=== PATIENT | male | born 1945 | race Caucasian/White ===

== ENCOUNTER → 2018-04-06 | Day surgery (SDC) | payer MEDICARE, BC ==
[2018-04-04 09:59] VITALS: BMI 41.5
[~2018-04-06] MED LIST: LACTATED RINGERS 1,000 ML IV SCH; LIDOCAINE 1% 20 ML VIAL (10MG/ML) FOR IV START INTRADERMA PRN; LIDOCAINE 1% INJ 10MG/ML (20 ML MDV) ONE; PROPOFOL 10 MG/ML 20 ML VIAL IV ONE
[2018-04-06 13:04] VITALS: RESP 16; TEMP 98.3
[2018-04-06 13:08] LABS: Glucose,Whole Blood 167 mg/dL (75-99)
--- NOTE | 2018-04-06 14:34 | P.GSHP ---
History of Present Illness H&P Date: 04/06/18 CHIEF COMPLAINT: Colon screen HISTORY OF PRESENT ILLNESS: The patient is a 72-year-old male who presents for colon screen. Lower endoscopy was offered for further evaluation and management. PAST MEDICAL HISTORY: Please see list. PAST SURGICAL HISTORY: Please see list. MEDICATIONS: Please see list. ALLERGIES: Please see list. SOCIAL HISTORY: No illicit drug use FAMILY HISTORY: No reports of Crohn disease or ulcerative colitis. REVIEW OF ORGAN SYSTEMS: CONSTITUTIONAL: No reports of fevers or chills. PHYSICAL EXAM: VITAL SIGNS: Stable GENERAL: Well-developed pleasant in no acute distress. HEENT: No scleral icterus. Extraocular movements grossly intact. Moist buccal mucosa. NECK: Supple without lymphadenopathy. CHEST: Unlabored respirations. Equal bilateral excursions. CARDIOVASCULAR: Regular rate and rhythm. Distal 2+ pulses. ABDOMEN: Soft, nontender, nondistended. MUSCULOSKELETAL: No clubbing, cyanosis, or edema. ASSESSMENT: 1. Colon screen. PLAN: 1. 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 Last Myocardial Infarction Date:: 2012 History of Any Multi-Drug Resistant Organisms: None Reported Past Surgical History: Coronary Bypass/CABG, Heart Catheterization With Stent, Hernia Repair, Orthopedic Surgery Additional Past Surgical History / Comment(s): CABG X4-2006, STENT X1, UMBILICAL AND INCISIONAL HERNIA, RT SHOULDER ARTHROSCOPY, RT KNEE ARTHROSCOPY Past Anesthesia/Blood Transfusion Reactions: No Reported Reaction Date of Last Stent Placement:: 2011 Smoking Status: Former smoker - Past Family History Mother Family Medical History: Deep Vein Thrombosis (DVT) Medications and Allergies Home Medications Medication Instructions Recorded Confirmed Type Aspirin 162 mg PO DAILY 11/08/13 04/04/18 History Clopidogrel [Plavix] 75 mg PO DAILY 11/08/13 04/04/18 History FLUoxetine HCL [PROzac] 20 mg PO DAILY 11/08/13 04/04/18 History Metoprolol Tartrate [Lopressor] 50 mg PO BID 11/08/13 04/04/18 History Nitroglycerin Sl Tabs [Nitrostat] 0.4 mg PO Q5M PRN 11/08/13 04/04/18 History Pantoprazole Sodium [Protonix] 40 mg PO HS 11/08/13 04/04/18 History metFORMIN HCL [Glucophage] 500 mg PO TID 11/08/13 04/04/18 History Cholecalciferol [Vitamin D3] 1,000 unit PO DAILY 08/13/15 04/04/18 History Multivitamins, Thera [Multivitamin] 1 tab PO DAILY 08/13/15 04/04/18 History Psyllium Husk 100% [Metamucil] 6 gm PO DAILY 08/13/15 04/04/18 History Atorvastatin [Lipitor] 40 mg PO DAILY 04/04/18 04/04/18 History Finasteride [Proscar] 5 mg PO DAILY 04/04/18 04/04/18 History Losartan Potassium [Cozaar] 100 mg PO QAM 04/04/18 04/04/18 History Allergies Allergy/AdvReac Type Severity Reaction Status Date / Time adhesive Allergy red skin Verified 04/06/18 12:55 bacitracin Allergy Rash/Hives Verified 04/06/18 12:55 [From Neosporin ([id number])] bacitracin zinc Allergy Rash/Hives Verified 04/06/18 12:55 [From Neosporin ([id number])] neomycin sulfate Allergy Rash/Hives Verified 04/06/18 12:55 [From Neosporin ([id number])] polymyxin B Allergy Rash/Hives Verified 04/06/18 12:55 [From Neosporin ([id number])] Surgical - Exam Vital Signs Temp Pulse Resp BP Pulse Ox 98.3 F 61 16 159/84 97 04/06/18 13:03 04/06/18 13:03 04/06/18 13:03 04/06/18 13:03 04/06/18 13:03 Results - Labs Abnormal Lab Results - Last 24 Hours (Table) 04/06/18 Range/Units 13:05 POC Glucose (mg/dL) 167 H (75-99) mg/dL
--- NOTE | 2018-04-06 14:40 | P.PCN ---
Date of Procedure: 04/06/18 Description of Procedure: PREOPERATIVE DIAGNOSIS: Personal history of colon polyps. Family history of colon cancer, brother POSTOPERATIVE DIAGNOSIS: Personal history of colon polyps. Family history of colon cancer, brother Multiple tubular adenomas throughout the colon. Diverticulosis with diverticulitis OPERATION: Colonoscopy to the ileocecal valve and appendiceal orifice. Colonoscopy with multiple hot snare polypectomies SURGEON: Faviola Arroyo MD. ANESTHESIA: MAC. INDICATIONS: The patient is a 72-year-old male who presents for colonoscopy screening. Last colonoscopy 3 years ago. Benefits and risks were described and informed consent was obtained. DESCRIPTION OF PROCEDURE: The patient had undergone Gatorade, MiraLAX and Dulcolax prep. He had been brought into the operating room and laid in the left lateral decubitus position. The prostate was unremarkable. After adequate intravenous sedation, the rectum was examined with 2% lidocaine jelly. External hemorrhoids were encountered. The rectal tone was within normal limits. No lesions were palpated in the rectal vault. An Olympus colonoscope was advanced until the ileocecal valve and appendiceal orifice were clearly viewed. Abdominal pressure was used to advance the scope. He had a highly redundant sigmoid colon. The prep was fair. No scattered diverticulosis was encountered. Multiple colonic polyps were found and snare polypectomy. Focal colitis was found. Retroflexion of the scope demonstrated no grade 1 internal hemorrhoids. The colon was desufflated. The patient had tolerated the procedure well. Withdrawal time was over 6 minutes. FINDINGS: No internal hemorrhoids No external hemorrhoids No arteriovenous malformations Severe sigmoid diverticulosis with diverticulitis Removal of 5 polyps: - Snare polypectomy ascending colon 2, 5 mm tubulovillous adenoma polyp. - Snare polypectomy hepatic flexure 2, 8 mm and 6 mm villous adenoma polyp. - Snare polypectomy proximal transverse colon, 11 mm villous adenoma polyp. Sigmoid focal colitis. RECOMMENDATIONS: Given severity of tubular adenomas, repeat colonoscopy in 6 months, September 2018 Plan - Discharge Summary New Discharge Prescriptions: No Action metFORMIN HCL [Glucophage] 500 mg PO TID Pantoprazole Sodium [Protonix] 40 mg PO HS Nitroglycerin Sl Tabs [Nitrostat] 0.4 mg PO Q5M PRN PRN Reason: Angina Metoprolol Tartrate [Lopressor] 50 mg PO BID FLUoxetine HCL [PROzac] 20 mg PO DAILY Clopidogrel [Plavix] 75 mg PO DAILY Aspirin 162 mg PO DAILY Psyllium Husk 100% [Metamucil] 6 gm PO DAILY Multivitamins, Thera [Multivitamin] 1 tab PO DAILY Cholecalciferol [Vitamin D3] 1,000 unit PO DAILY Atorvastatin [Lipitor] 40 mg PO DAILY Finasteride [Proscar] 5 mg PO DAILY Losartan Potassium [Cozaar] 100 mg PO QAM Discharge Medication List Aspirin 162 mg PO DAILY 11/08/13 [History] Clopidogrel [Plavix] 75 mg PO DAILY 11/08/13 [History] FLUoxetine HCL [PROzac] 20 mg PO DAILY 11/08/13 [History] Metoprolol Tartrate [Lopressor] 50 mg PO BID 11/08/13 [History] Nitroglycerin Sl Tabs [Nitrostat] 0.4 mg PO Q5M PRN 11/08/13 [History] Pantoprazole Sodium [Protonix] 40 mg PO HS 11/08/13 [History] metFORMIN HCL [Glucophage] 500 mg PO TID 11/08/13 [History] Cholecalciferol [Vitamin D3] 1,000 unit PO DAILY 08/13/15 [History] Multivitamins, Thera [Multivitamin] 1 tab PO DAILY 08/13/15 [History] Psyllium Husk 100% [Metamucil] 6 gm PO DAILY 08/13/15 [History] Atorvastatin [Lipitor] 40 mg PO DAILY 04/04/18 [History] Finasteride [Proscar] 5 mg PO DAILY 04/04/18 [History] Losartan Potassium [Cozaar] 100 mg PO QAM 04/04/18 [History]
[2018-04-06 14:46] VITALS: BP 115/66; PULSE 59
== END | disposition home or self-care (01) ==
LOC: ORWHC2ENDO 12:23
PROVIDERS: ATTEND Surgery Plastic and Reconstructive Surgery
DX: Z12.11 Encounter for screening for malignant neoplasm of colon (principal); D12.2 Benign neoplasm of ascending colon; D12.3 Benign neoplasm of transverse colon; K52.9 Noninfective gastroenteritis and colitis, unspecified; K57.32 Diverticulitis of large intestine without perforation or abscess without bleeding; K64.4 Residual hemorrhoidal skin tags; Q43.8 Other specified congenital malformations of intestine; E11.9 Type 2 diabetes mellitus without complications; E78.5 Hyperlipidemia, unspecified; I25.10 Atherosclerotic heart disease of native coronary artery without angina pectoris; I25.2 Old myocardial infarction; I42.9 Cardiomyopathy, unspecified; K21.9 Gastro-esophageal reflux disease without esophagitis; Z79.82 Long term (current) use of aspirin; Z80.0 Family history of malignant neoplasm of digestive organs; Z85.828 Personal history of other malignant neoplasm of skin; Z86.010 Personal history of colon polyps; Z87.442 Personal history of urinary calculi; Z87.891 Personal history of nicotine dependence; Z95.1 Presence of aortocoronary bypass graft; Z79.84 Long term (current) use of oral hypoglycemic drugs; Z79.02 Long term (current) use of antithrombotics/antiplatelets; Z79.899 Other long term (current) drug therapy; Z88.3 Allergy status to other anti-infective agents
CPT/HCPCS: 88305; 45385; J2001; J2704

== ENCOUNTER → 2018-05-04 | Outpatient (CLI) | payer MEDICARE, BC ==
--- NOTE | 2018-05-04 13:35 | XR ---
EXAMINATION TYPE: XR chest 2V DATE OF EXAM: 05/04/2018 COMPARISON: Prior chest x-ray 09/23/2015 HISTORY: Pleurisy TECHNIQUE: Frontal and lateral views of the chest are obtained. FINDINGS: Patient is post median sternotomy and there is increased AP diameter chest with flattening the hemidiaphragms consistent with underlying COPD. There is no focal air space opacity, pleural eff usion, or pneumothorax seen. The cardiac silhouette size is within normal limits. The osseous stru ctures are intact. IMPRESSION: No acute cardiopulmonary process.
== END ==
LOC: RADXRMAIN 12:26
PROVIDERS: ATTEND Family Medicine
DX: R09.1 Pleurisy (principal)
CPT/HCPCS: 71046

== ENCOUNTER 2018-10-04 07:10 | Day surgery (SDC) | payer MEDICARE, BC ==
[2018-09-28 14:39] VITALS: BMI 42.7
[~2018-10-04 07:10] MED LIST changes: -LIDOCAINE 1% INJ 10MG/ML (20 ML MDV) ONE; -PROPOFOL 10 MG/ML 20 ML VIAL IV ONE
--- NOTE | 2018-10-04 07:38 | P.GSHP ---
History of Present Illness H&P Date: 10/04/18 CHIEF COMPLAINT: Colon screen HISTORY OF PRESENT ILLNESS: The patient is a 73-year-old male who presents for colon screen. Lower endoscopy was offered for further evaluation and management. PAST MEDICAL HISTORY: Please see list. PAST SURGICAL HISTORY: Please see list. MEDICATIONS: Please see list. ALLERGIES: Please see list. SOCIAL HISTORY: No illicit drug use FAMILY HISTORY: No reports of Crohn disease or ulcerative colitis. REVIEW OF ORGAN SYSTEMS: CONSTITUTIONAL: No reports of fevers or chills. PHYSICAL EXAM: VITAL SIGNS: Stable GENERAL: Well-developed pleasant in no acute distress. HEENT: No scleral icterus. Extraocular movements grossly intact. Moist buccal mucosa. NECK: Supple without lymphadenopathy. CHEST: Unlabored respirations. Equal bilateral excursions. CARDIOVASCULAR: Regular rate and rhythm. Distal 2+ pulses. ABDOMEN: Soft, nontender, nondistended. MUSCULOSKELETAL: No clubbing, cyanosis, or edema. ASSESSMENT: 1. Colon screen. PLAN: 1. Recommend proceeding with a lower endoscopy Past Medical History Past Medical History: Coronary Artery Disease (CAD), Cancer, Chest Pain / Angina, COPD, Diabetes Mellitus, GERD/Reflux, Hyperlipidemia, Hypertension, Myocardial Infarction ([place]), Osteoarthritis (OA), Prostate Disorder Additional Past Medical History / Comment(s): PAST HX CARDIOMYOPATHY, RENAL CALCULUS, SQUAMOUS CELL SKIN CANCER (2017)., MILD COPD, BPH ., ARTHRITIS IN KNE ES., HX OF COLON POLYPS, CHANGE IN BOWEL MOVEMENTS. Last Myocardial Infarction Date:: 2012 History of Any Multi-Drug Resistant Organisms: None Reported Past Surgical History: Coronary Bypass/CABG, Heart Catheterization With Stent, Hernia Repair, Orthopedic Surgery Additional Past Surgical History / Comment(s): CABG X4-2006, STENT X1, UMBILICAL AND INCISIONAL HERNIA, RT SHOULDER ARTHROSCOPY, RT KNEE ARTHROSCOPY Past Anesthesia/Blood Transfusion Reactions: No Reported Reaction Date of Last Stent Placement:: 2011 Past Psychological History: Anxiety Smoking Status: Former smoker Past Alcohol Use History: Rare Additional Past Alcohol Use History / Comment(s): quit smoking , SMOKED 1/2 PPD Past Drug Use History: None Reported - Past Family History Mother Family Medical History: Deep Vein Thrombosis (DVT) Brother(s) Family Medical History: Cancer Additional Family Medical History / Comment(s): COLON CANCER Sister(s) Family Medical History: Cancer Additional Family Medical History / Comment(s): LUNG CANCER Medications and Allergies Home Medications Medication Instructions Recorded Confirmed Type Aspirin 162 mg PO HS 11/08/13 10/04/18 History Clopidogrel [Plavix] 75 mg PO DAILY 11/08/13 10/04/18 History FLUoxetine HCL [PROzac] 20 mg PO DAILY 11/08/13 10/04/18 History Metoprolol Tartrate [Lopressor] 50 mg PO BID 11/08/13 10/04/18 History Pantoprazole Sodium [Protonix] 40 mg PO HS 11/08/13 10/04/18 History metFORMIN HCL [Glucophage] 500 mg PO TID 11/08/13 10/04/18 History Cholecalciferol [Vitamin D3] 5,000 unit PO DAILY 08/13/15 10/04/18 History Atorvastatin [Lipitor] 40 mg PO DAILY 04/04/18 10/04/18 History Finasteride [Proscar] 5 mg PO DAILY 04/04/18 10/04/18 History Losartan Potassium [Cozaar] 100 mg PO DAILY@1600 04/04/18 10/04/18 History ALPRAZolam [Xanax] 0.5 mg PO BID PRN 09/28/18 10/04/18 History Melatonin 10 mg PO HS PRN 09/28/18 10/04/18 History Allergies Allergy/AdvReac Type Severity Reaction Status Date / Time adhesive Allergy red skin Verified 10/04/18 07:29 bacitracin Allergy Rash/Hives Verified 10/04/18 07:29 [From Neosporin ([id number])] bacitracin zinc Allergy Rash/Hives Verified 10/04/18 07:29 [From Neosporin ([id number])] neomycin sulfate Allergy Rash/Hives Verified 10/04/18 07:29 [From Neosporin ([id number])] polymyxin B Allergy Rash/Hives Verified 10/04/18 07:29 [From Neosporin ([id number])]
[2018-10-04 07:49] VITALS: TEMP 97.5
[2018-10-04 07:53] LABS: Glucose,Whole Blood 131 mg/dL (75-99)
[2018-10-04] MEDS ORDERED: LIDOCAINE 1% INJ 10MG/ML (20 ML MDV) ONE (07:57)
[2018-10-04] MEDS ORDERED: PROPOFOL 10 MG/ML 20 ML VIAL IV ONE (07:57)
--- NOTE | 2018-10-04 08:36 | P.PCN ---
Date of Procedure: 10/04/18 Description of Procedure: PREOPERATIVE DIAGNOSIS: Personal history of colon polyps. Family history colon cancer, brother POSTOPERATIVE DIAGNOSIS: Personal history of colon polyps. Family history colon cancer, brother Multiple tubular adenomas throughout the colon. Internal hemorrhoids, grade 2 Diverticulosis with diverticulitis OPERATION: Colonoscopy to the ileocecal valve and appendiceal orifice. Colonoscopy with multiple hot snare polypectomies Colonoscopy with multiple cold forceps biopsies. SURGEON: Faviola Arroyo MD. ANESTHESIA: MAC. INDICATIONS: The patient is a 73-year-old male who presents for colonoscopy screening. Last colonoscopy 1 year ago with multiple polyps extracted. Benefits and risks were described and informed consent was obtained. DESCRIPTION OF PROCEDURE: The patient had undergone Suprep. He had been brought into the operating room and laid in the left lateral decubitus position. After adequate intravenous sedation, the rectum was examined with 2% lidocaine jelly. No external hemorrhoids were encountered. The rectal tone was within normal limits. No lesions were palpated in the rectal vault. An Olympus colonoscope was advanced until the ileocecal valve and appendiceal orifice were clearly viewed. The prep was good with visualization of the mucosal folds. The scope was removed with visualization of each mucosal fold. Moderate scattered diverticulosis was encountered with diverticulitis of the sigmoid colon. Multiple colonic polyps were found and cold forcep biopsy or snare polypectomy. No evidence of focal colitis was found. Retroflexion of the scope demonstrated grade 2 internal hemorrhoids without active bleeding or inflammation. The colon was desufflated. The patient had tolerated the procedure well. Withdrawal time was over 6 minutes. FINDINGS: Aronchick preparation quality scale 1 (1-5) Internal hemorrhoids, grade 2 No external hemorrhoids No arteriovenous malformations Moderate scattered diverticulosis with diverticulitis of the sigmoid colon Removal of 9 polyps: - Snare polypectomy 40 cm from the anal verge x 2 , 8 mm tubulovillous adenoma polyp, descending colon - Snare polypectomy distal transverse colon x 2, 5 mm flat villous adenoma polyp. - Cold forceps biopsy at 20 cm from the anal verge, 4 mm polyp, descending colon - Cold forceps biopsy at splenic flexure, 4 mm polyp. - Cold forceps biopsy at mid transverse colon x 2, 5 mm polyp. - Cold forceps biopsy at proximal transverse colon, 4 mm polyp. No focal colitis. RECOMMENDATIONS: Given severity of tubular adenomas, recommend repeat colonoscopy 2019 Plan - Discharge Summary Discharge Rx Participant: No New Discharge Prescriptions: No Action metFORMIN HCL [Glucophage] 500 mg PO TID Pantoprazole Sodium [Protonix] 40 mg PO HS Metoprolol Tartrate [Lopressor] 50 mg PO BID FLUoxetine HCL [PROzac] 20 mg PO DAILY Clopidogrel [Plavix] 75 mg PO DAILY Aspirin 162 mg PO HS Cholecalciferol [Vitamin D3] 5,000 unit PO DAILY Atorvastatin [Lipitor] 40 mg PO DAILY Finasteride [Proscar] 5 mg PO DAILY Losartan Potassium [Cozaar] 100 mg PO DAILY@1600 ALPRAZolam [Xanax] 0.5 mg PO BID PRN PRN Reason: Anxiety Melatonin 10 mg PO HS PRN PRN Reason: Insomnia Discharge Medication List Aspirin 162 mg PO HS 11/08/13 [History] Clopidogrel [Plavix] 75 mg PO DAILY 11/08/13 [History] FLUoxetine HCL [PROzac] 20 mg PO DAILY 11/08/13 [History] Metoprolol Tartrate [Lopressor] 50 mg PO BID 11/08/13 [History] Pantoprazole Sodium [Protonix] 40 mg PO HS 11/08/13 [History] metFORMIN HCL [Glucophage] 500 mg PO TID 11/08/13 [History] Cholecalciferol [Vitamin D3] 5,000 unit PO DAILY 08/13/15 [History] Atorvastatin [Lipitor] 40 mg PO DAILY 04/04/18 [History] Finasteride [Proscar] 5 mg PO DAILY 04/04/18 [History] Losartan Potassium [Cozaar] 100 mg PO DAILY@1600 04/04/18 [History] ALPRAZolam [Xanax] 0.5 mg PO BID PRN 09/28/18 [History] Melatonin 10 mg PO HS PRN 09/28/18 [History] Follow up Appointment(s)/Referral(s): Faviola Arroyo MD [STAFF PHYSICIAN] - 10/10/18 Patient Instructions/Handouts: Colorectal Polyps (DC), Diverticulitis (DC), Diverticulitis Diet (DC) Activity/Diet/Wound Care/Special Instructions: Repeat colonoscopy year2019 Discharge Disposition: HOME SELF-CARE
[2018-10-04 08:58] VITALS: BP 155/80; PULSE 58; RESP 18
== END 2018-10-04 09:10 | disposition home or self-care (01) ==
LOC: ORWHC2ENDO 07:10
PROVIDERS: ATTEND Surgery Plastic and Reconstructive Surgery
DX: Z12.11 Encounter for screening for malignant neoplasm of colon (principal); D12.3 Benign neoplasm of transverse colon; D12.4 Benign neoplasm of descending colon; K63.5 Polyp of colon; K57.92 Diverticulitis of intestine, part unspecified, without perforation or abscess without bleeding; K64.1 Second degree hemorrhoids; Z86.010 Personal history of colon polyps; Z80.0 Family history of malignant neoplasm of digestive organs; I25.119 Atherosclerotic heart disease of native coronary artery with unspecified angina pectoris; I11.9 Hypertensive heart disease without heart failure; I43 Cardiomyopathy in diseases classified elsewhere; Z87.891 Personal history of nicotine dependence; J44.9 Chronic obstructive pulmonary disease, unspecified; E11.9 Type 2 diabetes mellitus without complications; K21.9 Gastro-esophageal reflux disease without esophagitis; E78.5 Hyperlipidemia, unspecified; I25.2 Old myocardial infarction; N40.0 Benign prostatic hyperplasia without lower urinary tract symptoms; Z87.442 Personal history of urinary calculi; Z85.828 Personal history of other malignant neoplasm of skin; M17.0 Bilateral primary osteoarthritis of knee; Z95.1 Presence of aortocoronary bypass graft; Z95.5 Presence of coronary angioplasty implant and graft; F32.9 Major depressive disorder, single episode, unspecified; F41.9 Anxiety disorder, unspecified; Z80.1 Family history of malignant neoplasm of trachea, bronchus and lung; Z79.84 Long term (current) use of oral hypoglycemic drugs; Z79.02 Long term (current) use of antithrombotics/antiplatelets; Z79.82 Long term (current) use of aspirin; Z79.899 Other long term (current) drug therapy; Z88.8 Allergy status to other drugs, medicaments and biological substances; Z91.09 Other allergy status, other than to drugs and biological substances
CPT/HCPCS: 88305; 45380; 45385; J2001; J2704

== ENCOUNTER 2019-07-04 | Observation (INO) | payer MEDICARE, BC | END 2019-07-05 16:28 | PROVIDERS: ADMIT Family Medicine | CPT/HCPCS: 93005 ×2; 96365; 96366; 99285; 36415; 93017; 80061; 80053; 82150; 83690 ×2; 83735; 84484 ×2; 85025; 85610; 85730; 81001; 71046; 71260; 78452; G0378 ×2; C8929; A9500; J0280; J3475; J1245; Q9950; Q9967; 93306 ==

== ENCOUNTER 2019-10-24 06:39 | Day surgery (SDC) | payer MEDICARE, BC ==
[2019-10-22 10:14] VITALS: BMI 23.0
[~2019-10-24 06:39] MED LIST changes: -LIDOCAINE 1% 20 ML VIAL (10MG/ML) FOR IV START INTRADERMA PRN
[2019-10-24 07:04] VITALS: TEMP 97.8
[2019-10-24] MEDS ORDERED: LACTATED RINGERS 1,000 ML IV ONE (07:04)
[2019-10-24 07:11] LABS: Glucose,Whole Blood 138 mg/dL (75-99)
[2019-10-24] MEDS ORDERED: LIDOCAINE 1% (10MG/ML) FOR IV START INTRADERMA ONE (07:12)
[2019-10-24] MEDS ORDERED: PROPOFOL 10 MG/ML 20 ML VIAL IV ONE (07:30)
--- NOTE | 2019-10-24 08:00 | P.GSHP ---
History of Present Illness H&P Date: 10/24/19 CHIEF COMPLAINT: Colon screen HISTORY OF PRESENT ILLNESS: The patient is a 74-year-old male who presents for colon screen. Lower endoscopy was offered for further evaluation and management. PAST MEDICAL HISTORY: Please see list. PAST SURGICAL HISTORY: Please see list. MEDICATIONS: Please see list. ALLERGIES: Please see list. SOCIAL HISTORY: No illicit drug use FAMILY HISTORY: No reports of Crohn disease or ulcerative colitis. REVIEW OF ORGAN SYSTEMS: CONSTITUTIONAL: No reports of fevers or chills. PHYSICAL EXAM: VITAL SIGNS: Stable GENERAL: Well-developed pleasant in no acute distress. HEENT: No scleral icterus. Extraocular movements grossly intact. Moist buccal mucosa. NECK: Supple without lymphadenopathy. CHEST: Unlabored respirations. Equal bilateral excursions. CARDIOVASCULAR: Regular rate and rhythm. Distal 2+ pulses. ABDOMEN: Soft, nontender, nondistended. MUSCULOSKELETAL: No clubbing, cyanosis, or edema. ASSESSMENT: 1. Colon screen. PLAN: 1. Recommend proceeding with a lower endoscopy Past Medical History Past Medical History: Coronary Artery Disease (CAD), Cancer, Chest Pain / Angina, COPD, Diabetes Mellitus, GERD/Reflux, Hyperlipidemia, Hypertension, Myocardial Infarction ([place]), Osteoarthritis (OA), Prostate Disorder Additional Past Medical History / Comment(s): PAST HX CARDIOMYOPATHY, RENAL CALCULUS, SQUAMOUS CELL SKIN CANCER (2017) MILD COPD, BPH HX OF COLON POLYPS, Last Myocardial Infarction Date:: 2011 History of Any Multi-Drug Resistant Organisms: None Reported Past Surgical History: Coronary Bypass/CABG, Heart Catheterization With Stent, Hernia Repair, Orthopedic Surgery Additional Past Surgical History / Comment(s): CABG X4-2006, STENT X1, UMBILICAL AND INCISIONAL HERNIA, RT SHOULDER ARTHROSCOPY, RT KNEE ARTHROSCOPY, colonoscopies Past Anesthesia/Blood Transfusion Reactions: No Reported Reaction Date of Last Stent Placement:: 2011 Smoking Status: Former smoker - Past Family History Mother Family Medical History: Deep Vein Thrombosis (DVT) Brother(s) Family Medical History: Cancer Additional Family Medical History / Comment(s): COLON CANCER Sister(s) Family Medical History: Cancer Additional Family Medical History / Comment(s): LUNG CANCER Medications and Allergies Home Medications Medication Instructions Recorded Confirmed Type Aspirin 81 mg PO HS 11/08/13 10/22/19 History Clopidogrel [Plavix] 75 mg PO DAILY 11/08/13 10/22/19 History Pantoprazole Sodium [Protonix] 40 mg PO HS 11/08/13 10/22/19 History metFORMIN HCL [Glucophage] 1,000 mg PO HS 11/08/13 10/22/19 History Cholecalciferol [Vitamin D3 (25 5,000 unit PO DAILY@1600 08/13/15 10/22/19 History Mcg = 1000 Iu)] Atorvastatin [Lipitor] 40 mg PO HS 04/04/18 10/22/19 History Finasteride [Proscar] 5 mg PO DAILY 04/04/18 10/22/19 History Losartan Potassium [Cozaar] 100 mg PO DAILY@1600 04/04/18 10/22/19 History ALPRAZolam [Xanax] 0.5 mg PO 2100 09/28/18 10/22/19 History Melatonin 10 mg PO HS 09/28/18 10/22/19 History Empagliflozin [Jardiance] 25 mg PO DAILY 07/05/19 10/22/19 History FLUoxetine HCL [PROzac] 20 mg PO QAM 07/05/19 10/22/19 History Furosemide [Lasix] 20 mg PO DAILY 07/05/19 10/22/19 History Metoprolol Tartrate [Lopressor] 50 mg PO BID@0900,1400 07/05/19 10/22/19 History Nitroglycerin Sl Tabs [Nitrostat] 0.4 mg SUBLINGUAL Q5M PRN 07/05/19 10/22/19 History metFORMIN HCL [Glucophage] 1,000 mg PO DAILY@1600 07/05/19 10/22/19 History ALPRAZolam [Xanax] 0.25 mg PO 1400 10/22/19 10/22/19 History Allergies Allergy/AdvReac Type Severity Reaction Status Date / Time adhesive Allergy red skin Verified 10/22/19 10:07 bacitracin Allergy Rash/Hives Verified 10/22/19 10:07 [From Neosporin ([id number])] bacitracin zinc Allergy Rash/Hives Verified 10/22/19 10:07 [From Neosporin ([id number])] neomycin sulfate Allergy Rash/Hives Verified 10/22/19 10:07 [From Neosporin ([id number])] polymyxin B Allergy Rash/Hives Verified 10/22/19 10:07 [From Neosporin ([id number])] Surgical - Exam Vital Signs Temp Pulse Resp BP Pulse Ox 97.8 F 59 L 18 200/90 97 10/24/19 07:03 10/24/19 07:03 10/24/19 07:03 10/24/19 07:03 10/24/19 07:03 Results - Labs Abnormal Lab Results - Last 24 Hours (Table) 10/24/19 Range/Units 07:09 POC Glucose (mg/dL) 138 H (75-99) mg/dL
--- NOTE | 2019-10-24 08:05 | P.PCN ---
Date of Procedure: 10/24/19 Description of Procedure: PREOPERATIVE DIAGNOSIS: Personal history of colon polyps, high-risk adenomas POSTOPERATIVE DIAGNOSIS: Personal history of colon polyps, high-risk adenomas Tubular adenoma cecum Tubular adenoma hepatic flexure Tubular adenoma transverse colon Sigmoid diverticulosis Internal hemorrhoids, grade 2 OPERATION: Colonoscopy to the ileocecal valve and appendiceal orifice, cecum Colonoscopy with multiple hot snare polypectomies Colonoscopy with cold forceps biopsies SURGEON: Faviola Arroyo MD. ANESTHESIA: MAC. INDICATIONS: The patient is an 74-year-old male who presents with personal history of colon polyps. Last less than 5 years. Benefits and risks were described and informed consent was obtained. DESCRIPTION OF PROCEDURE: The patient had undergone Suprep. He had been brought into the operating room and laid in the left lateral decubitus position. After adequate intravenous sedation, the rectum was examined with 2% lidocaine jelly. The prostate was unremarkable. External hemorrhoids were encountered. The rectal tone was within normal limits. No lesions were palpated in the rectal vault. An Olympus colonoscope was advanced until the cecum, ileocecal valve and appendiceal orifice were clearly viewed. The prep was excellent. Sigmoid diverticulosis was encountered. Multiple colonic polyps were found and cold forceps biopsy including snare polypectomy. No evidence of focal colitis was found. Retroflexion of the scope demonstrated grade 2 internal hemorrhoids without active bleeding or inflammation. The colon was desufflated. The patient had tolerated the procedure well. Withdrawal time was over 6 minutes. FINDINGS: Aronchick preparation quality scale 1 (1-5) Internal hemorrhoids, grade 2 External hemorrhoids, grade 2 No arteriovenous malformations. Sigmoid diverticulosis Removal of 4 polyps: - Snare polypectomy hepatic flexure, 8 mm tubulovillous adenoma polyp. - Cold forceps biopsy at cecum, 4 mm polyp. - Cold forceps biopsy at mid transverse colon, 5 mm polyp. - Cold forceps biopsy at distal transverse colon, 4 mm polyp. No focal colitis. RECOMMENDATIONS: Repeat colonoscopy 2 years, 2021 Plan - Discharge Summary Discharge Rx Participant: No New Discharge Prescriptions: Continue metFORMIN HCL [Glucophage] 1,000 mg PO HS Pantoprazole Sodium [Protonix] 40 mg PO HS Clopidogrel [Plavix] 75 mg PO DAILY Aspirin 81 mg PO HS Cholecalciferol [Vitamin D3 (25 Mcg = 1000 Iu)] 5,000 unit PO DAILY@1600 Atorvastatin [Lipitor] 40 mg PO HS Finasteride [Proscar] 5 mg PO DAILY Losartan Potassium [Cozaar] 100 mg PO DAILY@1600 ALPRAZolam [Xanax] 0.5 mg PO 2100 Melatonin 10 mg PO HS Empagliflozin [Jardiance] 25 mg PO DAILY FLUoxetine HCL [PROzac] 20 mg PO QAM Furosemide [Lasix] 20 mg PO DAILY metFORMIN HCL [Glucophage] 1,000 mg PO DAILY@1600 Metoprolol Tartrate [Lopressor] 50 mg PO BID@0900,1400 Nitroglycerin Sl Tabs [Nitrostat] 0.4 mg SUBLINGUAL Q5M PRN PRN Reason: Chest Pain ALPRAZolam [Xanax] 0.25 mg PO 1400 Discharge Medication List Aspirin 81 mg PO HS 11/08/13 [History] Clopidogrel [Plavix] 75 mg PO DAILY 11/08/13 [History] Pantoprazole Sodium [Protonix] 40 mg PO HS 11/08/13 [History] metFORMIN HCL [Glucophage] 1,000 mg PO HS 11/08/13 [History] Cholecalciferol [Vitamin D3 (25 Mcg = 1000 Iu)] 5,000 unit PO DAILY@1600 08/13/15 [History] Atorvastatin [Lipitor] 40 mg PO HS 04/04/18 [History] Finasteride [Proscar] 5 mg PO DAILY 04/04/18 [History] Losartan Potassium [Cozaar] 100 mg PO DAILY@1600 04/04/18 [History] ALPRAZolam [Xanax] 0.5 mg PO 2100 09/28/18 [History] Melatonin 10 mg PO HS 09/28/18 [History] Empagliflozin [Jardiance] 25 mg PO DAILY 07/05/19 [History] FLUoxetine HCL [PROzac] 20 mg PO QAM 07/05/19 [History] Furosemide [Lasix] 20 mg PO DAILY 07/05/19 [History] Metoprolol Tartrate [Lopressor] 50 mg PO BID@0900,1400 07/05/19 [History] Nitroglycerin Sl Tabs [Nitrostat] 0.4 mg SUBLINGUAL Q5M PRN 07/05/19 [History] metFORMIN HCL [Glucophage] 1,000 mg PO DAILY@1600 07/05/19 [History] ALPRAZolam [Xanax] 0.25 mg PO 1400 10/22/19 [History] Follow up Appointment(s)/Referral(s): Faviola Arroyo MD [STAFF PHYSICIAN] - As Needed Patient Instructions/Handouts: Diverticulosis Diet (GEN), Diverticulosis (GEN), Colorectal Polyps (DC) Activity/Diet/Wound Care/Special Instructions: Start Lasix and Plavix tomorrow 10/25/2019. Repeat colonoscopy in 2 years, 2021 Discharge Disposition: HOME SELF-CARE
[2019-10-24 08:26] VITALS: BP 109/80; PULSE 67; RESP 18
== END 2019-10-24 09:06 | disposition home or self-care (01) ==
LOC: ORWHC2ENDO 06:39
PROVIDERS: ATTEND Surgery Plastic and Reconstructive Surgery
DX: Z12.11 Encounter for screening for malignant neoplasm of colon (principal); D12.0 Benign neoplasm of cecum; D12.3 Benign neoplasm of transverse colon; K57.30 Diverticulosis of large intestine without perforation or abscess without bleeding; K64.1 Second degree hemorrhoids; K64.4 Residual hemorrhoidal skin tags; Z86.010 Personal history of colon polyps; E11.9 Type 2 diabetes mellitus without complications; I25.10 Atherosclerotic heart disease of native coronary artery without angina pectoris; J44.9 Chronic obstructive pulmonary disease, unspecified; K21.9 Gastro-esophageal reflux disease without esophagitis; E78.5 Hyperlipidemia, unspecified; I10 Essential (primary) hypertension; I25.2 Old myocardial infarction; M19.90 Unspecified osteoarthritis, unspecified site; N40.0 Benign prostatic hyperplasia without lower urinary tract symptoms; I42.9 Cardiomyopathy, unspecified; Z85.828 Personal history of other malignant neoplasm of skin; Z87.442 Personal history of urinary calculi; Z95.1 Presence of aortocoronary bypass graft; Z95.5 Presence of coronary angioplasty implant and graft; Z98.890 Other specified postprocedural states; Z87.19 Personal history of other diseases of the digestive system; Z87.891 Personal history of nicotine dependence; Z79.82 Long term (current) use of aspirin; Z79.02 Long term (current) use of antithrombotics/antiplatelets; Z79.899 Other long term (current) drug therapy; Z79.84 Long term (current) use of oral hypoglycemic drugs; Z91.09 Other allergy status, other than to drugs and biological substances; Z88.1 Allergy status to other antibiotic agents; Z95.810 Presence of automatic (implantable) cardiac defibrillator; Z82.49 Family history of ischemic heart disease and other diseases of the circulatory system; Z80.0 Family history of malignant neoplasm of digestive organs; Z80.1 Family history of malignant neoplasm of trachea, bronchus and lung
CPT/HCPCS: 45385; 45380; 88305; J2704

== ENCOUNTER 2019-10-25 19:30 | Inpatient (IN) | payer MEDICARE, BC ==
--- NOTE | 2019-10-25 20:23 | ED ---
Abdominal Pain HPI - General Chief Complaint: Abdominal Pain Stated Complaint: Abdominal pain Time Seen by Provider: 10/25/19 19:58 Source: patient, family, RN notes reviewed Mode of arrival: ambulatory Limitations: no limitations - History of Present Illness Initial Comments: Is a 74-year-old male who had a colonoscopy done yesterday with REMOVED who s tates that he was fine until around 3:00 this afternoon when he started developing some nonspecific abdominal pain 8/10 severity achy in nature is been pretty much constant he denies any fevers chills nausea vomiting sweats however he states she's had very little bowel movement but he did get prepped for colonoscopy. He does state the stool he did have is dark. He has no other complaints at this time no other current modifying factors known. MD Complaint: abdominal pain - Related Data Home Medications Medication Instructions Recorded Confirmed Aspirin 162 mg PO HS@2300 11/08/13 10/25/19 Clopidogrel [Plavix] 75 mg PO DAILY 11/08/13 10/25/19 Pantoprazole Sodium [Protonix] 40 mg PO HS@2300 11/08/13 10/25/19 Atorvastatin [Lipitor] 40 mg PO HS@2300 04/04/18 10/25/19 Finasteride [Proscar] 5 mg PO DAILY 04/04/18 10/25/19 Losartan Potassium [Cozaar] 100 mg PO AC-SUPPER@1800 04/04/18 10/25/19 ALPRAZolam [Xanax] 0.5 mg PO HS@2300 09/28/18 10/25/19 Melatonin 10 mg PO HS@2300 09/28/18 10/25/19 FLUoxetine HCL [PROzac] 20 mg PO DAILY 07/05/19 10/25/19 Furosemide [Lasix] 20 mg PO DAILY 07/05/19 10/25/19 Metoprolol Tartrate [Lopressor] 50 mg PO AC-BID@0900,1800 07/05/19 10/25/19 Nitroglycerin Sl Tabs [Nitrostat] 0.4 mg SUBLINGUAL Q5M PRN 07/05/19 10/25/19 metFORMIN HCL [Glucophage] 1,000 mg PO BID@1800,2300 07/05/19 10/25/19 ALPRAZolam [Xanax] 0.25 mg PO AC-SUPPER@1800 10/22/19 10/25/19 Ascorbic Acid/Ascorbate Sodium 250 mg PO HS@2300 10/25/19 10/25/19 [Vitamin C 250 mg Tablet Chew] Cholecalciferol (Vitamin D3) 125 mcg PO HS@2300 10/25/19 10/25/19 [Vitamin D3] Empagliflozin [Jardiance] 25 mg PO DAILY 10/25/19 10/25/19 Multivit-Min/FA/Lycopen/Lutein 1 tab PO DAILY 10/25/19 10/25/19 [Centrum Silver Tablet] Allergies Allergy/AdvReac Type Severity Reaction Status Date / Time adhesive Allergy red skin Verified 10/25/19 21:29 bacitracin Allergy Rash/Hives Verified 10/25/19 21:29 [From Neosporin ([id number])] bacitracin zinc Allergy Rash/Hives Verified 10/25/19 21:29 [From Neosporin ([id number])] neomycin sulfate Allergy Rash/Hives Verified 10/25/19 21:29 [From Neosporin ([id number])] polymyxin B Allergy Rash/Hives Verified 10/25/19 21:29 [From Neosporin ([id number])] Review of Systems ROS Statement: Those systems with pertinent positive or pertinent negative responses have been documented in the HPI. ROS Other: All systems not noted in ROS Statement are negative. 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 COPD, BPH HX OF COLON POLYPS, Last Myocardial Infarction Date:: 2011 History of Any Multi-Drug Resistant Organisms: None Reported Past Surgical History: Coronary Bypass/CABG, Heart Catheterization With Stent, Hernia Repair, Orthopedic Surgery Additional Past Surgical History / Comment(s): CABG X4-2006, STENT X1, UMBILICAL AND INCISIONAL HERNIA, RT SHOULDER ARTHROSCOPY, RT KNEE ARTHROSCOPY, colonosc opies Past Anesthesia/Blood Transfusion Reactions: No Reported Reaction Date of Last Stent Placement:: 2011 Past Psychological History: Anxiety Smoking Status: Former smoker Past Alcohol Use History: None Reported Past Drug Use History: None Reported - Past Family History Mother Family Medical History: Deep Vein Thrombosis (DVT) Brother(s) Family Medical History: Cancer Additional Family Medical History / Comment(s): COLON CANCER Sister(s) Family Medical History: Cancer Additional Family Medical History / Comment(s): LUNG CANCER General Exam - General Exam Comments Initial Comments: This is a well-developed well-nourished awake alert oriented times 3 male Limitations: no limitations General appearance: alert, in no apparent distress Head exam: Present: atraumatic, normocephalic, normal inspection Eye exam: Present: normal appearance, PERRL, EOMI. Absent: scleral icterus, conjunctival injection, periorbital swelling ENT exam: Present: normal exam, mucous membranes moist Neck exam: Present: normal inspection. Absent: tenderness, meningismus, lympha denopathy Respiratory exam: Present: normal lung sounds bilaterally. Absent: respiratory distress, wheezes, rales, rhonchi, stridor Cardiovascular Exam: Present: regular rate, normal rhythm, normal heart sounds. Absent: systolic murmur, diastolic murmur, rubs, gallop, clicks GI/Abdominal exam: Present: soft, normal bowel sounds. Absent: distended, tenderness, guarding, rebound, rigid Extremities exam: Present: normal inspection, full ROM, normal capillary refill. Absent: tenderness, pedal edema, joint swelling, calf tenderness Back exam: Present: normal inspection Neurological exam: Present: alert, oriented X3, CN II-XII intact Psychiatric exam: Present: normal affect, normal mood Skin exam: Present: warm, dry, intact, normal color. Absent: rash Course Vital Signs 10/25/19 10/25/19 19:38 21:02 Temperature 97.7 F Pulse Rate 62 55 L Respiratory 20 16 Rate Blood Pressure 179/83 175/82 O2 Sat by Pulse 98 95 Oximetry Medical Decision Making - Medical Decision Making I did reexamine the the patient on several occasions no changes. I did discuss with him and his family regarding the findings patient will be admitted with acute pancreatitis diagnosis. I did discuss this with Dr. Lira also will be consult. Patient will be admitted to Dr. Turner. - Lab Data Result diagrams: 10/25/19 21:01 10/25/19 21:01 Lab Results 10/25/19 10/25/1920 Range/Units 21:01 21:01 21:01 WBC 8.8 (3.8-10.6) k/uL RBC 3.93 L (4.30-5.90) m/uL Hgb 13.2 (13.0-17.5) gm/dL Hct 39.3 (39.0-53.0) % MCV 100.0 (80.0-100.0) fL MCH 33.5 (25.0-35.0) pg MCHC 33.5 (31.0-37.0) g/dL RDW 15.7 H (11.5-15.5) % Plt Count 155 (150-450) k/uL Neutrophils % 67 % Lymphocytes % 21 % Monocytes % 7 % Eosinophils % 2 % Basophils % 0 % Neutrophils # 5.9 (1.3-7.7) k/uL Lymphocytes # 1.9 (1.0-4.8) k/uL Monocytes # 0.6 (0-1.0) k/uL Eosinophils # 0.2 (0-0.7) k/uL Basophils # 0.0 (0-0.2) k/uL Macrocytosis Slight Sodium 136 L (137-145) mmol/L Potassium 4.2 (3.5-5.1) mmol/L Chloride 103 (98-107) mmol/L Carbon Dioxide 24 (22-30) mmol/L Anion Gap 9 mmol/L BUN 27 H (9-20) mg/dL Creatinine 1.17 (0.66-1.25) mg/dL Est GFR (CKD-EPI)AfAm 71 (>60 ml/min/1.73 sqM) Est GFR (CKD-EPI)NonAf 61 (>60 ml/min/1.73 sqM) Glucose 136 H (74-99) mg/dL Calcium 9.0 (8.4-10.2) mg/dL Total Bilirubin 1.2 (0.2-1.3) mg/dL AST 33 (17-59) U/L ALT 27 (4-49) U/L Alkaline Phosphatase 47 (38-126) U/L Total Protein 6.3 (6.3-8.2) g/dL Albumin 3.9 (3.5-5.0) g/dL Amylase 276 H (30-110) U/L Lipase (23-300) U/L 10/25/19 Range/Units 21:01 WBC (3.8-10.6) k/uL RBC (4.30-5.90) m/uL Hgb (13.0-17.5) gm/dL Hct (39.0-53.0) % MCV (80.0-100.0) fL MCH (25.0-35.0) pg MCHC (31.0-37.0) g/dL RDW (11.5-15.5) % Plt Count (150-450) k/uL Neutrophils % % Lymphocytes % % Monocytes % % Eosinophils % % Basophils % % Neutrophils # (1.3-7.7) k/uL Lymphocytes # (1.0-4.8) k/uL Monocytes # (0-1.0) k/uL Eosinophils # (0-0.7) k/uL Basophils # (0-0.2) k/uL Macrocytosis Sodium (137-145) mmol/L Potassium (3.5-5.1) mmol/L Chloride (98-107) mmol/L Carbon Dioxide (22-30) mmol/L Anion Gap mmol/L BUN (9-20) mg/dL Creatinine (0.66-1.25) mg/dL Est GFR (CKD-EPI)AfAm (>60 ml/min/1.73 sqM) Est GFR (CKD-EPI)NonAf (>60 ml/min/1.73 sqM) Glucose (74-99) mg/dL Calcium (8.4-10.2) mg/dL Total Bilirubin (0.2-1.3) mg/dL AST (17-59) U/L ALT (4-49) U/L Alkaline Phosphatase (38-126) U/L Total Protein (6.3-8.2) g/dL Albumin (3.5-5.0) g/dL Amylase (30-110) U/L Lipase 5891 H (23-300) U/L - Radiology Data Radiology results: report reviewed (I did review the imaging there is evidence of some inflammatory changes to the pancreas), image reviewed Disposition Clinical Impression: Acute pancreatitis, Abdominal pain Disposition: ADMITTED IP TO THIS [facility] Condition: Fair Referrals: Kris King MD [Primary Care Provider] - 1-2 days
[2019-10-25 21:11] LABS: Basophils % (A) 0 %; Eosinophils # (A) 0.2 k/uL (0-0.7); Eosinophils % (A) 2 %; HCT 39.3 % (39.0-53.0); HGB 13.2 gm/dL (13.0-17.5); Lymphocytes # (A) 1.9 k/uL (1.0-4.8); Lymphocytes % (A) 21 %; MCH 33.5 pg (25.0-35.0); MCHC 33.5 g/dL (31.0-37.0); Macrocytosis Slight; Mean Platelet Volume 8.3; Monocytes # (A) 0.6 k/uL (0-1.0); Monocytes % (A) 7 %; Neutrophils # (A) 5.9 k/uL (1.3-7.7); Neutrophils % (A) 67 %; Platelet Count 155 k/uL (150-450); RBC 3.93 m/uL (4.30-5.90); RDW 15.7 % (11.5-15.5); WBC 8.8 k/uL (3.8-10.6)
[2019-10-25] MEDS ORDERED: HYDROmorphone 1 MG/ML 1 ML SYRINGE IVP STA (21:16)
[2019-10-25 21:21] LABS: Albumin 3.9 g/dL (3.5-5.0); Potassium 4.2 mmol/L (3.5-5.1); Total Bilirubin 1.2 mg/dL (0.2-1.3); Total Protein 6.3 g/dL (6.3-8.2)
[2019-10-25] MEDS: PIPERACILLIN-TAZOBACTAM 3.375 GM in SODIUM CHLORIDE 0.9% 100 ML IVPB STA ×2 (21:52→22:06)
[2019-10-25] MEDS ORDERED: PIPERACILLIN-TAZOBACTAM 3.375 GM in SODIUM CHLORIDE 0.9% 100 ML IVPB STA (21:57)
--- NOTE | 2019-10-25 21:58 | CT ---
EXAMINATION TYPE: CT abdomen pelvis w con DATE OF EXAM: 10/25/2019 COMPARISON: 02/24/2012 HISTORY: Left sided abdominal pain post colonscopy yesterday. CT DLP: 2191.5 mGycm CONTRAST: CT scan of the abdomen and pelvis is performed without Oral Contrast and with IV Contrast, patient in jected with 100ml mL of Isovue 300. FINDINGS: LUNG BASES-: No visible nodule. No infiltrate. LIVER/GB: No calcified gallstones. No space occupying hepatic lesion. Biliary tree is of normal ca liber. PANCREAS: There is mild peripancreatic stranding involving the pancreatic tail. Correlate clinically for pancreatitis with amylase and lipase. No distinct mass. SPLEEN: No splenic enlargement. No lesion seen. ADRENALS: No nodule. No thickening. KIDNEYS/BLADDER: No hydronephrosis. No nephrolithiasis. Renal cystic changes noted. Urinary bladder grossly unremarkable. BOWEL: Normal appendix. Normal bowel caliber. No inflammation. GENITAL ORGANS: No gross abnormality. LYMPH NODES: No greater than 1cm abdominal or pelvic lymph nodes are appreciated. AORTA: No significant abnormality. OSSEOUS STRUCTURES: No significant abnormality is seen. OTHER: Fat-containing umbilical hernia small in size as well as a somewhat larger epigastric ventral hernia which contains fat. Small hiatal hernia noted. IMPRESSION: 1. Correlate with amylase and lipase to exclude pancreatitis.
--- NOTE | 2019-10-25 22:57 | P.GSCN ---
History of Present Illness Consult date: 10/25/19 History of present illness: Patient seen and evaluated. He reports no problems following his colonoscopy yesterday. He confirms eating a big meal including steak, eggs and sandwiches followed by acute onset epigastric and left upper quadrant pain radiating to the left lower quadrant. He has not taken Plavix. Denies any past history of gastric ulcers. ABDOMEN: No peritonitis PLAN: 1. CT of the abdomen pelvis 2. IV fluid hydration 3. IV antibiotic for any underlying inflammation as patient has history of diverticulitis. ADDENDUM: CT of the abdomen pelvis demonstrates no colitis or free air. Findings suggestive of pancreatitis. 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 COPD, BPH HX OF COLON POLYPS, Last Myocardial Infarction Date:: 2011 History of Any Multi-Drug Resistant Organisms: None Reported Past Surgical History: Coronary Bypass/CABG, Heart Catheterization With Stent, Hernia Repair, Orthopedic Surgery Additional Past Surgical History / Comment(s): CABG X4-2006, STENT X1, UMBILICAL AND INCISIONAL HERNIA, RT SHOULDER ARTHROSCOPY, RT KNEE ARTHROSCOPY, colonosco pies Past Anesthesia/Blood Transfusion Reactions: No Reported Reaction Date of Last Stent Placement:: 2011 Past Psychological History: Anxiety Smoking Status: Former smoker Past Alcohol Use History: None Reported Past Drug Use History: None Reported - Past Family History Mother Family Medical History: Deep Vein Thrombosis (DVT) Brother(s) Family Medical History: Cancer Additional Family Medical History / Comment(s): COLON CANCER Sister(s) Family Medical History: Cancer Additional Family Medical History / Comment(s): LUNG CANCER Medications and Allergies Home Medications Medication Instructions Recorded Confirmed Type Aspirin 162 mg PO HS@2300 11/08/13 10/25/19 History Clopidogrel [Plavix] 75 mg PO DAILY 11/08/13 10/25/19 History Pantoprazole Sodium [Protonix] 40 mg PO HS@2300 11/08/13 10/25/19 History Atorvastatin [Lipitor] 40 mg PO HS@2300 04/04/18 10/25/19 History Finasteride [Proscar] 5 mg PO DAILY 04/04/18 10/25/19 History Losartan Potassium [Cozaar] 100 mg PO AC-SUPPER@1800 04/04/18 10/25/19 History ALPRAZolam [Xanax] 0.5 mg PO HS@2300 09/28/18 10/25/19 History Melatonin 10 mg PO HS@2300 09/28/18 10/25/19 History FLUoxetine HCL [PROzac] 20 mg PO DAILY 07/05/19 10/25/19 History Furosemide [Lasix] 20 mg PO DAILY 07/05/19 10/25/19 History Metoprolol Tartrate [Lopressor] 50 mg PO AC-BID@0900,1800 07/05/19 10/25/19 History Nitroglycerin Sl Tabs [Nitrostat] 0.4 mg SUBLINGUAL Q5M PRN 07/05/19 10/25/19 History metFORMIN HCL [Glucophage] 1,000 mg PO BID@1800,2300 07/05/19 10/25/19 History ALPRAZolam [Xanax] 0.25 mg PO AC-SUPPER@1800 10/22/19 10/25/19 History Ascorbic Acid/Ascorbate Sodium 250 mg PO HS@2300 10/25/19 10/25/19 History [Vitamin C 250 mg Tablet Chew] Cholecalciferol (Vitamin D3) 125 mcg PO HS@2300 10/25/19 10/25/19 History [Vitamin D3] Empagliflozin [Jardiance] 25 mg PO DAILY 10/25/19 10/25/19 History Multivit-Min/FA/Lycopen/Lutein 1 tab PO DAILY 10/25/19 10/25/19 History [Centrum Silver Tablet] Allergies Allergy/AdvReac Type Severity Reaction Status Date / Time adhesive Allergy red skin Verified 10/25/19 21:29 bacitracin Allergy Rash/Hives Verified 10/25/19 21:29 [From Neosporin ([id number])] bacitracin zinc Allergy Rash/Hives Verified 10/25/19 21:29 [From Neosporin ([id number])] neomycin sulfate Allergy Rash/Hives Verified 10/25/19 21:29 [From Neosporin ([id number])] polymyxin B Allergy Rash/Hives Verified 10/25/19 21:29 [From Neosporin ([id number])] Surgical - Exam Vital Signs Temp Pulse Resp BP Pulse Ox 97.7 F 62 20 179/83 98 10/25/19 19:38 10/25/19 19:38 10/25/19 19:38 10/25/19 19:38 10/25/19 19:38 Results - Labs 10/25/19 21:01 10/25/19 21:01 Abnormal Lab Results - Last 24 Hours (Table) 10/25/19 10/25/19 10/25/19 Range/Units 21:01 21:01 21:01 RBC 3.93 L (4.30-5.90) m/uL RDW 15.7 H (11.5-15.5) % Sodium 136 L (137-145) mmol/L BUN 27 H (9-20) mg/dL Glucose 136 H (74-99) mg/dL Amylase 276 H (30-110) U/L Diabetes panel 10/25/19 Range/Units 21:01 Sodium 136 L (137-145) mmol/L Potassium 4.2 (3.5-5.1) mmol/L Chloride 103 (98-107) mmol/L Carbon Dioxide 24 (22-30) mmol/L BUN 27 H (9-20) mg/dL Creatinine 1.17 (0.66-1.25) mg/dL Glucose 136 H (74-99) mg/dL Calcium 9.0 (8.4-10.2) mg/dL AST 33 (17-59) U/L ALT 27 (4-49) U/L Alkaline Phosphatase 47 (38-126) U/L Total Protein 6.3 (6.3-8.2) g/dL Albumin 3.9 (3.5-5.0) g/dL Calcium panel 10/25/19 Range/Units 21:01 Calcium 9.0 (8.4-10.2) mg/dL Albumin 3.9 (3.5-5.0) g/dL Pituitary panel 10/25/19 Range/Units 21:01 Sodium 136 L (137-145) mmol/L Potassium 4.2 (3.5-5.1) mmol/L Chloride 103 (98-107) mmol/L Carbon Dioxide 24 (22-30) mmol/L BUN 27 H (9-20) mg/dL Creatinine 1.17 (0.66-1.25) mg/dL Glucose 136 H (74-99) mg/dL Calcium 9.0 (8.4-10.2) mg/dL Adrenal panel 10/25/19 Range/Units 21:01 Sodium 136 L (137-145) mmol/L Potassium 4.2 (3.5-5.1) mmol/L Chloride 103 (98-107) mmol/L Carbon Dioxide 24 (22-30) mmol/L BUN 27 H (9-20) mg/dL Creatinine 1.17 (0.66-1.25) mg/dL Glucose 136 H (74-99) mg/dL Calcium 9.0 (8.4-10.2) mg/dL Total Bilirubin 1.2 (0.2-1.3) mg/dL AST 33 (17-59) U/L ALT 27 (4-49) U/L Alkaline Phosphatase 47 (38-126) U/L Total Protein 6.3 (6.3-8.2) g/dL Albumin 3.9 (3.5-5.0) g/dL
[2019-10-25] MEDS ORDERED: ONDANSETRON 4 MG/2 ML VIAL IVP PRN (23:46)
[2019-10-25] MEDS ORDERED: NALOXONE 0.4 MG/ML 1 ML VIAL IV PRN (23:46)
[2019-10-25] MEDS ORDERED: HYDROmorphone 1 MG/ML 1 ML SYRINGE IVP PRN (23:46)
[2019-10-25] MEDS ORDERED: NITROGLYCERIN SL TABS 0.4 MG TAB SUBLINGUAL PRN (23:51)
[2019-10-26] MEDS: SODIUM CHLORIDE 0.9% 1,000 ML IV SCH ×4 (00:26→19:10)
[2019-10-26 07:48] LABS: Glucose,Whole Blood 118 mg/dL (75-99)
--- NOTE | 2019-10-26 08:54 | US ---
EXAMINATION TYPE: US gallbladder DATE OF EXAM: 10/26/2019 COMPARISON: 10/25/2019 CLINICAL HISTORY: Pancreatitis. abd pain EXAM MEASUREMENTS: Liver Length: 18.4 cm Gallbladder Wall: 0.3 cm CBD: 0.5 cm Right Kidney: 10.2 x 5.7 x 6.0cm Pancreas: limited views appear wnl Liver: difficult to penetrate Gallbladder: wnl Evidence for sonographic Benson's sign: no CBD: wnl Right Kidney: cystic area noted at superior pole = 1.5cm IMPRESSION: 1. Liver is difficult to penetrate correlate for hepatic steatosis versus hepatocellular disease.
[2019-10-26] MEDS ORDERED: PANTOPRAZOLE 40 MG/10 ML VIAL IV SCH (09:00)
[2019-10-26 11:03] LABS: Calcium 8.6 mg/dL (8.4-10.2); Potassium 4.1 mmol/L (3.5-5.1)
[2019-10-26 11:41] LABS: Basophils % (A) 0 %; Eosinophils # (A) 0.2 k/uL (0-0.7); Eosinophils % (A) 2 %; HCT 38.6 % (39.0-53.0); Lymphocytes # (A) 1.7 k/uL (1.0-4.8); Lymphocytes % (A) 25 %; MCH 34.3 pg (25.0-35.0); MCHC 33.8 g/dL (31.0-37.0); MCV 101.6 fL (80.0-100.0); Macrocytosis Slight; Mean Platelet Volume 8.7; Monocytes # (A) 0.6 k/uL (0-1.0); Monocytes % (A) 9 %; Neutrophils # (A) 4.1 k/uL (1.3-7.7); Neutrophils % (A) 60 %; Platelet Count 140 k/uL (150-450); RDW 15.8 % (11.5-15.5); WBC 6.8 k/uL (3.8-10.6)
--- NOTE | 2019-10-26 12:55 | P.PN ---
Subjective Progress Note Date: 10/26/19 CHIEF COMPLAINT: Pancreatitis HISTORY OF PRESENT ILLNESS: Patient examined this morning at the bedside with Dr. Arroyo. Patient reports abdominal pain is tolerable. Denies nausea or vomiting. Vital signs are stable. He's afebrile. Amylase 183. Lipase 1828. PHYSICAL EXAM: VITAL SIGNS: Reviewed GENERAL: Well-developed in no acute distress. HEENT: No sclera icterus. Extraocular movements grossly intact. Moist buccal mucosa. Head is atraumatic, normocephalic. Hears conversational speech. No nasal drainage. NECK: Supple without lymphadenopathy. CHEST: Non-labored respirations and equal bilateral excursions. CARDIOVASCULAR: Regular rate with regular rhythm. Palpable 2+ radial pulses. ABDOMEN: Soft. Nondistended. Nontender. MUSCULOSKELETAL: No clubbing or cyanosis. NEUROLOGIC: No focal or lateralizing signs. Cranial nerves II through XII grossly intact. PSYCH: Appropriate affect. Alert and oriented to person, place and time. SKIN: Well perfused. Good skin turgor. ASSESSMENT: 1. Pancreatitis PLAN: -Monitor amylase/lipase -Begin clear liquid diet -GI on consult. Await evaluation -Stable for discharge from a surgical standpoint when cleared by GI and internal medicine Nurse practitioner note has been reviewed by physician. Signing provider agrees with the documented findings, assessment, and plan of care. Objective - Vital Signs Vital signs: Vital Signs Temp 97.4 F L 10/26/19 04:36 Pulse 56 L 10/26/19 04:36 Resp 18 10/26/19 04:36 BP 130/75 10/26/19 04:36 Pulse Ox 96 10/26/19 04:36 Intake & Output 10/25/19 10/26/19 10/26/19 18:59 06:59 18:59 Intake Total 1040 Balance 1040 Weight 113.716 kg Intake: Intake, IV Titration 1040 Amount Sodium Chloride 0.9% 1, 1040 000 ml @ 130 mls/hr IV . [id number] [facility] Rx#:[id number] Other: Voiding Method Toilet Toilet # Voids 1 - Labs CBC & Chem 7: 10/26/19 10:23 10/26/19 10:23 Labs: Abnormal Lab Results - Last 24 Hours (Table) 10/25/19 10/25/19 10/25/19 Range/Units 21:01 21: 21:01 RBC 3.93 L (4.30-5.90) m/uL Hct (39.0-53.0) % MCV (80.0-100.0) fL RDW 15.7 H (11.5-15.5) % Plt Count (150-450) k/uL Sodium 136 L (137-145) mmol/L BUN 27 H (9-20) mg/dL Glucose 136 H (74-99) mg/dL POC Glucose (mg/dL) (75-99) mg/dL Amylase 276 H (30-110) U/L Lipase (23-300) U/L 10/25/19 10/26/19 10/26/19 Range/Units 21: 07:46 10:23 RBC 3.80 L (4.30-5.90) m/uL Hct 38.6 L (39.0-53.0) % MCV 101.6 H (80.0-100.0) fL RDW 15.8 H (11.5-15.5) % Plt Count 140 L (150-450) k/uL Sodium (137-145) mmol/L BUN (9-20) mg/dL Glucose (74-99) mg/dL POC Glucose (mg/dL) 118 H (75-99) mg/dL Amylase (30-110) U/L Lipase 5891 H (23-300) U/L 10/26/19 Range/Units 10:23 RBC (4.30-5.90) m/uL Hct (39.0-53.0) % MCV (80.0-100.0) fL RDW (11.5-15.5) % Plt Count (150-450) k/uL Sodium (137-145) mmol/L BUN (9-20) mg/dL Glucose 132 H (74-99) mg/dL POC Glucose (mg/dL) (75-99) mg/dL Amylase 183 H (30-110) U/L Lipase 1828 H (23-300) U/L
--- NOTE | 2019-10-26 15:45 | HP ---
HISTORY AND PHYSICAL DATE OF SERVICE: 10/26/2019 CHIEF COMPLAINT: Abdominal pain. HISTORY OF PRESENT ILLNESS: This 74-year-old gentleman with a past medical history of multiple medical problems including history of CAD, history of COPD, diabetes, GERD, hypertension, hyperlipidemia, being followed by Dr. King in the outpatient setting, recently had a colonoscopy on Tuesday. The next day, the patient had abdominal pain which was felt in the left anterior part which radiated to the back and the patient came to [facility] for further evaluation and treatment. The patient had personal history of colon polyp and high risk adenomas and tubular adenoma of the cecum, tubular adenoma of the hepatic flexure, and tubular adenoma of the transverse colon, sigmoid diverticulosis, internal hemorrhoids was noted during the colonoscopy. There is no history of fever, rigors. No loss of consciousness, seizures. The amylase is elevated to 276 and lipase is 5891, indicating acute pancreatitis. The lipase was mildly elevated in June also, up to 546 and amylase not available. PAST MEDICAL HISTORY: History of CAD, COPD, history of diabetes type 2, history of GERD, hypertension, myocardial infarction, history of CAD, CABG, stent. MEDICATIONS: Home medications are: Glucophage 1000 mg p.o. b.i.d., Protonix, Nitrostat, multivitamins, Lopressor, melatonin, Cozaar, Lasix, Proscar, Prozac, Jardiance, Plavix, vitamin D3, Lipitor, Aspirin, Vitamin C 250 mg, Xanax. Doses reviewed. ALLERGIES: ADHESIVES, BACITRACIN, NEOMYCIN and POLYMYXIN. FAMILY HISTORY: History of DVT, colon cancer. SOCIAL HISTORY: Previous history of smoking. Occasional alcohol intake. REVIEW OF SYSTEMS: ENT: No diminished vision. No diminished hearing. CARDIOVASCULAR: No angina or palpitations. RESPIRATION: No cough. GI as mentioned earlier. no dysuria or retention. Nervous system: No numbness/weakness. ALLERGY/IMMUNOLOGY: No asthma or hayfever. MUSCULOSKELETAL as mentioned earlier. HEMATOLOGY/ONCOLOGY: No history of anemia. CONSTITUTIONAL: As mentioned earlier. DERMATOLOGY: Negative. RHEUMATOLOGY negative. PSYCHIATRY as mentioned earlier. PHYSICAL EXAMINATION: Alert and oriented times three. Pulse 60. Blood pressure 161/72, respiration 18, temperature 97.9, pulse ox 97% on room air. HEENT is conjunctivae normal. Oral mucosa moist. NECK is no jugular venous distention. No carotid bruit. No lymph node enlargement. CARDIOVASCULAR: S1, S2 muffled. RESPIRATORY: Breath sounds diminished in the bases. A few scattered rhonchi. No crackles. ABDOMEN: Soft, obese. LEGS: No edema. No swelling. NERVOUS SYSTEM: Higher functions as mentioned earlier. Moves all four extremities. LYMPHATICS: No lymph nodes palpable in the neck, axillae or groin. SKIN: No ulcers. No rashes and no bleeding. JOINTS: No active deforming arthropathy. LABS: WBC 6.8, hemoglobin 13, platelets are 140. Other labs noted. ASSESSMENT: 1. Abdominal pain with acute severe pancreatitis. 2. Recent colonoscopy with a tubular adenoma of the cecum, hepatic flexure and transverse colon. 3. Hyponatremia. 4. Elevated amylase/lipase. 5. Increased MCV. 6. Thrombocytopenia. 7. History of coronary artery disease. 8. History of chronic obstructive pulmonary disease. 9. Gastroesophageal reflux disease. 10.Diabetes Type 2. 11.Hypertension. 12.Hyperlipidemia. 13.History of myocardial infarction. 14.History of cardiomyopathy. 15.History of renal calculus. 16.History of coronary artery disease, coronary artery bypass grafting, stent. 17.History of anxiety. 18.Remote history of nicotine dependence. 19.Obesity with body mass of 39.3. RECOMMENDATIONS AND DISCUSSION: I recommend to continue current medications, symptomatic treatment. Otherwise, gallbladder ultrasound showed no acute abnormality. Otherwise, we will continue to monitor. Repeat labs. Advance the diet. Symptomatic treatment. The patient had MRI of the pancreas. Otherwise, guarded prognosis. Further recommendations follow. We will continue the home medications. MMODL / IJN: [id number] /
[2019-10-26] MEDS: METOPROLOL TARTRATE 50 MG TAB PO SCH (16:14)
[2019-10-26] MEDS: metFORMIN 500 MG TAB PO SCH ×2 (16:15→22:10)
[2019-10-26 16:23] LABS: Appearance,Urine Clear (Clear); Bilirubin,Urine Negative (Negative); Blood,Urine Negative (Negative); Color,Urine Yellow; Glucose,Urine (UA) 4+ (Negative); Ketones,Urine Trace (Negative); Leukocyte Esterase,Urine Negative (Negative); Nitrite,Urine Negative (Negative); Protein,Urine 2+ (Negative); RBC,Urine 1 /hpf (0-5); Specific Gravity,Urine 1.028 (1.001-1.035); Squamous Epithelial Cell,Urine <1 /hpf (0-4); Urobilinogen,Urine <2.0 mg/dL (<2.0); WBC,Urine 2 /hpf (0-5)
[2019-10-26 16:45] VITALS: BMI 39.2
[2019-10-26 17:40] LABS: Glucose,Whole Blood 123 mg/dL (75-99)
[2019-10-26] MEDS ORDERED: LOSARTAN 50 MG TAB PO SCH (18:00)
[2019-10-26] MEDS ORDERED: ALPRAZolam 0.25 MG TAB PO SCH (18:00)
[2019-10-26 20:19] LABS: Glucose,Whole Blood 133 mg/dL (75-99)
[2019-10-26] MEDS ORDERED: ATORVASTATIN 40 MG TAB PO SCH (23:00)
[2019-10-26] MEDS ORDERED: ASCORBIC ACID 500 MG TAB PO SCH (23:00)
[2019-10-26] MEDS ORDERED: CHOLECALCIFEROL 400 UNIT TAB PO SCH (23:00)
[2019-10-26] MEDS ORDERED: MELATONIN 5 MG TABLET PO SCH (23:00)
[2019-10-27 04:56] VITALS: BP 161/82; PULSE 59; RESP 18; TEMP 97.7
[2019-10-27 06:33] LABS: MCH 32.5 pg (25.0-35.0); MCHC 32.4 g/dL (31.0-37.0); MCV 100.1 fL (80.0-100.0); Macrocytosis Slight; Platelet Count 130 k/uL (150-450); RDW 15.8 % (11.5-15.5); WBC 6.2 k/uL (3.8-10.6)
[2019-10-27 06:38] LABS: Albumin 3.2 g/dL (3.5-5.0); Calcium 8.4 mg/dL (8.4-10.2); Potassium 4.3 mmol/L (3.5-5.1); Total Bilirubin 0.9 mg/dL (0.2-1.3); Total Protein 5.3 g/dL (6.3-8.2)
[2019-10-27 06:53] LABS: Eosinophils # (M) 0.12 k/uL (0-0.7); Monocytes # (M) 0.68 k/uL (0-1.0); Neutrophils % (M) 58 %; Nucleated Red Blood Cells 0 /100 WBC (0-0); Total Cells Counted 100
[2019-10-27 06:56] LABS: Glucose,Whole Blood 122 mg/dL (75-99)
[2019-10-27] MEDS ORDERED: PANTOPRAZOLE 40 MG/10 ML VIAL IV SCH (09:00)
[2019-10-27] MEDS ORDERED: MULTIVITAMINS, THERA 1 EACH TAB PO SCH (09:00)
[2019-10-27] MEDS ORDERED: EMPAGLIFLOZIN PO SCH (09:00)
[2019-10-27] MEDS ORDERED: FLUoxetine HCL 20 MG CAP PO SCH (09:00)
[2019-10-27] MEDS ORDERED: FINASTERIDE 5 MG TAB PO SCH (09:00)
[2019-10-27] MEDS ORDERED: FUROSEMIDE 20 MG TAB PO SCH (09:00)
[2019-10-27] MEDS ORDERED: CLOPIDOGREL 75 MG TAB PO SCH (09:00)
[2019-10-27] MEDS: METOPROLOL TARTRATE 50 MG TAB PO SCH (10:02)
--- NOTE | 2019-10-27 10:26 | P.CONS ---
History of Present Illness - Reason for Consult Consult date: 10/26/19 Pancreatitis Requesting physician: Seferino De Jesus - Chief Complaint Abdominal pain - History of Present Illness 74-year-old male with a past medical history significant for hyperlipidemia, hypertension, GERD, diabetes mellitus, COPD and coronary artery disease presented to the hospital due to complaints of abdominal pain. Patient had previously underwent colonoscopy on 10/24/2019. The patient went home and ate a large dinner and subsequently developed pain. He described a sharp severe pain in the epigastric region and periumbilical region with radiation to his back. The patient had been told in the discharge instructions to come back to the hospital if pain developed and presented back to the ER for evaluation. He was found to have elevated amylase at 276 and lipase of 5891. And was admitted for acute pancreatitis. Computed tomography scan of the abdomen showed mild peripancreatic stranding suggestive of mild uncomplicated pancreatitis. Laboratory evaluation significant for total bilirubin 1.2, alkaline phosphatase 47, AST 33 and ALT 27 with WBC 8.8, hemoglobin 13.2, platelet count 155,000. No prior episodes of pancreatitis. No excessive alcohol use. Overall pain is improved at this time. Review of Systems REVIEW OF SYSTEMS: CONSTITUTIONAL: Denies any fevers, chills, weight change or fatigue. CARDIOVASCULAR: Denies any chest pain, palpitations high or low blood pressures RESPIRATORY: Denies any shortness of breath, hemoptysis or cough. GENITOURINARY: No dysuria or hematuria. MUSCULOSKELETAL: No weakness reported. SKIN: Denies any new rashes or lesions, jaundice or pallor. PSYCHIATRIC: Denies any depression or anxiety. NEUROLOGY: Denies headache, denies any new focal deficits. EARS/NOSE/THROAT: No recent hearing change, congestion, nasal discharge or sore throat. EYES: No pain in eyes, discharge or change in vision. GASTROINTESTINAL: As per HPI. 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 COPD, BPH HX OF COLON POLYPS, Last Myocardial Infarction Date:: 2011 History of Any Multi-Drug Resistant Organisms: None Reported Past Surgical History: Coronary Bypass/CABG, Heart Catheterization With Stent, Hernia Repair, Orthopedic Surgery Additional Past Surgical History / Comment(s): CABG X4-2006, STENT X1, UMBILICAL AND INCISIONAL HERNIA, RT SHOULDER ARTHROSCOPY, RT KNEE ARTHROSCOPY, colonoscopies Past Anesthesia/Blood Transfusion Reactions: No Reported Reaction Date of Last Stent Placement:: 2011 Past Psychological History: Anxiety Smoking Status: Former smoker Past Alcohol Use History: None Reported Additional Past Alcohol Use History / Comment(s): quit smoking , SMOKED 1/2 PPD Past Drug Use History: None Reported - Past Family History Mother Family Medical History: Deep Vein Thrombosis (DVT) Brother(s) Family Medical History: Cancer Additional Family Medical History / Comment(s): COLON CANCER Sister(s) Family Medical History: Cancer Additional Family Medical History / Comment(s): LUNG CANCER Medications and Allergies Home Medications Medication Instructions Recorded Confirmed Type Aspirin 162 mg PO HS@2300 11/08/13 10/25/19 History Clopidogrel [Plavix] 75 mg PO DAILY 11/08/13 10/25/19 History Pantoprazole Sodium [Protonix] 40 mg PO HS@2300 11/08/13 10/25/19 History Atorvastatin [Lipitor] 40 mg PO HS@2300 04/04/18 10/25/19 History Finasteride [Proscar] 5 mg PO DAILY 04/04/18 10/25/19 History Losartan Potassium [Cozaar] 100 mg PO AC-SUPPER@1800 04/04/18 10/25/19 History ALPRAZolam [Xanax] 0.5 mg PO HS@2300 09/28/18 10/25/19 History Melatonin 10 mg PO HS@2300 09/28/18 10/25/19 History FLUoxetine HCL [PROzac] 20 mg PO DAILY 07/05/19 10/25/19 History Furosemide [Lasix] 20 mg PO DAILY 07/05/19 10/25/19 History Metoprolol Tartrate [Lopressor] 50 mg PO AC-BID@0900,1800 07/05/19 10/25/19 History Nitroglycerin Sl Tabs [Nitrostat] 0.4 mg SUBLINGUAL Q5M PRN 07/05/19 10/25/19 History metFORMIN HCL [Glucophage] 1,000 mg PO BID@1800,2300 07/05/19 10/25/19 History ALPRAZolam [Xanax] 0.25 mg PO AC-SUPPER@1800 10/22/19 10/25/19 History Ascorbic Acid/Ascorbate Sodium 250 mg PO HS@2300 10/25/19 10/25/19 History [Vitamin C 250 mg Tablet Chew] Cholecalciferol (Vitamin D3) 125 mcg PO HS@2300 10/25/19 10/25/19 History [Vitamin D3] Empagliflozin [Jardiance] 25 mg PO DAILY 10/25/19 10/25/19 History Multivit-Min/FA/Lycopen/Lutein 1 tab PO DAILY 10/25/19 10/25/19 History [Centrum Silver Tablet] Allergies Allergy/AdvReac Type Severity Reaction Status Date / Time adhesive Allergy red skin Verified 10/25/19 21:29 bacitracin Allergy Rash/Hives Verified 10/25/19 21:29 [From Neosporin ([id number])] bacitracin zinc Allergy Rash/Hives Verified 10/25/19 21:29 [From Neosporin ([id number])] neomycin sulfate Allergy Rash/Hives Verified 10/25/19 21:29 [From Neosporin ([id number])] polymyxin B Allergy Rash/Hives Verified 10/25/19 21:29 [From Neosporin ([id number])] Physical Exam Vitals: Vital Signs Temp Pulse Pulse Resp BP BP Pulse Ox 10/26/19 04:36 97.4 F L 56 L 18 130/75 96 10/26/19 00:58 97.5 F L 55 L 18 165/81 94 L 10/26/19 00:18 98.0 F 54 L 16 150/70 96 10/25/19 21:02 55 L 16 175/82 95 10/25/19 19:38 97.7 F 62 20 179/83 98 Intake and Output 10/25/19 10/26/19 10/26/19 22:59 06:59 14:59 Intake Total 1040 Balance 1040 Intake: Intake, IV Titration 1040 Amount Sodium Chloride 0.9% 1, 1040 000 ml @ 130 mls/hr IV . Q7H42M [facility] Rx#:[id number] Other: Voiding Method Toilet # Voids 1 Weight 113.716 kg 113.716 kg On physical examination, patient appears comfortable in no apparent distress. HEAD: Normocephalic, atraumatic. EYES: No scleral icterus. No conjunctival injection. MOUTH: No lesions, tongue midline. NECK: Trachea midline, no gross abnormalities. CHEST: Clear to auscultation with no wheezing or rhonchi appreciated. HEART: Regular rate and rhythm. ABDOMEN: Soft, obese, mildly tender to palpation. Bowel sounds are positive. No organomegaly. No guarding or rigidity. EXTREMITIES: No pedal edema. SKIN: No rashes, no jaundice. NEUROLOGIC: Alert and oriented x3. No focal deficits. Results CBC & Chem 7: 10/27/19 05:37 10/27/19 05:37 Labs: Abnormal Lab Results - Last 24 Hours (Table) 10/25/19 10/25/19 10/25/19 Range/Units 21:01 21:01 21:01 RBC 3.93 L (4.30-5.90) m/uL RDW 15.7 H (11.5-15.5) % Sodium 136 L (137-145) mmol/L BUN 27 H (9-20) mg/dL Glucose 136 H (74-99) mg/dL POC Glucose (mg/dL) (75-99) mg/dL Amylase 276 H (30-110) U/L Lipase (23-300) U/L 10/25/19 10/26/19 Range/Units 21:01 07:46 RBC (4.30-5.90) m/uL RDW (11.5-15.5) % Sodium (137-145) mmol/L BUN (9-20) mg/dL Glucose (74-99) mg/dL POC Glucose (mg/dL) 118 H (75-99) mg/dL Amylase (30-110) U/L Lipase 5891 H (23-300) U/L US - abdomen: report reviewed (Ultrasound of the abdomen with findings of a normal gallbladder without cholelithiasis and a normal CBD with steatosis of the liver.) Assessment and Plan (1) Acute pancreatitis Narrative/Plan: 74-year-old male presenting to the hospital due to complaints of abdominal pain and found to have acute uncomplicated pancreatitis with mild stranding of the pancreas on computed tomography scan and ultrasound of the abdomen showing steatosis of the liver with a normal CBD and gallbladder. Amylase elevated at 276 and lipase of 5891. Liver enzymes within normal limits as total bilirubin f ound to be 1.2, alkaline phosphatase 47, AST 33 and ALT 27. Current Visit: Yes Status: Acute Code(s): K85.90 - ACUTE PANCREATITIS WITHOUT NECROSIS OR INFECTION, UNSP SNOMED Code(s): 171161062 (2) Abdominal pain Current Visit: Yes Status: Acute Code(s): R10.9 - UNSPECIFIED ABDOMINAL PAIN SNOMED Code(s): 32653121 Plan: Supportive care Okay to advance to clear liquid diet Pain control Continue IV fluid hydration Would recommend MRI of the abdomen or endoscopic ultrasound in 6-8 weeks for evaluation of the pancreas and to rule out cyst or mass Extensive discussion with the patient and his and if decision is for discharge would recommend gently increasing diets and presenting back if patient has any worsening abdominal pain Thank you for allowing us to dissipate in the care of the patient
[2019-10-27 11:29] LABS: Glucose,Whole Blood 152 mg/dL (75-99)
--- NOTE | 2019-10-27 13:17 | P.PN ---
Subjective Progress Note Date: 10/27/19 Patient seen and evaluated. Labs chemistries improved from pancreatitis. Abdominal pain resolved. Surgical clear. Discharge Objective - Vital Signs Vital signs: Vital Signs Temp 97.7 F 10/27/19 04:55 Pulse 59 L 10/27/19 08:00 Resp 18 10/27/19 08:00 BP 161/82 10/27/19 04:55 Pulse Ox 97 10/27/19 04:55 Intake & Output 10/26/19 10/27/19 10/27/19 18:59 06:59 18:59 Intake Total 740 Balance 740 Weight 113.716 kg Intake: Intake, IV Titration 450 Amount Sodium Chloride 0.9% 1, 450 000 ml @ 50 mls/hr IV . Q20H [facility] Rx#:[id number] Oral 290 Other: Voiding Method Toilet Toilet Toilet # Voids 3 2 - Labs CBC & Chem 7: 10/27/19 05:37 10/27/19 05:37 Labs: Abnormal Lab Results - Last 24 Hours (Table) 10/26/19 10/26/19 10/26/19 Range/Units 16:15 17:17 20:17 RBC (4.30-5.90) m/uL Hgb (13.0-17.5) gm/dL Hct (39.0-53.0) % MCV (80.0-100.0) fL RDW (11.5-15.5) % Plt Count (150-450) k/uL Chloride (98-107) mmol/L Glucose (74-99) mg/dL POC Glucose (mg/dL) 123 H 133 H (75-99) mg/dL Total Protein (6.3-8.2) g/dL Albumin (3.5-5.0) g/dL Urine Protein 2+ H (Negative) Urine Glucose (UA) 4+ H (Negative) Urine Ketones Trace H (Negative) 10/27/19 10/27/19 10/27/19 Range/Units 05:37 05:37 06:54 RBC 3.70 L (4.30-5.90) m/uL Hgb 12.0 L (13.0-17.5) gm/dL Hct 37.0 L (39.0-53.0) % MCV 100.1 H (80.0-100.0) fL RDW 15.8 H (11.5-15.5) % Plt Count 130 L (150-450) k/uL Chloride 108 H (98-107) mmol/L Glucose 113 H (74-99) mg/dL POC Glucose (mg/dL) 122 H (75-99) mg/dL Total Protein 5.3 L (6.3-8.2) g/dL Albumin 3.2 L (3.5-5.0) g/dL Urine Protein (Negative) Urine Glucose (UA) (Negative) Urine Ketones (Negative) 10/27/19 Range/Units 11:27 RBC (4.30-5.90) m/uL Hgb (13.0-17.5) gm/dL Hct (39.0-53.0) % MCV (80.0-100.0) fL RDW (11.5-15.5) % Plt Count (150-450) k/uL Chloride (98-107) mmol/L Glucose (74-99) mg/dL POC Glucose (mg/dL) 152 H (75-99) mg/dL Total Protein (6.3-8.2) g/dL Albumin (3.5-5.0) g/dL Urine Protein (Negative) Urine Glucose (UA) (Negative) Urine Ketones (Negative) Microbiology - Last 24 Hours (Table) 10/25/19 20:21 Blood Culture - Preliminary Blood No Growth after 24 hours
--- NOTE | 2019-10-28 | P.PN ---
Subjective Progress Note Date: 10/27/19 Principal diagnosis: Pancreatitis Patient is seen lying in bed denying any abdominal pain. Tolerating diet. Plan is for discharge today. Objective - Vital Signs Vital signs: Vital Signs Temp 97.7 F 10/27/19 04:55 Pulse 59 L 10/27/19 04:55 Resp 18 10/27/19 04:55 BP 161/82 10/27/19 04:55 Pulse Ox 97 10/27/19 04:55 Intake & Output 10/26/19 10/27/19 10/27/19 18:59 06:59 18:59 Intake Total 740 Balance 740 Weight 113.716 kg Intake: Intake, IV Titration 450 Amount Sodium Chloride 0.9% 1, 450 000 ml @ 50 mls/hr IV . Q20H [facility] Rx#:[id number] Oral 290 Other: Voiding Method Toilet Toilet # Voids 3 2 - Exam On physical examination, patient appears comfortable in no apparent distress. HEAD: Normocephalic, atraumatic. EYES: No scleral icterus. No conjunctival injection. MOUTH: No lesions, tongue midline. NECK: Trachea midline, no gross abnormalities. ABDOMEN: Soft, obese. Bowel sounds are positive. No organomegaly. No guarding or rigidity. EXTREMITIES: No pedal edema. SKIN: No rashes, no jaundice. NEUROLOGIC: Alert and oriented x3. No focal deficits. - Labs CBC & Chem 7: 10/27/19 05:37 10/27/19 05:37 Labs: Abnormal Lab Results - Last 24 Hours (Table) 10/26/19 10/26/19 10/26/19 Range/Units 10:23 16:15 17:17 RBC 3.80 L (4.30-5.90) m/uL Hgb (13.0-17.5) gm/dL Hct 38.6 L (39.0-53.0) % MCV 101.6 H (80.0-100.0) fL RDW 15.8 H (11.5-15.5) % Plt Count 140 L (150-450) k/uL Chloride (98-107) mmol/L Glucose (74-99) mg/dL POC Glucose (mg/dL) 123 H (75-99) mg/dL Total Protein (6.3-8.2) g/dL Albumin (3.5-5.0) g/dL Urine Protein 2+ H (Negative) Urine Glucose (UA) 4+ H (Negative) Urine Ketones Trace H (Negative) 10/26/19 10/27/19 10/27/19 Range/Units 20:17 05:37 05:37 RBC 3.70 L (4.30-5.90) m/uL Hgb 12.0 L (13.0-17.5) gm/dL Hct 37.0 L (39.0-53.0) % MCV 100.1 H (80.0-100.0) fL RDW 15.8 H (11.5-15.5) % Plt Count 130 L (150-450) k/uL Chloride 108 H (98-107) mmol/L Glucose 113 H (74-99) mg/dL POC Glucose (mg/dL) 133 H (75-99) mg/dL Total Protein 5.3 L (6.3-8.2) g/dL Albumin 3.2 L (3.5-5.0) g/dL Urine Protein (Negative) Urine Glucose (UA) (Negative) Urine Ketones (Negative) 10/27/19 Range/Units 06:54 RBC (4.30-5.90) m/uL Hgb (13.0-17.5) gm/dL Hct (39.0-53.0) % MCV (80.0-100.0) fL RDW (11.5-15.5) % Plt Count (150-450) k/uL Chloride (98-107) mmol/L Glucose (74-99) mg/dL POC Glucose (mg/dL) 122 H (75-99) mg/dL Total Protein (6.3-8.2) g/dL Albumin (3.5-5.0) g/dL Urine Protein (Negative) Urine Glucose (UA) (Negative) Urine Ketones (Negative) Microbiology - Last 24 Hours (Table) 10/25/19 20:21 Blood Culture - Preliminary Blood No Growth after 24 hours Assessment and Plan (1) Acute pancreatitis Narrative/Plan: 74-year-old male presenting to the hospital due to complaints of abdominal pain and found to have acute uncomplicated pancreatitis with mild stranding of the pancreas on computed tomography scan and ultrasound of the abdomen showing steatosis of the liver with a normal CBD and gallbladder. Amylase elevated at 276 and lipase of 5891. Liver enzymes within normal limits as total bilirubin found to be 1.2, alkaline phosphatase 47, AST 33 and ALT 27. Status: Acute Code(s): K85.90 - ACUTE PANCREATITIS WITHOUT NECROSIS OR INFECT ION, UNSP SNOMED Code(s): 996350387 (2) Abdominal pain Status: Acute Code(s): R10.9 - UNSPECIFIED ABDOMINAL PAIN SNOMED Code(s): 74412691 Plan: Supportive care Okay for diet Pain control Continue IV fluid hydration Would recommend MRI of the abdomen or endoscopic ultrasound in 6-8 weeks for evaluation of the pancreas and to rule out cyst or mass Extensive discussion with the patient and his and if decision is for discharge would recommend gently increasing diets and presenting back if patient has any worsening abdominal pain Thank you for allowing us to participate in the care of the patient
[2019-10-28] MEDS ORDERED: PANTOPRAZOLE 40 MG TABLET PO SCH (09:00)
--- NOTE | 2019-10-28 09:46 | DS ---
DISCHARGE SUMMARY DATE OF SERVICE: 10/28/2019 FINAL DIAGNOSIS: 1. Abdominal pain with acute severe pancreatitis. 2. Recent colonoscopy with tubular adenoma of the hepatic flexure and transverse colon. 3. Hyponatremia. 4. Elevated amylase and lipase, improved. 5. Increased MCV. 6. Thrombocytopenia. 7. History of coronary artery disease. 8. Chronic obstructive pulmonary disease. 9. Gastroesophageal reflux disease. 10.Diabetes mellitus type 2. 11.Hypertension. 12.Hyperlipidemia. 13.Myocardial infarction. 14.History of cardiomyopathy. 15.History of renal calculous. 16.History of coronary artery disease with coronary artery bypass graft and stent. 17.History of anxiety. 18.History of nicotine dependence. 19.Obesity with body mass index of 39.3. DISCHARGE DISPOSITION: The patient discharged in stable condition. Guarded prognosis. Recommend close outpatient followup. Total time taken 35 minutes. HISTORY OF PRESENT ILLNESS: This is a 74-year-old gentleman with a past medical history of multiple medical problems who was admitted with abdominal pain. The patient also had recent colonoscopy. Patient was monitored closely. Amylase levels were elevated. Diet was slowly advanced. The patient improved. Gastroenterology was consulted and amylase and lipase levels were monitored and became normal at this time. Sugars elevated. PHYSICAL EXAM: VITAL SIGNS: Stable. CARDIOVASCULAR: S1, S2, muffled. ABDOMEN: Soft. NERVOUS SYSTEM: No focal deficits. Patient also had an abdominal CT scan. Magnetic resonance sinus imaging of the pancreas is recommended. DISCHARGE INSTRUCTIONS/MEDICATION: Diet is cardiac. Activity limited until followup. Follow up with Dr. King's as advised. Follow up with Dr. Amador of gastroenterology as recommended. MEDICATIONS ARE: 1. Aspirin 160 mg p.o. q.h.s. 2. Multivitamins one daily. 3. Cozaar 100 mg q.h.s. 4. Glucophage 1000 mg p.o. b.i.d. 5. Jardiance 25 mg daily. 6. Lasix 20 mg daily. 7. Lipitor 40 mg q.h.s. 8. Lopressor 50 mg b.i.d. 9. Melatonin 10 mg q.h.s. 10.Nitrostat 0.4 sublingual p.r.n. 11.Plavix 75 mg p.o. daily. 12.Proscar 5 mg p.o. daily. 13.Protonix 40 mg q.h.s. 14.Prozac 20 mg p.o. daily. 15.Vitamin D3 125 mg q.h.s. 16.Xanax 0.5 q.h.s. and 0.25 mg t.i.d. p.r.n. As mentioned earlier, further imaging of the pancreas and continue to follow up with Dr. Amador discussed with the patient who understands and agrees. MMDAYAL / IJN: [id number] /
== END 2019-10-27 12:39 | disposition home or self-care (01) | DRG 439 ==
LOC: EC 19:30 → 5NMEDONC 23:52
PROVIDERS: ADMIT Internal Medicine; ATTEND Internal Medicine
DX: K85.90 Acute pancreatitis without necrosis or infection, unspecified (principal); I42.9 Cardiomyopathy, unspecified; E87.1 Hypo-osmolality and hyponatremia; I25.10 Atherosclerotic heart disease of native coronary artery without angina pectoris; I10 Essential (primary) hypertension; E11.9 Type 2 diabetes mellitus without complications; E66.9 Obesity, unspecified; N40.0 Benign prostatic hyperplasia without lower urinary tract symptoms; K21.9 Gastro-esophageal reflux disease without esophagitis; E78.5 Hyperlipidemia, unspecified; M19.90 Unspecified osteoarthritis, unspecified site; F41.9 Anxiety disorder, unspecified; K57.30 Diverticulosis of large intestine without perforation or abscess without bleeding; D69.6 Thrombocytopenia, unspecified; J44.9 Chronic obstructive pulmonary disease, unspecified; Z11.59 Encounter for screening for other viral diseases; Z79.84 Long term (current) use of oral hypoglycemic drugs; Z79.82 Long term (current) use of aspirin; Z79.899 Other long term (current) drug therapy; Z79.02 Long term (current) use of antithrombotics/antiplatelets; I25.2 Old myocardial infarction; Z68.39 Body mass index [BMI] 39.0-39.9, adult; Z88.3 Allergy status to other anti-infective agents; Z88.8 Allergy status to other drugs, medicaments and biological substances; Z87.19 Personal history of other diseases of the digestive system; Z85.828 Personal history of other malignant neoplasm of skin; Z86.010 Personal history of colon polyps; Z95.1 Presence of aortocoronary bypass graft; Z95.5 Presence of coronary angioplasty implant and graft; Z98.890 Other specified postprocedural states; Z87.891 Personal history of nicotine dependence; Z80.1 Family history of malignant neoplasm of trachea, bronchus and lung; Z80.0 Family history of malignant neoplasm of digestive organs; Z82.49 Family history of ischemic heart disease and other diseases of the circulatory system; Z87.442 Personal history of urinary calculi
CPT/HCPCS: 36415; 74177; 76705; 80048; 80053; 81001; 82150; 83690; 85025; 87040; 96365; 96366; 96375; 99285

== ENCOUNTER → 2020-04-22 | Outpatient (CLI) | payer MEDICARE, BC ==
--- NOTE | 2020-04-22 16:47 | US ---
EXAMINATION TYPE: US kidneys/renal and bladder DATE OF EXAM: 04/22/2020 COMPARISON: CT 10/25/2019 CLINICAL HISTORY: R80.9 Proteinuria. EXAM MEASUREMENTS: Right Kidney: 11.9 x 6.4 x 6.1 cm Left Kidney: 14.5 x 9.1 x 8.4 cm Right Kidney: cyst upper pole measures 1.6 x 1.6 x 1.5. Left Kidney: Large midpole cyst measures 6.6 x 5.7 x 6.4 cm and exophytic upper pole cyst measures 2. 4 x 2.3 x 2.1 cm. Bladder: wnl Bilateral Jets seen: Yes IMPRESSION: 1. Bilateral renal cysts appear simple.
== END | disposition home or self-care (01) ==
LOC: RADUSWWP 15:33
PROVIDERS: ATTEND Family Medicine
DX: N28.1 Cyst of kidney, acquired (principal); R80.9 Proteinuria, unspecified
CPT/HCPCS: 76770

== ENCOUNTER 2020-05-22 18:12 | Emergency (ER) | payer MEDICARE, BC ==
[2020-05-22 18:24] VITALS: TEMP 98.6
--- NOTE | 2020-05-22 18:57 | ED ---
General Adult HPI - General Chief complaint: Recheck/Abnormal Lab/Rx Stated complaint: low magnesium Time Seen by Provider: 05/22/20 18:31 Source: patient, RN notes reviewed, old records reviewed Mode of arrival: ambulatory Limitations: no limitations - History of Present Illness Initial comments: 75-year-old male presenting for evaluation of abnormal outpatient lab. Patient was told to present to the emergency department for these in transfusion. His magnesium was 0.9 on outpatient testing. 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 Patient denies any chest pain or palpitations. He states he has had some chronic diarrhea. He states that he is scheduled to follow up with nephrology for proteinuria. Patient states he feels pretty much normal without complaints. - Related Data Home Medications Medication Instructions Recorded Confirmed Aspirin 162 mg PO HS@2300 11/08/13 10/25/19 Clopidogrel [Plavix] 75 mg PO DAILY 11/08/13 10/25/19 Pantoprazole Sodium [Protonix] 40 mg PO HS@2300 11/08/13 10/25/19 Atorvastatin [Lipitor] 40 mg PO HS@2300 04/04/18 10/25/19 Finasteride [Proscar] 5 mg PO DAILY 04/04/18 10/25/19 Losartan Potassium [Cozaar] 100 mg PO AC-SUPPER@1800 04/04/18 10/25/19 ALPRAZolam [Xanax] 0.5 mg PO HS@2300 09/28/18 10/25/19 Melatonin 10 mg PO HS@2300 09/28/18 10/25/19 FLUoxetine HCL [PROzac] 20 mg PO DAILY 07/05/19 10/25/19 Furosemide [Lasix] 20 mg PO DAILY 07/05/19 10/25/19 Metoprolol Tartrate [Lopressor] 50 mg PO AC-BID@0900,1800 07/05/19 10/25/19 Nitroglycerin Sl Tabs [Nitrostat] 0.4 mg SUBLINGUAL Q5M PRN 07/05/19 10/25/19 metFORMIN HCL [Glucophage] 1,000 mg PO BID@1800,2300 07/05/19 10/25/19 ALPRAZolam [Xanax] 0.25 mg PO AC-SUPPER@1800 10/22/19 10/25/19 Ascorbic Acid [Vitamin C] 250 mg PO HS@2300 10/25/19 10/25/19 Cholecalciferol (Vitamin D3) 125 mcg PO HS@2300 10/25/19 10/25/19 [Vitamin D3 (5000 Iu)] Empagliflozin [Jardiance] 25 mg PO DAILY 10/25/19 10/25/19 Multivit-Min/FA/Lycopen/Lutein 1 tab PO DAILY 10/25/19 10/25/19 [Centrum Silver Tablet] Previous Rx's Medication Instructions Recorded Pantoprazole Sodium [Protonix] 40 mg PO DAILY #30 tablet. 10/27/19 Magnesium Oxide 400 mg PO DAILY 30 Days #30 tablet 05/22/20 Allergies Allergy/AdvReac Type Severity Reaction Status Date / Time adhesive Allergy red skin Verified 10/25/19 21:29 bacitracin Allergy Rash/Hives Verified 10/25/19 21:29 [From Neosporin ([id number])] bacitracin zinc Allergy Rash/Hives Verified 10/25/19 21:29 [From Neosporin ([id number])] neomycin sulfate Allergy Rash/Hives Verified 10/25/19 21:29 [From Neosporin ([id number])] polymyxin B Allergy Rash/Hives Verified 10/25/19 21:29 [From Neosporin ([id number])] Review of Systems ROS Statement: Those systems with pertinent positive or pertinent negative responses have been documented in the HPI. ROS Other: All systems not noted in ROS Statement are negative. 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 COPD, BPH HX OF COLON POLYPS, Last Myocardial Infarction Date:: 2011 History of Any Multi-Drug Resistant Organisms: None Reported Past Surgical History: Coronary Bypass/CABG, Heart Catheterization With Stent, Hernia Repair, Orthopedic Surgery Additional Past Surgical History / Comment(s): CABG X4-2006, STENT X1, UMBILICAL AND INCISIONAL HERNIA, RT SHOULDER ARTHROSCOPY, RT KNEE ARTHROSCOPY, colonoscopies Past Anesthesia/Blood Transfusion Reactions: No Reported Reaction Date of Last Stent Placement:: 2011 Past Psychological History: Anxiety Smoking Status: Former smoker Past Alcohol Use History: None Reported Past Drug Use History: None Reported - Past Family History Mother Family Medical History: Deep Vein Thrombosis (DVT) Brother(s) Family Medical History: Cancer Additional Family Medical History / Comment(s): COLON CANCER Sister(s) Family Medical History: Cancer Additional Family Medical History / Comment(s): LUNG CANCER General Exam Limitations: no limitations General appearance: alert, in no apparent distress Head exam: Present: atraumatic, normocephalic Eye exam: Present: normal appearance ENT exam: Present: normal exam Neck exam: Present: normal inspection. Absent: tenderness Respiratory exam: Present: normal lung sounds bilaterally. Absent: respiratory distress, wheezes Cardiovascular Exam: Present: regular rate, normal rhythm GI/Abdominal exam: Present: soft. Absent: distended, tenderness, guarding Extremities exam: Present: normal inspection, normal capillary refill. Absent: pedal edema, calf tenderness Neurological exam: Present: alert, oriented X3, CN II-XII intact. Absent: motor sensory deficit Psychiatric exam: Present: normal affect, normal mood Skin exam: Present: warm, dry, intact. Absent: cyanosis, diaphoretic Course Vital Signs 05/22/20 18:22 Temperature 98.6 F Pulse Rate 61 Respiratory 18 Rate O2 Sat by Pulse 98 Oximetry EKG Findings - EKG Comments: EKG Findings:: EKG: Normal sinus rhythm, rate 61, SC interval 178, QRS duration 100, QTC 442, no ST segment elevation. Medical Decision Making - Medical Decision Making 75-year-old male without complaints presenting for abnormal outpatient lab and need for magnesium replacement. Magnesium is repeated, this is 1.2, replaced with IV magnesium in the emergency department. His additional laboratory testing are baseline for this patient, mild anemia which is stable, chronic kidney disease also stable. Patient has no complaints, EKG showing sinus rhythm. She will be started on magnesium, he has a appointment with his telegraph office manager - Lab Data Result diagrams: 05/22/20 19:03 05/22/20 19:03 Lab Results 05/22/20 05/22/20 Range/Units 19:03 19:03 WBC 7.0 (3.8-10.6) k/uL RBC 3.51 L (4.30-5.90) m/uL Hgb 12.0 L (13.0-17.5) gm/dL Hct 34.0 L (39.0-53.0) % MCV 96.9 (80.0-100.0) fL MCH 34.2 (25.0-35.0) pg MCHC 35.3 (31.0-37.0) g/dL RDW 16.4 H (11.5-15.5) % Plt Count 181 (150-450) k/uL MPV 7.8 Neutrophils % 51 % Lymphocytes % 33 % Monocytes % 9 % Eosinophils % 3 % Basophils % 1 % Neutrophils # 3.6 (1.3-7.7) k/uL Lymphocytes # 2.3 (1.0-4.8) k/uL Monocytes # 0.6 (0-1.0) k/uL Eosinophils # 0.2 (0-0.7) k/uL Basophils # 0.1 (0-0.2) k/uL Anisocytosis Slight Sodium 137 (137-145) mmol/L Potassium 4.5 (3.5-5.1) mmol/L Chloride 106 (98-107) mmol/L Carbon Dioxide 24 (22-30) mmol/L Anion Gap 7 mmol/L BUN 28 H (9-20) mg/dL Creatinine 1.37 H (0.66-1.25) mg/dL Est GFR (CKD-EPI)AfAm 58 (>60 ml/min/1.73 sqM) Est GFR (CKD-EPI)NonAf 51 (>60 ml/min/1.73 sqM) Glucose 105 H (74-99) mg/dL Calcium 8.4 (8.4-10.2) mg/dL Magnesium 1.2 L (1.6-2.3) mg/dL Disposition Clinical Impression: Hypomagnesemia Disposition: HOME SELF-CARE Condition: Fair Instructions (If sedation given, give patient instructions): Hypomagnesemia (ED) Prescriptions: Magnesium Oxide 400 mg PO DAILY 30 Days #30 tablet Is patient prescribed a controlled substance at d/c from ED?: No Referrals: Kris King MD [Primary Care Provider] - 1-2 days Time of Disposition: 19:57
[2020-05-22 19:21] LABS: Anisocytosis Slight; Basophils # (A) 0.1 k/uL (0-0.2); Basophils % (A) 1 %; Eosinophils # (A) 0.2 k/uL (0-0.7); Eosinophils % (A) 3 %; Lymphocytes # (A) 2.3 k/uL (1.0-4.8); Lymphocytes % (A) 33 %; MCH 34.2 pg (25.0-35.0); MCHC 35.3 g/dL (31.0-37.0); MCV 96.9 fL (80.0-100.0); Mean Platelet Volume 7.8; Monocytes # (A) 0.6 k/uL (0-1.0); Monocytes % (A) 9 %; Neutrophils # (A) 3.6 k/uL (1.3-7.7); Neutrophils % (A) 51 %; Platelet Count 181 k/uL (150-450); RBC 3.51 m/uL (4.30-5.90); RDW 16.4 % (11.5-15.5)
[2020-05-22 19:33] LABS: Calcium 8.4 mg/dL (8.4-10.2); Magnesium 1.2 mg/dL (1.6-2.3); Potassium 4.5 mmol/L (3.5-5.1)
[2020-05-22] MEDS ORDERED: MAGNESIUM SULFATE-D5W PMX 1 GM in DEXTROSE/WATER 1 100ML.BAG IVPB ONE (19:50)
[2020-05-22 20:03] VITALS: BP 158/81; PULSE 65; RESP 16
== END 2020-05-22 21:00 | disposition home or self-care (01) ==
LOC: EC 18:12
DX: E83.42 Hypomagnesemia (principal); E11.22 Type 2 diabetes mellitus with diabetic chronic kidney disease; I13.10 Hypertensive heart and chronic kidney disease without heart failure, with stage 1 through stage 4 chronic kidney disease, or unspecified chronic kidney disease; N18.9 Chronic kidney disease, unspecified; D63.1 Anemia in chronic kidney disease; I42.9 Cardiomyopathy, unspecified; I25.119 Atherosclerotic heart disease of native coronary artery with unspecified angina pectoris; I25.2 Old myocardial infarction; J44.9 Chronic obstructive pulmonary disease, unspecified; F41.9 Anxiety disorder, unspecified; E78.5 Hyperlipidemia, unspecified; K21.9 Gastro-esophageal reflux disease without esophagitis; Z79.82 Long term (current) use of aspirin; Z79.02 Long term (current) use of antithrombotics/antiplatelets; Z79.899 Other long term (current) drug therapy; Z79.84 Long term (current) use of oral hypoglycemic drugs; Z91.048 Other nonmedicinal substance allergy status; Z88.1 Allergy status to other antibiotic agents; Z88.8 Allergy status to other drugs, medicaments and biological substances; Z95.1 Presence of aortocoronary bypass graft; Z95.5 Presence of coronary angioplasty implant and graft; Z85.828 Personal history of other malignant neoplasm of skin; Z87.891 Personal history of nicotine dependence; Z87.19 Personal history of other diseases of the digestive system
CPT/HCPCS: 36415; 93005; 80048; 83735; 85025; 99284; 96365; J3475

== ENCOUNTER → 2020-07-14 | Outpatient (CLI) | payer MEDICARE, BC ==
--- NOTE | 2020-07-14 14:13 | US ---
EXAMINATION TYPE: US carotid duplex BILAT DATE OF EXAM: 07/14/2020 COMPARISON: NONE CLINICAL HISTORY: R42 dizziness and giddiness. Pt states dizziness EXAM MEASUREMENTS: RIGHT: Peak Systolic Velocity (PSV) cm/sec ----- Right CCA: 58.1 ----- Right ICA: 81.7 ----- Right ECA: 71.2 ICA/CCA ratio: 1.4 RIGHT: End Diastole cm/sec ----- Right CCA: 13.6 ----- Right ICA: 30.2 ----- Right ECA: 0.0 LEFT: Peak Systolic Velocity (PSV) cm/sec ----- Left CCA: 73.2 ----- Left ICA: 84.2 ----- Left ECA: 76.5 ICA/CCA ratio: 1.2 LEFT: End Diastole cm/sec ----- Left CCA: 16.0 ----- Left ICA: 27.0 ----- Left ECA: 0.0 VERTEBRALS (direction of flow): Right Vertebral: Antegrade Left Vertebral: Antegrade Rhythm: Normal No significant stenosis seen Incidental finding thyroid nodules IMPRESSION: No evidence for hemodynamically significant stenosis. Criteria for Assigning % of Stenosis / Diameter reduction (Estimation based on the indirect measurements of the internal carotid artery velocities (ICA PSV). 1. Normal (no stenosis)=ICA PSV < 125 cm/s: ratio < 2.0: ICA EDV<40 cm/s. 2. Less than 50% stenosis=ICA PSV < 125 cm/s: ratio < 2.0: ICA EDV<40 cm/s. 3. 50 to 69% stenosis=ICA PSV of 125 to 230 cm/s: ration 2.0 ? 4.0: ICA EDV 40-100 cm/s. 4. Greater than 70% stenosis to near occlusion= ICA PSV > 230 cm/s: ratio > 4.0: ICA EDV > 100 cm/s. 5. Near occlusion= ICA PSV velocities may be low or undetectable: variable ratio and ICA EDV. 6. Total occlusion=unable to detect flow.
== END ==
LOC: RADUSWWP 13:45
PROVIDERS: ATTEND Family Medicine
DX: R42 Dizziness and giddiness (principal)
CPT/HCPCS: 93880

== ENCOUNTER → 2020-08-12 | Outpatient (CLI) | payer MEDICARE, BC ==
--- NOTE | 2020-08-12 17:43 | US ---
EXAMINATION TYPE: US thyroid st tissue head/neck DATE OF EXAM: 08/12/2020 COMPARISON: Carotid ultrasound 07/14/2020 CLINICAL HISTORY: 75-year-old male E04.1 Nontoxic single thyroid nodule. TECHNIQUE: Multiple sonographic images of the thyroid gland are obtained. FINDINGS: GLAND SIZE: Right Lobe: 3.9 x 1.6 x 2.0 cm Overall Parenchyma: homogenous Left Lobe: 5.3 x 2.4 x 2.4 cm Overall Parenchyma: homogeneous Isthmus Thickness: 0.5 cm NODULES RIGHT: # of nodules measured on right: 1 1. 1.3 X 0.8 x 1.0 cm, mid, solid or almost completely solid, hypoechoic nodule, which is wider nazia n tall, with smooth margins, without echogenic foci. Prior size: Prior Carotid scan= 0.9 cm LEFT: # of nodules measured on left: 1 1. 3.1 X 2.2 x 2.4 cm, mid, solid or almost completely solid, hypoechoic nodule, which is wider nazia n tall, with smooth margins, with echogenic foci. Prior size: Prior Carotid scan= 2.7 cm [employer] Operator notes: Bilateral neck scanned, no evidence of lymphadenopathy. Nodules on either side of thyroid. IMPRESSION: 1. A 3.1 cm, TR5 nodule on the left. FNA is advised. 2. A 1.3 cm TR4 nodule on the right. Follow-up is recommended. FNA to be performed if the nodule laura ches 1.5 cm.
== END | disposition home or self-care (01) ==
LOC: RADUSWWP 15:35
PROVIDERS: ATTEND Family Medicine
DX: E04.2 Nontoxic multinodular goiter (principal)
CPT/HCPCS: 76536

== ENCOUNTER 2020-10-03 09:13 | Day surgery (SDC) | payer MEDICARE, BC ==
[2020-10-03 10:08] VITALS: TEMP 98.6
--- NOTE | 2020-10-03 11:34 | US ---
ULTRASOUND GUIDED FNA THYROID BIOPSY: CLINICAL HISTORY: Request for right and left thyroid nodule FNA FINDINGS: The procedure was explained to the patient. The risks, complications, benefits and alternatives were discussed and any questions were answered. Informed consent was obtained. Patient was placed supin e on the ultrasound table and prepped and draped in the usual sterile fashion. Utilizing a 25 gauge needle, five passes were made into the requested right and requested left thyroid nodule. Patient was stable throughout the procedure. Pathology is pending. All elements of maximal barrier technique were utilized. IMPRESSION: 1. Successful ultrasound guided FNA thyroid biopsy.
[2020-10-03 12:32] VITALS: BP 114/56; PULSE 66; RESP 16
== END 2020-10-03 11:45 | disposition home or self-care (01) ==
LOC: RADPROMAIN 09:13
PROVIDERS: ATTEND Otolaryngology
DX: E04.1 Nontoxic single thyroid nodule (principal)
CPT/HCPCS: 10005; 10006; 88173; 88305

== ENCOUNTER → 2020-10-21 | Outpatient (CLI) | payer MEDICARE, BC ==
[2020-10-21 09:19] LABS: Anisocytosis Slight; Basophils # (A) 0.1 k/uL (0-0.2); Basophils % (A) 1 %; Eosinophils # (A) 0.2 k/uL (0-0.7); Eosinophils % (A) 3 %; HCT 31.1 % (39.0-53.0); HGB 10.8 gm/dL (13.0-17.5); Lymphocytes # (A) 2.6 k/uL (1.0-4.8); Lymphocytes % (A) 34 %; MCH 35.1 pg (25.0-35.0); MCHC 34.6 g/dL (31.0-37.0); MCV 101.3 fL (80.0-100.0); Macrocytosis Slight; Mean Platelet Volume 7.9; Monocytes # (A) 0.8 k/uL (0-1.0); Monocytes % (A) 10 %; Neutrophils # (A) 3.7 k/uL (1.3-7.7); Neutrophils % (A) 49 %; Platelet Count 160 k/uL (150-450); RBC 3.07 m/uL (4.30-5.90); RDW 17.3 % (11.5-15.5); WBC 7.5 k/uL (3.8-10.6)
[2020-10-21 09:34] LABS: INR 0.9 (<1.2); Prothrombin Time 9.8 sec (9.0-12.0)
[2020-10-21 09:38] LABS: Potassium 5.5 mmol/L (3.5-5.1)
== END | disposition home or self-care (01) ==
LOC: LABWHC1 08:17
PROVIDERS: ATTEND Internal Medicine
DX: N18.31 Chronic kidney disease, stage 3a (principal)
CPT/HCPCS: 36415; 80051; 82565; 84520; 85025; 85610; 85730; 86850; 86900; 86901

== ENCOUNTER → 2020-10-23 | Day surgery (SDC) | payer MEDICARE, BC ==
[~2020-10-23] MED LIST changes: +DESMOPRESSIN ACETATE 36 MCG in SODIUM CHLORIDE 0.9% 50 ML IVPB ONE; +HYDROcodone/APAP 5-325MG 1 EACH TAB PO PRN; -LACTATED RINGERS 1,000 ML IV SCH
[2020-10-23 09:02] VITALS: TEMP 98
--- NOTE | 2020-10-23 10:57 | CT ---
EXAMINATION TYPE: CT biopsy renal RT DATE OF EXAM: 10/23/2020 COMPARISON: NONE HISTORY: Chronic renal disease CT DLP: 303 mGycm The procedure was explained to the patient. The risks, complications, benefits, and alternatives wer e discussed and any questions were answered. Informed consent was obtained. Patient was placed pron e on the CT table and prepped and draped in the usual sterile fashion. Utilizing CT guidance, an 18 gauge core biopsy needle access into the right renal cortex was achieved and three 18 gauge core samples were obtained. The patient was stable throughout the procedure and remained stable upon discharge. IMPRESSION: Successful 18 gauge core biopsy of the kidney function.
[2020-10-23 14:34] VITALS: RESP 16
[2020-10-23 14:37] VITALS: PULSE 58
[2020-10-23 14:38] VITALS: BP 126/55
== END ==
LOC: RADPROMAIN 07:44
PROVIDERS: ATTEND Internal Medicine
DX: I12.9 Hypertensive chronic kidney disease with stage 1 through stage 4 chronic kidney disease, or unspecified chronic kidney disease (principal); N18.9 Chronic kidney disease, unspecified; N26.9 Renal sclerosis, unspecified
CPT/HCPCS: 36415; 50200; 77012; J2597; 86850; 86900; 86901

== ENCOUNTER → 2020-11-05 | Outpatient (CLI) | payer MEDICARE, BC ==
--- NOTE | 2020-11-05 16:16 | XR ---
EXAMINATION TYPE: XR lumbar spine 2 or 3V DATE OF EXAM: 11/05/2020 CLINICAL HISTORY: Lower back pain. No known injury. Pain when lying flat. TECHNIQUE: Frontal and lateral images of the lumbar spine are obtained. COMPARISON: 10/25/2019 CT abdomen pelvis FINDINGS: There are 5 lumbar type vertebral bodies identified. The lumbar spine shows satisfactory alignment without evidence of acute fracture or subluxation. Vertebral body heights and disk space he ights are within normal limits. Mild to moderate multilevel degenerative spurring of the endplates. Facet arthropathy of L4-L5 and L5-S1 bilaterally. No spondylolisthesis. Calcified atherosclerotic vas cular disease of the abdominal aorta. IMPRESSION: 1. Degenerative disc disease and facet arthropathy of the lumbar spine. 2. No acute fracture or subluxation.
== END | disposition home or self-care (01) ==
LOC: RADXRMAIN 12:35
PROVIDERS: ATTEND Family Medicine
DX: M51.36 Other intervertebral disc degeneration, lumbar region (principal); M47.816 Spondylosis without myelopathy or radiculopathy, lumbar region
CPT/HCPCS: 72100

== ENCOUNTER 2020-11-13 08:28 | Emergency (ER) | payer MEDICARE, BC ==
[2020-11-13 08:43] VITALS: TEMP 97.5
[2020-11-13] MEDS ORDERED: SODIUM CHLORIDE 0.9% 500 ML 500 ML IV STA (08:53)
--- NOTE | 2020-11-13 09:05 | ED ---
Abdominal Pain HPI - General Chief Complaint: Abdominal Pain Stated Complaint: Abd pain Time Seen by Provider: 11/13/20 08:39 Source: patient, RN notes reviewed Mode of arrival: ambulatory Limitations: no limitations - History of Present Illness Initial Comments: This is a 75-year-old male presents emergency Department chief complaint of abdominal pain. Patient states started last night patient states is gradually worsened overnight this morning. He states he has been constipated last 2-3 days. Reports no fevers chills no nausea vomiting dysuria hematuria. Patient does have known right kidney disease which he states he found of this year. Drea roberto does admit that he's had prior inguinal hernia repair, umbilical hernia repair denies any chest pain shortness breath no flank pain states he occasionally gets sharp stabbing pain. - Related Data Home Medications Medication Instructions Recorded Confirmed Aspirin 162 mg PO HS@2300 11/08/13 10/03/20 Clopidogrel [Plavix] 75 mg PO DAILY 11/08/13 10/03/20 Losartan Potassium [Cozaar] 100 mg PO AC-SUPPER@1800 04/04/18 10/23/20 ALPRAZolam [Xanax] 0.5 mg PO BID 09/28/18 10/23/20 Melatonin 10 mg PO HS@2300 09/28/18 10/23/20 Nitroglycerin Sl Tabs [Nitrostat] 0.4 mg SUBLINGUAL Q5M PRN 07/05/19 10/23/20 metFORMIN HCL [Glucophage] 1,000 mg PO BID@1800,2300 07/05/19 10/23/20 Cholecalciferol (Vitamin D3) 125 mcg PO HS@2300 10/25/19 10/03/20 [Vitamin D3 (5000 Iu)] Multivit-Min/FA/Lycopen/Lutein 1 tab PO DAILY 10/25/19 10/23/20 [Centrum Silver Tablet] Atorvastatin [Lipitor] 40 mg PO DAILY 09/26/20 10/03/20 Propranolol [Inderal] 80 mg PO DAILY 09/26/20 10/23/20 Torsemide [Demadex] 10 mg PO DAILY 09/26/20 10/23/20 amLODIPine [Norvasc] 5 mg PO DAILY 09/26/20 10/23/20 Previous Rx's Medication Instructions Recorded Magnesium Oxide 400 mg PO DAILY 30 Days #30 tablet 05/22/20 Allergies Allergy/AdvReac Type Severity Reaction Status Date / Time adhesive Allergy red skin Verified 11/13/20 08:29 bacitracin Allergy Rash/Hives Verified 11/13/20 08:29 [From Neosporin ([id number])] bacitracin zinc Allergy Rash/Hives Verified 11/13/20 08:29 [From Neosporin ([id number])] neomycin sulfate Allergy Rash/Hives Verified 11/13/20 08:29 [From Neosporin ([id number])] polymyxin B Allergy Rash/Hives Verified 11/13/20 08:29 [From Neosporin ([id number])] Review of Systems ROS Statement: Those systems with pertinent positive or pertinent negative responses have been documented in the HPI. ROS Other: All systems not noted in ROS Statement are negative. Past Medical History Past Medical History: Coronary Artery Disease (CAD), Cancer, Chest Pain / Angina, COPD, Diabetes Mellitus, GERD/Reflux, Hyperlipidemia, Hypertension, Myocardial Infarction ([place]), Osteoarthritis (OA), Prostate Disorder, Renal Disease, Thyroid Disorder Additional Past Medical History / Comment(s): PAST HX CARDIOMYOPATHY, RENAL CALCULUS, SQUAMOUS CELL SKIN CANCER (2017) MILD COPD, BPH HX OF COLON POLYPS, pancreatitis diverticulosis Last Myocardial Infarction Date:: 2011 History of Any Multi-Drug Resistant Organisms: None Reported Past Surgical History: Coronary Bypass/CABG, Heart Catheterization With Stent, Hernia Repair, Orthopedic Surgery Additional Past Surgical History / Comment(s): CABG X4-2006, STENT X1, UMBILICAL AND INCISIONAL HERNIA, RT SHOULDER ARTHROSCOPY, RT KNEE ARTHROSCOPY, colonoscopies Past Anesthesia/Blood Transfusion Reactions: No Reported Reaction Date of Last Stent Placement:: 2011 Past Psychological History: Anxiety Smoking Status: Former smoker Past Alcohol Use History: None Reported Past Drug Use History: None Reported - Past Family History Mother Family Medical History: Deep Vein Thrombosis (DVT) Brother(s) Family Medical History: Cancer Additional Family Medical History / Comment(s): COLON CANCER Sister(s) Family Medical History: Cancer Additional Family Medical History / Comment(s): LUNG CANCER General Exam Limitations: no limitations General appearance: alert, in no apparent distress Head exam: Present: atraumatic, normocephalic, normal inspection Respiratory exam: Present: normal lung sounds bilaterally. Absent: respiratory distress, wheezes, rales, rhonchi, stridor Cardiovascular Exam: Present: regular rate, normal rhythm, normal heart sounds. Absent: systolic murmur, diastolic murmur, rubs, gallop, clicks GI/Abdominal exam: Present: soft, tenderness, normal bowel sounds. Absent: distended, guarding, rebound, rigid Back exam: Absent: CVA tenderness (R), CVA tenderness (L) Neurological exam: Present: alert Skin exam: Present: warm, dry, intact, normal color. Absent: rash Course Vital Signs 11/13/20 11/13/20 08:40 09:56 Temperature 97.5 F L Pulse Rate 62 Respiratory 18 16 Rate Blood Pressure 178/82 168/90 O2 Sat by Pulse 99 100 Oximetry Medical Decision Making - Medical Decision Making Labs, CT reviewed no significant matting. Patient does baseline creatinine, no leukocytosis no evidence of infection. Patient does have moderate amount of stool the right hemicolon. Patient has been constipated. I did update family and patient results feel comfortable discharged with magnesium citrate and return for any worsening change in symptoms. - Lab Data Result diagrams: 11/13/20 08:54 11/13/20 08:54 Lab Results 11/13/20 11/13/20 11/13/20 Range/Units 08:54 08:54 08:54 WBC 8.7 (3.8-10.6) k/uL RBC 3.12 L (4.30-5.90) m/uL Hgb 11.2 L (13.0-17.5) gm/dL Hct 31.9 L (39.0-53.0) % MCV 102.2 H (80.0-100.0) fL MCH 35.7 H (25.0-35.0) pg MCHC 34.9 (31.0-37.0) g/dL RDW 16.9 H (11.5-15.5) % Plt Count 167 (150-450) k/uL MPV 8.9 Poikilocytosis Slight Anisocytosis Slight Macrocytosis Slight Sodium 136 L (137-145) mmol/L Potassium 5.3 H (3.5-5.1) mmol/L Chloride 105 (98-107) mmol/L Carbon Dioxide 26 (22-30) mmol/L Anion Gap 5 mmol/L BUN 37 H (9-20) mg/dL Creatinine 1.92 H (0.66-1.25) mg/dL Est GFR (CKD-EPI)AfAm 39 (>60 ml/min/1.73 sqM) Est GFR (CKD-EPI)NonAf 34 (>60 ml/min/1.73 sqM) Glucose 184 H (74-99) mg/dL Plasma Lactic Acid [place] 1.2 (0.7-2.0) mmol/L Calcium 9.7 (8.4-10.2) mg/dL Total Bilirubin 1.0 (0.2-1.3) mg/dL AST 35 (17-59) U/L ALT 31 (4-49) U/L Alkaline Phosphatase 54 (38-126) U/L Total Protein 6.0 L (6.3-8.2) g/dL Albumin 3.8 (3.5-5.0) g/dL Amylase 42 (30-110) U/L Lipase 68 (23-300) U/L Urine Color Urine Appearance (Clear) Urine pH (5.0-8.0) Ur Specific [place] (1.001-1.035) Urine Protein (Negative) Urine Glucose (UA) (Negative) Urine Ketones (Negative) Urine Blood (Negative) Urine Nitrite (Negative) Urine Bilirubin (Negative) Urine Urobilinogen (<2.0) mg/dL Ur Leukocyte Esterase (Negative) Urine RBC (0-5) /hpf Urine WBC (0-5) /hpf Ur Squamous Epith Cells (0-4) /hpf Hyaline Casts (0-2) /lpf Urine Mucus (None) /hpf 11/13/20 Range/Units 09:07 WBC (3.8-10.6) k/uL RBC (4.30-5.90) m/uL Hgb (13.0-17.5) gm/dL Hct (39.0-53.0) % MCV (80.0-100.0) fL MCH (25.0-35.0) pg MCHC (31.0-37.0) g/dL RDW (11.5-15.5) % Plt Count (150-450) k/uL MPV Poikilocytosis Anisocytosis Macrocytosis Sodium (137-145) mmol/L Potassium (3.5-5.1) mmol/L Chloride (98-107) mmol/L Carbon Dioxide (22-30) mmol/L Anion Gap mmol/L BUN (9-20) mg/dL Creatinine (0.66-1.25) mg/dL Est GFR (CKD-EPI)AfAm (>60 ml/min/1.73 sqM) Est GFR (CKD-EPI)NonAf (>60 ml/min/1.73 sqM) Glucose (74-99) mg/dL Plasma Lactic Acid [place] (0.7-2.0) mmol/L Calcium (8.4-10.2) mg/dL Total Bilirubin (0.2-1.3) mg/dL AST (17-59) U/L ALT (4-49) U/L Alkaline Phosphatase (38-126) U/L Total Protein (6.3-8.2) g/dL Albumin (3.5-5.0) g/dL Amylase (30-110) U/L Lipase (23-300) U/L Urine Color Yellow Urine Appearance Clear (Clear) Urine pH 6.5 (5.0-8.0) Ur Specific [place] 1.014 (1.001-1.035) Urine Protein 3+ H (Negative) Urine Glucose (UA) 1+ H (Negative) Urine Ketones Negative (Negative) Urine Blood Negative (Negative) Urine Nitrite Negative (Negative) Urine Bilirubin Negative (Negative) Urine Urobilinogen <2.0 (<2.0) mg/dL Ur Leukocyte Esterase Negative (Negative) Urine RBC 1 (0-5) /hpf Urine WBC 3 (0-5) /hpf Ur Squamous Epith Cells <1 (0-4) /hpf Hyaline Casts 1 (0-2) /lpf Urine Mucus Rare H (None) /hpf Disposition Clinical Impression: Abdominal pain, Constipation Disposition: HOME SELF-CARE Condition: Stable Instructions (If sedation given, give patient instructions): Abdominal Pain (ED) Additional Instructions: Please return to the Emergency Department if symptoms worsen or any other concerns. Is patient prescribed a controlled substance at d/c from ED?: No Referrals: Kris King MD [Primary Care Provider] - 1-2 days Time of Disposition: 10:46
[2020-11-13 09:37] LABS: Anisocytosis Slight; HCT 31.9 % (39.0-53.0); HGB 11.2 gm/dL (13.0-17.5); MCH 35.7 pg (25.0-35.0); MCHC 34.9 g/dL (31.0-37.0); MCV 102.2 fL (80.0-100.0); Macrocytosis Slight; Mean Platelet Volume 8.9; Platelet Count 167 k/uL (150-450); Poikilocytosis Slight; RBC 3.12 m/uL (4.30-5.90); RDW 16.9 % (11.5-15.5); WBC 8.7 k/uL (3.8-10.6)
--- NOTE | 2020-11-13 09:41 | CT ---
EXAMINATION TYPE: CT abdomen pelvis wo con DATE OF EXAM: 11/13/2020 COMPARISON: None HISTORY: RLQ pain CT DLP: 1339.4 mGycm Examination of the solid and hollow viscera is limited given the lack of contrast. FINDINGS: LUNG BASES: No evidence for nodule. No evidence for infiltrate. LIVER/GB: The gallbladder is unremarkable. No space-occupying hepatic lesion. PANCREAS: No pancreatic mass identified. No inflammatory process seen. SPLEEN: No evidence for splenomegaly. No intrasplenic lesions seen. ADRENALS: No adrenal nodules identified. No evidence for thickening. KIDNEYS: Renal cysts are seen bilaterally. No nephrolithiasis. No hydronephrosis. BOWEL: Appendix has a normal appearance. No evidence of bowel obstruction. No inflammatory process. Lymph nodes: No evidence for adenopathy greater than 1 cm. Abdominal aorta: Atheromatous changes seen. No evidence for aneurysm. Genital organs: No significant abnormality. Other: No significant abnormality. IMPRESSION: NO ACUTE PROCESS SEEN TO ACCOUNT FOR THE PATIENT'S SYMPTOMS.
[2020-11-13 09:55] LABS: Albumin 3.8 g/dL (3.5-5.0); Calcium 9.7 mg/dL (8.4-10.2); Potassium 5.3 mmol/L (3.5-5.1)
[2020-11-13 10:19] LABS: Appearance,Urine Clear (Clear); Bilirubin,Urine Negative (Negative); Blood,Urine Negative (Negative); Color,Urine Yellow; Glucose,Urine (UA) 1+ (Negative); Ketones,Urine Negative (Negative); Leukocyte Esterase,Urine Negative (Negative); Nitrite,Urine Negative (Negative); PH, Urine 6.5 (5.0-8.0); Protein,Urine 3+ (Negative); Specific Gravity,Urine 1.014 (1.001-1.035); Urobilinogen,Urine <2.0 mg/dL (<2.0)
[2020-11-13 10:20] LABS: Hyaline Casts,Urine 1 /lpf (0-2); Mucus,Urine Rare /hpf; RBC,Urine 1 /hpf (0-5); Squamous Epithelial Cell,Urine <1 /hpf (0-4); WBC,Urine 3 /hpf (0-5)
[2020-11-13] MEDS ORDERED: MAGNESIUM CITRATE 296 ML BOTTLE PO ONE (10:44)
[2020-11-13 11:02] VITALS: BP 167/87; PULSE 88; RESP 18
[2020-11-13 13:23] LABS: Band Neutrophils % 1 %; Eosinophils # (M) 0.26 k/uL (0-0.7); Lymphocytes # (M) 2.44 k/uL (1.0-4.8); Monocytes # (M) 1.31 k/uL (0-1.0); Neutrophils % (M) 53 %; Nucleated Red Blood Cells 0 /100 WBC (0-0); Total Cells Counted 100
== END 2020-11-13 11:07 | disposition home or self-care (01) ==
LOC: EC 08:28
DX: K59.00 Constipation, unspecified (principal); R10.31 Right lower quadrant pain; E11.9 Type 2 diabetes mellitus without complications; I10 Essential (primary) hypertension; J44.9 Chronic obstructive pulmonary disease, unspecified; I25.10 Atherosclerotic heart disease of native coronary artery without angina pectoris; K21.9 Gastro-esophageal reflux disease without esophagitis; I25.2 Old myocardial infarction; M19.90 Unspecified osteoarthritis, unspecified site; F41.9 Anxiety disorder, unspecified; Z79.84 Long term (current) use of oral hypoglycemic drugs; Z79.82 Long term (current) use of aspirin; Z79.899 Other long term (current) drug therapy
CPT/HCPCS: 36415; 74176; 80053; 81001; 82150; 83605; 83690; 85025; 96360; 99284

== ENCOUNTER 2020-11-14 06:16 | Emergency (ER) | payer MEDICARE, BC ==
[2020-11-14 06:23] VITALS: TEMP 97.8
[2020-11-14] MEDS ORDERED: SODIUM CHLORIDE 0.9% 500 ML 500 ML IV STA (06:50)
--- NOTE | 2020-11-14 07:15 | ED ---
Abdominal Pain HPI - General Chief Complaint: Abdominal Pain Stated Complaint: R Flank Pain Time Seen by Provider: 11/14/20 06:23 Source: patient, RN notes reviewed Mode of arrival: wheelchair Limitations: no limitations - History of Present Illness Initial Comments: 75-year-old male presents emergency Department with chief complaint of right- sided abdominal pain. Patient states he was seen here yesterday for workup with no specific findings. Patient was constipated but states that he is given medication and he had several large bowel movements. Patient states pain seems worse and it is worse with movements the right side. Denies any fevers chills no night sweats or nausea vomiting no dysuria no hematuria noted. Patient has no scrotal pain scrotal swelling no rashes - Related Data Home Medications Medication Instructions Recorded Confirmed Aspirin 162 mg PO HS@2300 11/08/13 10/03/20 Clopidogrel [Plavix] 75 mg PO DAILY 11/08/13 10/03/20 Losartan Potassium [Cozaar] 100 mg PO AC-SUPPER@1800 04/04/18 10/23/20 ALPRAZolam [Xanax] 0.5 mg PO BID 09/28/18 10/23/20 Melatonin 10 mg PO HS@2300 09/28/18 10/23/20 Nitroglycerin Sl Tabs [Nitrostat] 0.4 mg SUBLINGUAL Q5M PRN 07/05/19 10/23/20 metFORMIN HCL [Glucophage] 1,000 mg PO BID@1800,2300 07/05/19 10/23/20 Cholecalciferol (Vitamin D3) 125 mcg PO HS@2300 10/25/19 10/03/20 [Vitamin D3 (5000 Iu)] Multivit-Min/FA/Lycopen/Lutein 1 tab PO DAILY 10/25/19 10/23/20 [Centrum Silver Tablet] Atorvastatin [Lipitor] 40 mg PO DAILY 09/26/20 10/03/20 Propranolol [Inderal] 80 mg PO DAILY 09/26/20 10/23/20 Torsemide [Demadex] 10 mg PO DAILY 09/26/20 10/23/20 amLODIPine [Norvasc] 5 mg PO DAILY 09/26/20 10/23/20 Previous Rx's Medication Instructions Recorded Magnesium Oxide 400 mg PO DAILY 30 Days #30 tablet 05/22/20 Allergies Allergy/AdvReac Type Severity Reaction Status Date / Time adhesive Allergy red skin Verified 11/14/20 06:23 bacitracin Allergy Rash/Hives Verified 11/14/20 06:23 [From Neosporin ([id number])] bacitracin zinc Allergy Rash/Hives Verified 11/14/20 06:23 [From Neosporin ([id number])] neomycin sulfate Allergy Rash/Hives Verified 11/14/20 06:23 [From Neosporin ([id number])] polymyxin B Allergy Rash/Hives Verified 11/14/20 06:23 [From Neosporin ([id number])] Review of Systems ROS Statement: Those systems with pertinent positive or pertinent negative responses have been documented in the HPI. ROS Other: All systems not noted in ROS Statement are negative. 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 COPD, BPH HX OF COLON POLYPS, pancreatitis diverticulosis Last Myocardial Infarction Date:: 2011 History of Any Multi-Drug Resistant Organisms: None Reported Past Surgical History: Coronary Bypass/CABG, Heart Catheterization With Stent, Hernia Repair, Orthopedic Surgery Additional Past Surgical History / Comment(s): CABG X4-2006, STENT X1, UMBILICAL AND INCISIONAL HERNIA, RT SHOULDER ARTHROSCOPY, RT KNEE ARTHROSCOPY, colonoscopies Past Anesthesia/Blood Transfusion Reactions: No Reported Reaction Date of Last Stent Placement:: 2011 Past Psychological History: Anxiety Smoking Status: Former smoker Past Alcohol Use History: None Reported Past Drug Use History: None Reported - Past Family History Mother Family Medical History: Deep Vein Thrombosis (DVT) Brother(s) Family Medical History: Cancer Additional Family Medical History / Comment(s): COLON CANCER Sister(s) Family Medical History: Cancer Additional Family Medical History / Comment(s): LUNG CANCER General Exam General appearance: alert, in no apparent distress Head exam: Present: atraumatic, normocephalic, normal inspection Respiratory exam: Present: normal lung sounds bilaterally. Absent: respiratory distress, wheezes, rales, rhonchi, stridor Cardiovascular Exam: Present: regular rate, normal rhythm, normal heart sounds. Absent: systolic murmur, diastolic murmur, rubs, gallop, clicks GI/Abdominal exam: Present: soft, tenderness (Moderate right lower quadrant tenderness), normal bowel sounds. Absent: distended, guarding, rebound, rigid Back exam: Absent: CVA tenderness (R), CVA tenderness (L) Neurological exam: Present: alert Skin exam: Present: warm, dry, intact, normal color. Absent: rash Course Vital Signs 11/14/20 06:19 Temperature 97.8 F Pulse Rate 62 Respiratory 19 Rate Blood Pressure 167/81 O2 Sat by Pulse 99 Oximetry Medical Decision Making - Medical Decision Making 75-year-old male presented for revisit abdominal pain. Patient's pain seemed to worsen at home, repeated blood work which did not reveal any acute changes, x- ray obtained did show still a ball stool in the right side patient was tender CT was reordered though patient states he went to the bathroom have very large bowel movement in HIS pain has resolved. Patient feels comfortable with discharge with repeat CAT scan return parameters were discussed. - Lab Data Result diagrams: 11/14/20 06:56 11/14/20 06:56 Lab Results 11/14/20 11/14/20 11/14/20 Range/Units 06:56 06:56 06:56 WBC 10.0 (3.8-10.6) k/uL RBC 3.14 L (4.30-5.90) m/uL Hgb 11.2 L (13.0-17.5) gm/dL Hct 32.0 L (39.0-53.0) % MCV 101.8 H (80.0-100.0) fL MCH 35.6 H (25.0-35.0) pg MCHC 35.0 (31.0-37.0) g/dL RDW 17.0 H (11.5-15.5) % Plt Count 172 (150-450) k/uL MPV 8.6 Neutrophils % 64 % Lymphocytes % 20 % Monocytes % 9 % Eosinophils % 2 % Basophils % 1 % Neutrophils # 6.4 (1.3-7.7) k/uL Lymphocytes # 2.0 (1.0-4.8) k/uL Monocytes # 0.9 (0-1.0) k/uL Eosinophils # 0.2 (0-0.7) k/uL Basophils # 0.1 (0-0.2) k/uL Poikilocytosis Slight Anisocytosis Slight Macrocytosis Slight Sodium 136 L (137-145) mmol/L Potassium 4.9 (3.5-5.1) mmol/L Chloride 102 (98-107) mmol/L Carbon Dioxide 27 (22-30) mmol/L Anion Gap 7 mmol/L BUN 36 H (9-20) mg/dL Creatinine 1.90 H (0.66-1.25) mg/dL Est GFR (CKD-EPI)AfAm 39 (>60 ml/min/1.73 sqM) Est GFR (CKD-EPI)NonAf 34 (>60 ml/min/1.73 sqM) Glucose 186 H (74-99) mg/dL Plasma Lactic Acid Aldo (0.7-2.0) mmol/L Calcium 9.1 (8.4-10.2) mg/dL Total Bilirubin 1.0 (0.2-1.3) mg/dL AST 30 (17-59) U/L ALT 30 (4-49) U/L Alkaline Phosphatase 55 (38-126) U/L Total Protein 6.0 L (6.3-8.2) g/dL Albumin 3.7 (3.5-5.0) g/dL Amylase 42 (30-110) U/L Lipase 84 (23-300) U/L Urine Color Yellow Urine Appearance Clear (Clear) Urine pH 6.5 (5.0-8.0) Ur Specific [place] 1.011 (1.001-1.035) Urine Protein 3+ H (Negative) Urine Glucose (UA) Trace H (Negative) Urine Ketones Negative (Negative) Urine Blood Negative (Negative) Urine Nitrite Negative (Negative) Urine Bilirubin Negative (Negative) Urine Urobilinogen <2.0 (<2.0) mg/dL Ur Leukocyte Esterase Negative (Negative) Urine RBC <1 (0-5) /hpf Urine WBC 1 (0-5) /hpf Ur Squamous Epith Cells <1 (0-4) /hpf Urine Mucus Rare H (None) /hpf 11/14/ Range/Units 06:56 WBC (3.8-10.6) k/uL RBC (4.30-5.90) m/uL Hgb (13.0-17.5) gm/dL Hct (39.0-53.0) % MCV (80.0-100.0) fL MCH (25.0-35.0) pg MCHC (31.0-37.0) g/dL RDW (11.5-15.5) % Plt Count (150-450) k/uL MPV Neutrophils % % Lymphocytes % % Monocytes % % Eosinophils % % Basophils % % Neutrophils # (1.3-7.7) k/uL Lymphocytes # (1.0-4.8) k/uL Monocytes # (0-1.0) k/uL Eosinophils # (0-0.7) k/uL Basophils # (0-0.2) k/uL Poikilocytosis Anisocytosis Macrocytosis Sodium (137-145) mmol/L Potassium (3.5-5.1) mmol/L Chloride (98-107) mmol/L Carbon Dioxide (22-30) mmol/L Anion Gap mmol/L BUN (9-20) mg/dL Creatinine (0.66-1.25) mg/dL Est GFR (CKD-EPI)AfAm (>60 ml/min/1.73 sqM) Est GFR (CKD-EPI)NonAf (>60 ml/min/1.73 sqM) Glucose (74-99) mg/dL Plasma Lactic Acid [place] 1.4 (0.7-2.0) mmol/L Calcium (8.4-10.2) mg/dL Total Bilirubin (0.2-1.3) mg/dL AST (17-59) U/L ALT (4-49) U/L Alkaline Phosphatase (38-126) U/L Total Protein (6.3-8.2) g/dL Albumin (3.5-5.0) g/dL Amylase (30-110) U/L Lipase (23-300) U/L Urine Color Urine Appearance (Clear) Urine pH (5.0-8.0) Ur Specific [place] (1.001-1.035) Urine Protein (Negative) Urine Glucose (UA) (Negative) Urine Ketones (Negative) Urine Blood (Negative) Urine Nitrite (Negative) Urine Bilirubin (Negative) Urine Urobilinogen (<2.0) mg/dL Ur Leukocyte Esterase (Negative) Urine RBC (0-5) /hpf Urine WBC (0-5) /hpf Ur Squamous Epith Cells (0-4) /hpf Urine Mucus (None) /hpf Disposition Clinical Impression: Abdominal pain, Constipation Disposition: HOME SELF-CARE Condition: Stable Instructions (If sedation given, give patient instructions): Abdominal Pain (ED) Additional Instructions: Please return to the Emergency Department if symptoms worsen or any other concerns. Is patient prescribed a controlled substance at d/c from ED?: No Referrals: Kris King MD [Primary Care Provider] - 1-2 days Time of Disposition: 08:52
[2020-11-14 07:21] LABS: Albumin 3.7 g/dL (3.5-5.0); Calcium 9.1 mg/dL (8.4-10.2); Potassium 4.9 mmol/L (3.5-5.1)
[2020-11-14 07:22] LABS: Anisocytosis Slight; Basophils # (A) 0.1 k/uL (0-0.2); Basophils % (A) 1 %; Eosinophils # (A) 0.2 k/uL (0-0.7); Eosinophils % (A) 2 %; HGB 11.2 gm/dL (13.0-17.5); Lymphocytes % (A) 20 %; MCH 35.6 pg (25.0-35.0); MCV 101.8 fL (80.0-100.0); Macrocytosis Slight; Mean Platelet Volume 8.6; Monocytes # (A) 0.9 k/uL (0-1.0); Monocytes % (A) 9 %; Neutrophils # (A) 6.4 k/uL (1.3-7.7); Neutrophils % (A) 64 %; Platelet Count 172 k/uL (150-450); Poikilocytosis Slight; RBC 3.14 m/uL (4.30-5.90)
[2020-11-14 07:44] LABS: Appearance,Urine Clear (Clear); Bilirubin,Urine Negative (Negative); Blood,Urine Negative (Negative); Color,Urine Yellow; Glucose,Urine (UA) Trace (Negative); Ketones,Urine Negative (Negative); Leukocyte Esterase,Urine Negative (Negative); Mucus,Urine Rare /hpf; Nitrite,Urine Negative (Negative); PH, Urine 6.5 (5.0-8.0); Protein,Urine 3+ (Negative); RBC,Urine <1 /hpf (0-5); Specific Gravity,Urine 1.011 (1.001-1.035); Squamous Epithelial Cell,Urine <1 /hpf (0-4); Urobilinogen,Urine <2.0 mg/dL (<2.0); WBC,Urine 1 /hpf (0-5)
--- NOTE | 2020-11-14 07:53 | XR ---
EXAMINATION TYPE: XR KUB DATE OF EXAM: 11/14/2020 7:23 AM CLINICAL HISTORY: abdominal pain TECHNIQUE: Single supine KUB image of the abdomen is obtained. COMPARISON: 11/13/2020. FINDINGS: Scattered gas is seen in non-distended small bowel loops. Gas and fecal material is seen in non-distended colon. There is no visceromegaly, pneumoperitoneum, or abnormal calcification apprecia gena. IMPRESSION: Overall nonobstructive bowel gas pattern.
[2020-11-14 09:12] VITALS: BP 136/89; PULSE 74; RESP 16
== END 2020-11-14 09:11 | disposition home or self-care (01) ==
LOC: EC 06:16
DX: R10.31 Right lower quadrant pain (principal); K59.00 Constipation, unspecified; J44.9 Chronic obstructive pulmonary disease, unspecified; I10 Essential (primary) hypertension; E78.5 Hyperlipidemia, unspecified; E11.9 Type 2 diabetes mellitus without complications; I25.2 Old myocardial infarction; K21.9 Gastro-esophageal reflux disease without esophagitis; M19.90 Unspecified osteoarthritis, unspecified site; I25.10 Atherosclerotic heart disease of native coronary artery without angina pectoris; F41.9 Anxiety disorder, unspecified; Z87.891 Personal history of nicotine dependence; Z79.82 Long term (current) use of aspirin; Z79.84 Long term (current) use of oral hypoglycemic drugs
CPT/HCPCS: 36415; 74018; 80053; 81001; 82150; 83605; 83690; 85025; 96360; 96361; 99284

== ENCOUNTER 2020-11-24 07:09 | Day surgery (SDC) | payer MEDICARE, BC ==
[2020-11-20 12:25] VITALS: BMI 38.4
[~2020-11-24 07:09] MED LIST changes: -DESMOPRESSIN ACETATE 36 MCG in SODIUM CHLORIDE 0.9% 50 ML IVPB ONE; +DEXAMETHASONE SOD PHOSPHATE 4 MG/ML 1 ML VIAL IV ONE; +HEPARIN SODIUM,PORCINE/PF 5,000 UNIT/0.5 ML SYRINGE SQ PRN; -HYDROcodone/APAP 5-325MG 1 EACH TAB PO PRN; +HYDROmorphone 0.5 MG/0.5 ML SYRINGE IVP PRN; +LACTATED RINGERS 1,000 ML IV SCH; +MIDAZOLAM 2 MG/2 ML VIAL IV PRN; +ONDANSETRON 4 MG/2 ML VIAL IVP ONE; +metroNIDAZOLE-NS PMX 500 MG in SALINE 1 100ML.BAG IVPB PRN
--- NOTE | 2020-11-24 07:44 | P.GSHP ---
History of Present Illness H&P Date: 11/24/20 CHIEF COMPLAINT: Right lower quadrant abdominal pain HISTORY OF PRESENT ILLNESS: The patient is a 75-year-old male who presents with right lower quadrant abdominal pain and findings of appendicitis for over 2 weeks. He presents here for appendectomy PAST MEDICAL HISTORY: Please see list. PAST SURGICAL HISTORY: Please see list. MEDICATIONS: Please see list. ALLERGIES: Please see list. SOCIAL HISTORY: Please see list. FAMILY HISTORY: NPlease see list. REVIEW OF ORGAN SYSTEMS: CONSTITUTIONAL: No reports of fevers or chills. No reports of weight loss despite prior attempts. GI: Denies any blood in stools. Last colonoscopy less than 5 years ago. PHYSICAL EXAM: VITAL SIGNS: Stable GENERAL: Well-developed pleasant male in no acute distress. HEENT: No scleral icterus. Extraocular movements grossly intact. Moist buccal mucosa. NECK: Supple without lymphadenopathy. CHEST: Unlabored respirations. Equal bilateral excursions. CARDIOVASCULAR: Regular rate and rhythm. Distal 2+ pulses. ABDOMEN: Soft, nondistended. No peritoneal signs. Right lower quadrant abdomi nal pain MUSCULOSKELETAL: No clubbing, cyanosis, or edema. STUDIES: CT of the abdomen and pelvis reviewed demonstrating appendicolith. This is my independent interpretation ASSESSMENT: 1. Right lower quadrant abdominal pain 2. Appendicolith with appendicitis PLAN: 1. Recommend proceeding with a robotic appendectomy described 2. Benefits and risks of surgical intervention was discussed including possibility of open technique. 3. DVT prophylaxis. 4. Antibiotic prophylaxis. 5. Patient is elevated risk due to pre-existing heart disease Past Medical History Past Medical History: Coronary Artery Disease (CAD), Cancer, Chest Pain / Angina, COPD, Diabetes Mellitus, GERD/Reflux, Hyperlipidemia, Hypertension, Myocardial Infarction ([place]), Osteoarthritis (OA), Prostate Disorder, Renal Disease, Thyroid Disorder Additional Past Medical History / Comment(s): PAST HX CARDIOMYOPATHY, RENAL CALCULUS, SQUAMOUS CELL SKIN CANCER (2017) MILD COPD, BPH HX OF COLON POLYPS, pancreatitis diverticulosis, thyroid nodules Last Myocardial Infarction Date:: 2011 History of Any Multi-Drug Resistant Organisms: None Reported Past Surgical History: Coronary Bypass/CABG, Heart Catheterization With Stent, Hernia Repair, Orthopedic Surgery Additional Past Surgical History / Comment(s): CABG X4-2006, STENT X1, UMBILICAL AND INCISIONAL HERNIA, RT SHOULDER ARTHROSCOPY, RT KNEE ARTHROSCOPY, colonoscopies Past Anesthesia/Blood Transfusion Reactions: No Reported Reaction Date of Last Stent Placement:: 2011 Smoking Status: Former smoker - Past Family History Mother Family Medical History: Deep Vein Thrombosis (DVT) Brother(s) Family Medical History: Cancer Additional Family Medical History / Comment(s): COLON CANCER Sister(s) Family Medical History: Cancer Additional Family Medical History / Comment(s): LUNG CANCER Medications and Allergies Home Medications Medication Instructions Recorded Confirmed Type Aspirin 162 mg PO HS@2300 11/08/13 11/20/20 History Clopidogrel [Plavix] 75 mg PO DAILY 11/08/13 11/20/20 History Losartan Potassium [Cozaar] 100 mg PO AC-SUPPER@1800 04/04/18 11/20/20 History ALPRAZolam [Xanax] 1 mg PO TID 09/28/18 11/20/20 History Melatonin 10 mg PO HS@2300 09/28/18 11/20/20 History Nitroglycerin Sl Tabs [Nitrostat] 0.4 mg SUBLINGUAL Q5M PRN 07/05/19 11/20/20 History Cholecalciferol (Vitamin D3) 125 mcg PO HS@2300 10/25/19 11/20/20 History [Vitamin D3 (5000 Iu)] Multivit-Min/FA/Lycopen/Lutein 1 tab PO DAILY 10/25/19 11/20/20 History [Centrum Silver Tablet] Atorvastatin [Lipitor] 40 mg PO DAILY 09/26/20 11/20/20 History Propranolol [Inderal] 80 mg PO DAILY 09/26/20 11/20/20 History Torsemide [Demadex] 10 mg PO DAILY 09/26/20 11/20/20 History amLODIPine [Norvasc] 5 mg PO DAILY 09/26/20 11/20/20 History Glimepiride [Amaryl] 1 mg PO AC-BRKFST 11/20/20 11/20/20 History Magnesium Oxide 400 mg PO BID 11/20/20 11/20/20 History Allergies Allergy/AdvReac Type Severity Reaction Status Date / Time adhesive Allergy red skin Verified 11/20/20 12:16 bacitracin Allergy Rash/Hives Verified 11/20/20 12:16 [From Neosporin ([id number])] bacitracin zinc Allergy Rash/Hives Verified 11/20/20 12:16 [From Neosporin ([id number])] neomycin sulfate Allergy Rash/Hives Verified 11/20/20 12:16 [From Neosporin ([id number])] polymyxin B Allergy Rash/Hives Verified 11/20/20 12:16 [From Neosporin ([id number])] Surgical - Exam Vital Signs Temp Pulse Resp BP Pulse Ox 97.2 F L 64 18 147/71 99 11/24/20 07:35 11/24/20 07:35 11/24/20 07:35 11/24/20 07:35 11/24/20 07:35
[2020-11-24] MEDS ORDERED: ACETAMINOPHEN TAB 500 MG TAB PO PRN (07:45)
[2020-11-24] MEDS ORDERED: TAMSULOSIN 0.4 MG CAP.ER.24H PO PRN (07:45)
[2020-11-24 07:53] LABS: Glucose,Whole Blood 152 mg/dL (75-99)
[2020-11-24] MEDS ORDERED: LIDOCAINE 1% (10MG/ML) FOR IV START INTRADERMA ONE (07:56)
--- NOTE | 2020-11-24 09:06 | P.HPADDEND ---
H&P Addendum H&P Addendum Date: 11/24/20 All questions addressed. Patient reports history of right lower quadrant abdominal pain. Features of chronic appendicitis described. Robotic appendectomy described. Patient also reports that he does not have an advance directive. Daughter is at bedside.
[2020-11-24] MEDS ORDERED: fentaNYL (PF) 50 MCG/ML 2 ML AMP ONE (09:16)
[2020-11-24] MEDS ORDERED: ROCURONIUM 10 MG/ML (5 ML VIAL) IV ONE (09:16)
[2020-11-24] MEDS ORDERED: PROPOFOL 10 MG/ML 20 ML VIAL IV ONE (09:16)
[2020-11-24] MEDS ORDERED: SUCCINYLCHOLINE CHLORIDE VIAL 200 MG/10 ML VIAL IV ONE (09:16)
[2020-11-24] MEDS ORDERED: MIDAZOLAM 2 MG/2 ML VIAL ONE (09:16)
[2020-11-24] MEDS ORDERED: LIDOCAINE 1% INJ 10MG/ML (20 ML MDV) ONE (09:16)
[2020-11-24] MEDS ORDERED: NEOSTIGMINE 1 MG/ML 10 ML VIAL ONE (09:16)
[2020-11-24] MEDS ORDERED: GLYCOPYRROLATE 0.2 MG/ML 2 ML VIAL ONE (09:16)
[2020-11-24] MEDS ORDERED: LIDOCAINE 1%-EPI 1:100,000 20 ML VIAL SQ ONE (09:39)
[2020-11-24 10:31] VITALS: TEMP 96.8
[2020-11-24 10:46] LABS: Glucose,Whole Blood 250 mg/dL (75-99)
[2020-11-24] MEDS ORDERED: INSULIN ASPART (NovoLOG) 100 UNIT/ML VIAL SQ ONE (10:51)
--- NOTE | 2020-11-24 10:53 | P.OP ---
Date of Procedure: 11/24/20 Description of Procedure: SURGEON: FAVIOLA ARROYO MD Preoperative Diagnosis: 1. Chronic appendicitis 2. Morbid obesity due to excess calories, BMI 38.8 Postoperative Diagnosis: 1. Chronic appendicitis 2. Morbid obesity due to excess calories, BMI 38.8 Procedure(s) Performed: 1. Robotic-assisted daVinci Xi laparoscopic appendectomy Anesthesia: GETA, local Estimated Blood Loss (ml): 5 Pathology: other (appendix), epiploic appendagitis Condition: stable Disposition: floor Operative Findings: 1. Chronic appendicitis 2. Epiploic appendagitis of the sigmoid colon redundant to the right lower quadrant 3. Incarcerated incisional hernia epigastrium 4. Incarcerated umbilical hernia INDICATIONS: The patient is a 75-year-old male who presents with chronic appendicitis. Benefits and risks, including infection, open surgery, and bleeding for additional surgery was discussed at length. Informed consent was obtained. All questions of the patient and family were answered. DESCRIPTION: The patient was transferred to the operating room and placed in supine position. The patient had previously voided. The abdomen was then prepped and draped in standard sterile fashion as Ioban was placed along the abdomen to minimize any contamination of skin floor. After a timeout protocol was performed, attention was then brought to the left upper quadrant whereby a 0 degree 5 mm laparoscopic trocar entry was performed. The abdominal cavity was entered and insufflated to 12 mmHg pressure, which was tolerated well. Diagnostic laparoscopy demonstrated no injury to bowel, viscera or mesentery. Next a robotic 8-mm trocar was placed along the left lower quadrant, 10-cm lateral to the midline. A 12 mm port was placed along the left upper quadrant and another 8-mm port left lateral abdominal wall. Ports were placed 8 cm apart from each other including 15-20 cm away from the target anatomy of the right pelvis. The patient was then placed in Trendelenburg position, at least 10 down and right side up at least 6. The robotic da Emma XI system was primed and docked from the left side of the patient. Using atraumatic graspers and vessel sealer, the robotic system was docked and primed as described. Instruments were interchanged by the life enrichment assistant including graspers, robotic stapler and vessel sealer. Next, attention was brought to identify the cecum. A systematic view within the abdominal cavity was started with the small bowel which was unremarkable. The base of the cecum was unremarkable. Left inguinal hernia, indirect, 5 mm was found with scarring of the sigmoid colon. The right groin was unremarkable. The appendix was retrocecal coursing towards right u pper quadrant behind the ascending colon with additional dissection required. The body of the appendix was moderately dilated with moderate periappendicitis. No perforation was identified. The appendix was dissected free from its surrounding tissues. Blue 45 mm robotic staple loads were fired along the base of the appendix. The staple line was hemostatic. Hemostasis was checked prior to undocking the robot. The robot was undocked. I re-scrubbed into the case. The specimen was removed from the abdominal cavity with an Endo Catch bag through the 12 mm trocar at the left upper quadrant. The port site was closed with 0 Vicryl and Emiliano Peterson. All instruments and pneumoperitoneum were evacuated from the abdominal cavity. Local anesthetic was infiltrated to all wounds for postop analgesia. All incisions were also cleansed with diluted hydrogen peroxide. The incisions were closed with 4-0 Monocryl. Exofin glue was applied to the rest of the skin incisions. The patient had tolerated the procedure well. The patient was extubated successfully. The patient was transferred to the postanesthesia care unit in stable condition. Plan - Discharge Summary Discharge Rx Participant: Yes New Discharge Prescriptions: New Simethicone [Gas-X] 125 mg PO AC-TID PRN #20 capsule PRN Reason: Pain Acetaminophen Tab [Tylenol Tab] 1,000 mg PO Q6HR PRN #30 tablet PRN Reason: Pain Continue Clopidogrel [Plavix] 75 mg PO DAILY Aspirin 162 mg PO HS@2300 Losartan Potassium [Cozaar] 100 mg PO AC-SUPPER@1800 ALPRAZolam [Xanax] 1 mg PO TID Melatonin 10 mg PO HS@2300 Nitroglycerin Sl Tabs [Nitrostat] 0.4 mg SUBLINGUAL Q5M PRN PRN Reason: Chest Pain Cholecalciferol (Vitamin D3) [Vitamin D3 (5000 Iu)] 125 mcg PO HS@2300 Multivit-Min/FA/Lycopen/Lutein [Centrum Silver Tablet] 1 tab PO DAILY Propranolol [Inderal] 80 mg PO DAILY Atorvastatin [Lipitor] 40 mg PO DAILY Torsemide [Demadex] 10 mg PO DAILY Glimepiride [Amaryl] 1 mg PO AC-BRKFST amLODIPine [Norvasc] 5 mg PO DAILY Magnesium Oxide 400 mg PO BID Discharge Medication List Aspirin 162 mg PO HS@2300 11/08/13 [History] Clopidogrel [Plavix] 75 mg PO DAILY 11/08/13 [History] Losartan Potassium [Cozaar] 100 mg PO AC-SUPPER@1800 04/04/18 [History] ALPRAZolam [Xanax] 1 mg PO TID 09/28/18 [History] Melatonin 10 mg PO HS@2300 09/28/18 [History] Nitroglycerin Sl Tabs [Nitrostat] 0.4 mg SUBLINGUAL Q5M PRN 07/05/19 [History] Cholecalciferol (Vitamin D3) [Vitamin D3 (5000 Iu)] 125 mcg PO HS@2300 10/25/19 [History] Multivit-Min/FA/Lycopen/Lutein [Centrum Silver Tablet] 1 tab PO DAILY 10/25/19 [History] Atorvastatin [Lipitor] 40 mg PO DAILY 09/26/20 [History] Propranolol [Inderal] 80 mg PO DAILY 09/26/20 [History] Torsemide [Demadex] 10 mg PO DAILY 09/26/20 [History] amLODIPine [Norvasc] 5 mg PO DAILY 09/26/20 [History] Glimepiride [Amaryl] 1 mg PO AC-BRKFST 11/20/20 [History] Magnesium Oxide 400 mg PO BID 11/20/20 [History] Acetaminophen Tab [Tylenol Tab] 1,000 mg PO Q6HR PRN #30 tablet 11/24/20 [Rx] Simethicone [Gas-X] 125 mg PO AC-TID PRN #20 capsule 11/24/20 [Rx] Follow up Appointment(s)/Referral(s): Faviola Arroyo MD [STAFF PHYSICIAN] - 11/27/20 Patient Instructions/Handouts: Laparoscopic Appendectomy (DC) Activity/Diet/Wound Care/Special Instructions: No lifting over 10 pounds in 2 weeks until Dec 08. May shower. No bath tub soaks for two weeks until Dec 08. Diet as tolerated. Use Tylenol, simethicone scheduled for the next 24-48 hours for best pain relief. Use ice along incisions for today to prevent swelling. Discharge Disposition: HOME SELF-CARE
[2020-11-24 11:58] LABS: Glucose,Whole Blood 239 mg/dL (75-99)
[2020-11-24 13:11] VITALS: BP 106/70; PULSE 57; RESP 16
== END 2020-11-24 13:19 | disposition home or self-care (01) ==
LOC: OR 07:09
PROVIDERS: ATTEND Surgery Plastic and Reconstructive Surgery
DX: K37 Unspecified appendicitis (principal); E66.01 Morbid (severe) obesity due to excess calories; Z68.38 Body mass index [BMI] 38.0-38.9, adult; K63.89 Other specified diseases of intestine; I25.10 Atherosclerotic heart disease of native coronary artery without angina pectoris; J44.9 Chronic obstructive pulmonary disease, unspecified; E11.9 Type 2 diabetes mellitus without complications; I42.9 Cardiomyopathy, unspecified; K21.9 Gastro-esophageal reflux disease without esophagitis; E78.5 Hyperlipidemia, unspecified; I10 Essential (primary) hypertension; I25.2 Old myocardial infarction; M19.90 Unspecified osteoarthritis, unspecified site; N40.0 Benign prostatic hyperplasia without lower urinary tract symptoms; E04.1 Nontoxic single thyroid nodule; Z86.79 Personal history of other diseases of the circulatory system; Z87.442 Personal history of urinary calculi; Z85.828 Personal history of other malignant neoplasm of skin; Z86.010 Personal history of colon polyps; Z87.19 Personal history of other diseases of the digestive system; Z95.1 Presence of aortocoronary bypass graft; Z95.5 Presence of coronary angioplasty implant and graft; Z98.890 Other specified postprocedural states; Z82.49 Family history of ischemic heart disease and other diseases of the circulatory system; Z80.1 Family history of malignant neoplasm of trachea, bronchus and lung; Z79.84 Long term (current) use of oral hypoglycemic drugs; Z79.02 Long term (current) use of antithrombotics/antiplatelets; Z79.82 Long term (current) use of aspirin; Z79.899 Other long term (current) drug therapy; Z88.1 Allergy status to other antibiotic agents; Z91.09 Other allergy status, other than to drugs and biological substances
CPT/HCPCS: 44970; J2250; J0330; J1100; J2710; J0690; J2405; J2001; J3010; J2704; J1644; 88304

== ENCOUNTER → 2020-12-04 | Outpatient (CLI) | payer MEDICARE, BC ==
--- NOTE | 2020-12-04 17:20 | US ---
EXAMINATION TYPE: US kidneys/renal and bladder DATE OF EXAM: 12/04/2020 COMPARISON: NONE CLINICAL HISTORY: 75-year-old male N18.3 CKD Stage 3. CKD EXAM MEASUREMENTS: Right Kidney: 11.4 x 6.0 x 4.3 cm Left Kidney: 10.9 x 5.5 x 4.9 cm Right Kidney: Multiple small cortical cysts, largest in the upper pole measuring 1.2 x 1.4 x 1.0 cm. Left Kidney: Cystic area mid pole 5.9 x 4.7 x 6.8 cm. No hydronephrosis on either side. Partial distention of the bladder limits evaluation. Bilateral Jets seen: Yes IMPRESSION: Scattered benign renal cysts measuring up to 5.9 cm. No hydronephrosis.
== END | disposition home or self-care (01) ==
LOC: RADUSWWP 15:32
PROVIDERS: ATTEND Internal Medicine
DX: N18.30 Chronic kidney disease, stage 3 unspecified (principal); N28.1 Cyst of kidney, acquired
CPT/HCPCS: 76770

== ENCOUNTER 2020-12-11 09:21 | Day surgery (SDC) | payer MEDICARE, BC ==
[2020-12-11 09:51] VITALS: TEMP 97.9
[2020-12-11 10:09] LABS: Glucose,Whole Blood 138 mg/dL (75-99)
--- NOTE | 2020-12-11 11:09 | US ---
ULTRASOUND GUIDED FNA THYROID BIOPSY: CLINICAL HISTORY: Request for large left-sided thyroid nodule FINDINGS: The procedure was explained to the patient. The risks, complications, benefits and alternatives were discussed and any questions were answered. Informed consent was obtained. Patient was placed supin e on the ultrasound table and prepped and draped in the usual sterile fashion. Utilizing a 25 gauge needle, five passes were made into the requested left thyroid nodule. Patient was stable throughout the procedure. Pathology is pending. All elements of maximal barrier technique were utilized. IMPRESSION: 1. Successful ultrasound guided FNA thyroid biopsy.
[2020-12-11 11:51] VITALS: BP 135/80; PULSE 55; RESP 18
== END 2020-12-11 11:08 | disposition home or self-care (01) ==
LOC: RADPROMAIN 09:21
PROVIDERS: ATTEND Otolaryngology
DX: E04.2 Nontoxic multinodular goiter (principal)
CPT/HCPCS: 10005; 88173; 88305

== ENCOUNTER → 2021-06-23 | Outpatient (CLI) | payer MEDICARE, BC ==
--- NOTE | 2021-06-23 14:29 | US ---
EXAMINATION TYPE: US thyroid st tissue head/neck DATE OF EXAM: 06/23/2021 COMPARISON: Thyroid also on August 12, 2020 CLINICAL HISTORY: E04.1 THYROID NODULE. Thyroid nodule. GLAND SIZE: Right Lobe: 3.9 1.6 x 2.0 cm Overall Parenchyma: homogenous Left Lobe: 5.3 x 2.4 x 2.4 cm Overall Parenchyma: homogeneous Isthmus Thickness: cm NODULES RIGHT: # of nodules measured on right: 1 1. 1.3 X .8 x 1.0 cm, mid , solid or almost completely solid, hypoechoic nodule, which is wider nazia n tall, with smooth margins, with echogenic foci. Prior size: 1.3 x .8 x 1.0 cm LEFT: # of nodules measured on left: 1 1. 3.1 X 2.2 x 2.4 cm, mid , mixed cystic and solid, hypoechoic nodule, which is wider than tall, w ith smooth margins, with echogenic foci. Prior size: 3.1 x 2.2 x 2.4 cm ISTHMUS: # of nodules measured in the isthmus: 0 Bilateral neck scanned, no evidence of lymphadenopathy. Stable homogeneous normal-sized thyroid with bilateral nodules noted as detailed above including joe nant solid 3.1 cm left sided hypoechoic predominantly solid nodule . This has been sampled in the pas t. IMPRESSION: As above. No new suspicious thyroid nodules.
== END | disposition home or self-care (01) ==
LOC: RADUSWWP 13:30
PROVIDERS: ATTEND Otolaryngology
DX: E04.1 Nontoxic single thyroid nodule (principal)
CPT/HCPCS: 76536

== ENCOUNTER 2022-01-06 07:09 | Day surgery (SDC) | payer MEDICARE, BC ==
[~2022-01-06 07:09] MED LIST changes: -DEXAMETHASONE SOD PHOSPHATE 4 MG/ML 1 ML VIAL IV ONE; -HEPARIN SODIUM,PORCINE/PF 5,000 UNIT/0.5 ML SYRINGE SQ PRN; -HYDROmorphone 0.5 MG/0.5 ML SYRINGE IVP PRN; -LACTATED RINGERS 1,000 ML IV SCH; +LIDOCAINE 1% (10MG/ML) FOR IV START INTRADERMA PRN; -MIDAZOLAM 2 MG/2 ML VIAL IV PRN; -ONDANSETRON 4 MG/2 ML VIAL IVP ONE; -metroNIDAZOLE-NS PMX 500 MG in SALINE 1 100ML.BAG IVPB PRN
[2022-01-06 07:43] VITALS: TEMP 98.1
[2022-01-06] MEDS: LACTATED RINGERS 1,000 ML IV SCH ×2 (07:49→07:53)
[2022-01-06 07:50] LABS: Glucose,Whole Blood 122 mg/dL (70-110)
--- NOTE | 2022-01-06 07:53 | P.GSHP ---
History of Present Illness H&P Date: 01/06/22 CHIEF COMPLAINT: Colon screen HISTORY OF PRESENT ILLNESS: The patient is a 76-year-old male who presents for colon screen. Lower endoscopy was offered for further evaluation and management. PAST MEDICAL HISTORY: Please see list. PAST SURGICAL HISTORY: Please see list. MEDICATIONS: Please see list. ALLERGIES: Please see list. SOCIAL HISTORY: No illicit drug use FAMILY HISTORY: No reports of Crohn disease or ulcerative colitis. REVIEW OF ORGAN SYSTEMS: CONSTITUTIONAL: No reports of fevers or chills. PHYSICAL EXAM: VITAL SIGNS: Stable GENERAL: Well-developed pleasant in no acute distress. HEENT: No scleral icterus. Extraocular movements grossly intact. Moist buccal mucosa. NECK: Supple without lymphadenopathy. CHEST: Unlabored respirations. Equal bilateral excursions. CARDIOVASCULAR: Regular rate and rhythm. Distal 2+ pulses. ABDOMEN: Soft, nontender, nondistended. MUSCULOSKELETAL: No clubbing, cyanosis, or edema. ASSESSMENT: 1. Colon screen. PLAN: 1. Recommend proceeding with a lower endoscopy Past Medical History Past Medical History: Coronary Artery Disease (CAD), Cancer, Chest Pain / Angina, COPD, Diabetes Mellitus, GERD/Reflux, Hyperlipidemia, Hypertension, Myocardial Infarction ([place]), Osteoarthritis (OA), Prostate Disorder, Renal Disease, Thyroid Disorder Additional Past Medical History / Comment(s): PAST HX CARDIOMYOPATHY, RENAL CALCULUS, SQUAMOUS CELL SKIN CANCER (2017) MILD COPD, BPH HX OF COLON POLYPS, pancreatitis diverticulosis, thyroid nodules Last Myocardial Infarction Date:: 2011 History of Any Multi-Drug Resistant Organisms: None Reported Past Surgical History: Coronary Bypass/CABG, Heart Catheterization With Stent, Hernia Repair, Orthopedic Surgery Additional Past Surgical History / Comment(s): CABG X4-2006, STENT X1, UMBILICAL AND INCISIONAL HERNIA, RT SHOULDER ARTHROSCOPY, RT KNEE ARTHROSCOPY, colonoscopies Past Anesthesia/Blood Transfusion Reactions: No Reported Reaction Date of Last Stent Placement:: 2011 Past Psychological History: Anxiety Smoking Status: Former smoker Past Alcohol Use History: None Reported Additional Past Alcohol Use History / Comment(s): quit smoking , SMOKED 1/2 PPD Past Drug Use History: None Reported - Past Family History Mother Family Medical History: Deep Vein Thrombosis (DVT) Brother(s) Family Medical History: Cancer Additional Family Medical History / Comment(s): COLON CANCER Sister(s) Family Medical History: Cancer Additional Family Medical History / Comment(s): LUNG CANCER Medications and Allergies Home Medications Medication Instructions Recorded Confirmed Type Aspirin 162 mg PO BID 11/08/13 01/06/22 History ALPRAZolam [Xanax] 1 mg PO DAILY 09/28/18 01/06/22 History Nitroglycerin Sl Tabs [Nitrostat] 0.4 mg SUBLINGUAL Q5M PRN 07/05/19 01/06/22 History Cholecalciferol (Vitamin D3) 125 mcg PO DAILY 10/25/19 01/06/22 History [Vitamin D3 (5000 Iu)] Multivit-Min/FA/Lycopen/Lutein 1 tab PO DAILY 10/25/19 01/06/22 History [Centrum Silver Tablet] Atorvastatin [Lipitor] 40 mg PO DAILY 09/26/20 01/06/22 History Propranolol [Inderal] 80 mg PO DAILY 09/26/20 01/06/22 History Torsemide [Demadex] 10 mg PO DAILY 09/26/20 01/06/22 History Glimepiride [Amaryl] 0.5 mg PO BID 11/20/20 01/06/22 History Acetaminophen Tab [Tylenol Tab] 1,000 mg PO Q6HR PRN #30 tablet 11/24/20 01/06/22 Rx FLUoxetine HCL [PROzac] 10 mg PO QAM 01/05/22 01/06/22 History Famotidine [Pepcid] 10 mg PO DAILY PRN 01/05/22 01/06/22 History Losartan [Cozaar] 50 mg PO QAM 01/05/22 01/06/22 History allopurinoL 100 mg PO DAILY 01/05/22 01/06/22 History Allergies Allergy/AdvReac Type Severity Reaction Status Date / Time adhesive Allergy red skin Verified 01/06/22 07:29 bacitracin Allergy Rash/Hives Verified 01/06/22 07:29 [From Neosporin ([id number])] bacitracin zinc Allergy Rash/Hives Verified 01/06/22 07:29 [From Neosporin ([id number])] neomycin sulfate Allergy Rash/Hives Verified 01/06/22 07:29 [From Neosporin ([id number])] polymyxin B Allergy Rash/Hives Verified 01/06/22 07:29 [From Neosporin ([id number])] Surgical - Exam Vital Signs Temp Pulse Resp BP Pulse Ox 98.1 F 61 20 210/89 99 01/06/22 07:41 01/06/22 07:41 01/06/22 07:41 01/06/22 07:41 01/06/22 07:41 Results - Labs Abnormal Lab Results - Last 24 Hours (Table) 01/06/22 Range/Units 07:47 POC Glucose (mg/dL) 122 H (70-110) mg/dL
[2022-01-06] MEDS ORDERED: PROPOFOL 10 MG/ML 20 ML VIAL IV ONE (07:55)
--- NOTE | 2022-01-06 08:34 | P.PCN ---
Date of Procedure: 01/06/22 Description of Procedure: PREOPERATIVE DIAGNOSIS: Personal history of colon polyps Colonoscopy screening POSTOPERATIVE DIAGNOSIS: Tubular adenoma descending colon Tubular adenoma transverse colon Tubular adenoma sigmoid colon Sigmoid diverticulosis OPERATION: Colonoscopy to the ileocecal valve and appendiceal orifice, cecum Colonoscopy with hot snare polypectomy Colonoscopy with cold forceps biopsy SURGEON: Faviola Arroyo MD. ANESTHESIA: MAC. INDICATIONS: The patient is an 76-year-old male who presents personal history of colon polyps. Last colonoscopy less than 5 years. Benefits and risks were described and informed consent was obtained. DESCRIPTION OF PROCEDURE: The patient had undergone Sutab prep. The patient had been brought into the operating room and laid in the left lateral decubitus position. After adequate intravenous sedation, the rectum was examined with 2% lidocaine jelly. The prostate fossa was unremarkable. No external hemorrhoids were encountered. The rectal tone was within normal limits. No lesions were palpated in the rectal vault. Abdominal wall pressure was required to advance the scope to the cecum. An Olympus colonoscope was advanced until the cecum, ileocecal valve and appendiceal orifice were clearly viewed. The prep was good. Sigmoid divert iculosis was encountered. Colonic polyps were found and removed. No evidence of focal colitis was found. Retroflexion of the scope demonstrated grade 2 internal hemorrhoids without active bleeding or inflammation. The colon was desufflated. The patient had tolerated the procedure well. Withdrawal time was over 6 minutes. FINDINGS: Aronchick preparation quality scale 2 (1-5) Internal hemorrhoids, grade 2 No arteriovenous malformations. Sigmoid diverticulosis Removal of 6 polyps: - Snare polypectomy 60 cm from the anal verge, 5 mm tubulovillous adenoma, descending colon - Snare polypectomy 30 cm from the anal verge, 8 mm adenoma, sigmoid colon - Snare polypectomy 50 cm x 2 from the anal verge, 5 to 6 mm flat villous adenoma polyp, descending colon - Cold forceps biopsy at mid transverse colon, 5 mm polyp. - Cold forceps biopsy at proximal transverse colon, 4 mm polyp. No focal colitis. RECOMMENDATIONS: Repeat colonoscopy in 3 years, 2024 Plan - Discharge Summary Discharge Rx Participant: No New Discharge Prescriptions: Continue Aspirin 162 mg PO BID ALPRAZolam [Xanax] 1 mg PO DAILY Nitroglycerin Sl Tabs [Nitrostat] 0.4 mg SUBLINGUAL Q5M PRN PRN Reason: Chest Pain Cholecalciferol (Vitamin D3) [Vitamin D3 (5000 Iu)] 125 mcg PO DAILY Multivit-Min/FA/Lycopen/Lutein [Centrum Silver Tablet] 1 tab PO DAILY Propranolol [Inderal] 80 mg PO DAILY Atorvastatin [Lipitor] 40 mg PO DAILY Torsemide [Demadex] 10 mg PO DAILY Glimepiride [Amaryl] 0.5 mg PO BID Acetaminophen Tab [Tylenol] 1,000 mg PO Q6HR PRN #30 tablet PRN Reason: Pain allopurinoL 100 mg PO DAILY Losartan [Cozaar] 50 mg PO QAM Famotidine [Pepcid] 10 mg PO DAILY PRN PRN Reason: GERD FLUoxetine HCL [PROzac] 10 mg PO QAM Discharge Medication List Aspirin 162 mg PO BID 11/08/13 [History] ALPRAZolam [Xanax] 1 mg PO DAILY 09/28/18 [History] Nitroglycerin Sl Tabs [Nitrostat] 0.4 mg SUBLINGUAL Q5M PRN 07/05/19 [History] Cholecalciferol (Vitamin D3) [Vitamin D3 (5000 Iu)] 125 mcg PO DAILY 10/25/19 [History] Multivit-Min/FA/Lycopen/Lutein [Centrum Silver Tablet] 1 tab PO DAILY 10/25/19 [History] Atorvastatin [Lipitor] 40 mg PO DAILY 09/26/20 [History] Propranolol [Inderal] 80 mg PO DAILY 09/26/20 [History] Torsemide [Demadex] 10 mg PO DAILY 09/26/20 [History] Glimepiride [Amaryl] 0.5 mg PO BID 11/20/20 [History] Acetaminophen Tab [Tylenol] 1,000 mg PO Q6HR PRN #30 tablet 11/24/20 [Rx] FLUoxetine HCL [PROzac] 10 mg PO QAM 01/05/22 [History] Famotidine [Pepcid] 10 mg PO DAILY PRN 01/05/22 [History] Losartan [Cozaar] 50 mg PO QAM 01/05/22 [History] allopurinoL 100 mg PO DAILY 01/05/22 [History] Follow up Appointment(s)/Referral(s): Faviola Arroyo MD [STAFF PHYSICIAN] - As Needed Patient Instructions/Handouts: Diverticulosis Diet (GEN), Diverticulosis (DC), Colorectal Polyps (GEN) Activity/Diet/Wound Care/Special Instructions: Repeat colonoscopy in 3 years, 2024 Discharge Disposition: HOME SELF-CARE
[2022-01-06 08:48] VITALS: BP 166/89; PULSE 53; RESP 20
== END 2022-01-06 09:11 | disposition home or self-care (01) ==
LOC: ORWHC2ENDO 07:09
PROVIDERS: ATTEND Surgery Plastic and Reconstructive Surgery
DX: Z12.11 Encounter for screening for malignant neoplasm of colon (principal); D12.3 Benign neoplasm of transverse colon; D12.4 Benign neoplasm of descending colon; D12.5 Benign neoplasm of sigmoid colon; K64.8 Other hemorrhoids; K57.30 Diverticulosis of large intestine without perforation or abscess without bleeding; Z86.010 Personal history of colon polyps; I25.10 Atherosclerotic heart disease of native coronary artery without angina pectoris; R07.9 Chest pain, unspecified; J44.9 Chronic obstructive pulmonary disease, unspecified; E11.9 Type 2 diabetes mellitus without complications; K21.9 Gastro-esophageal reflux disease without esophagitis; E78.5 Hyperlipidemia, unspecified; I10 Essential (primary) hypertension; F41.9 Anxiety disorder, unspecified; I25.2 Old myocardial infarction; M19.90 Unspecified osteoarthritis, unspecified site; N42.9 Disorder of prostate, unspecified; E07.9 Disorder of thyroid, unspecified; N20.0 Calculus of kidney; N40.0 Benign prostatic hyperplasia without lower urinary tract symptoms; N28.9 Disorder of kidney and ureter, unspecified; E04.1 Nontoxic single thyroid nodule; Z95.1 Presence of aortocoronary bypass graft; Z95.5 Presence of coronary angioplasty implant and graft; Z90.89 Acquired absence of other organs; Z98.890 Other specified postprocedural states; Z85.828 Personal history of other malignant neoplasm of skin; Z87.891 Personal history of nicotine dependence; Z82.49 Family history of ischemic heart disease and other diseases of the circulatory system; Z84.89 Family history of other specified conditions; Z80.0 Family history of malignant neoplasm of digestive organs; Z79.82 Long term (current) use of aspirin; Z79.84 Long term (current) use of oral hypoglycemic drugs; Z79.899 Other long term (current) drug therapy; Z91.040 Latex allergy status; Z88.2 Allergy status to sulfonamides; Z88.8 Allergy status to other drugs, medicaments and biological substances; Z88.1 Allergy status to other antibiotic agents
CPT/HCPCS: 88305; 45380; 45385; J2704

== ENCOUNTER → 2022-01-08 | Outpatient (CLI) | payer MEDICARE, BC ==
--- NOTE | 2022-01-08 12:11 | US ---
EXAMINATION TYPE: US thyroid st tissue head/neck DATE OF EXAM: 01/08/2022 COMPARISON: US CLINICAL HISTORY: E04.1 Thyroid nodule. F/U GLAND SIZE: Right Lobe: 4.1 x 1.5 x 1.6 cm Overall Parenchyma: homogenous Left Lobe: 5.4 x 2.1 x 2.5 cm Overall Parenchyma: homogeneous Isthmus Thickness: 0.5 cm NODULES RIGHT: # of nodules measured on right: 1 1. 1.1 X 0.7 x 0.8 cm, mid, solid or almost completely solid, hypoechoic nodule, which is wider nazia n tall, with smooth margins, without echogenic foci. Prior size: 1.3 x 0.8 x 1.0 cm LEFT: # of nodules measured on left: 1 1. 2.7 X 2.1 x 2.2 cm, mid, solid or almost completely solid, hypoechoic nodule, which is wider nazia n tall, with smooth margins, with echogenic foci. TR 4 Prior size: 3.1 x 2.2 x 2.4 cm ISTHMUS: # of nodules measured in the isthmus: 0 Bilateral neck scanned, no evidence of lymphadenopathy. Bilateral nodules, slight decrease in size w hen compared to prior. IMPRESSION: Moderately suspicious nodule within the left lobe thyroid. This is smaller than comparison. This nodu le has been previously biopsied. 2017 ACR TI-RADS LEVEL: TR-RADS 4 - Moderately Suspicious: Follow if > 1 cm, FNA if > 1.5 cm *Highest TI-RADS level nodule reported
== END | disposition home or self-care (01) ==
LOC: RADUSWWP 08:53
PROVIDERS: ATTEND Otolaryngology
DX: E04.1 Nontoxic single thyroid nodule (principal)
CPT/HCPCS: 76536

== ENCOUNTER 2022-05-26 13:07 | Inpatient (IN) | payer MEDICARE, BC ==
[2022-05-26] MEDS ORDERED: NITROGLYCERIN OINT 1 INCH/GM PACKET TOPICAL STA (13:28)
[2022-05-26] MEDS ORDERED: ASPIRIN 81 MG PO STA (13:28)
[2022-05-26 13:40] LABS: Anisocytosis Slight; Basophils # (A) 0.1 k/uL (0-0.2); Basophils % (A) 1 %; Eosinophils # (A) 0.3 k/uL (0-0.7); Eosinophils % (A) 3 %; HGB 11.9 gm/dL (13.0-17.5); Lymphocytes # (A) 2.6 k/uL (1.0-4.8); Lymphocytes % (A) 31 %; MCH 34.6 pg (25.0-35.0); Macrocytosis Slight; Mean Platelet Volume 9.2; Monocytes # (A) 0.7 k/uL (0-1.0); Monocytes % (A) 8 %; Neutrophils # (A) 4.5 k/uL (1.3-7.7); Neutrophils % (A) 53 %; Platelet Count 157 k/uL (150-450); Poikilocytosis Slight; RBC 3.44 m/uL (4.30-5.90); RDW 16.2 % (11.5-15.5); WBC 8.5 k/uL (3.8-10.6)
--- NOTE | 2022-05-26 13:42 | ED ---
General Adult HPI - General Chief complaint: Chest Pain Stated complaint: abn labs Time Seen by Provider: 05/26/22 13:10 Source: patient, family, RN notes reviewed, old records reviewed Mode of arrival: ambulatory Limitations: no limitations - History of Present Illness Initial comments: This is a 77-year-old male presents emergency Department with a past medical history significant for bypass surgery diabetes high blood pressure and high cholesterol. Patient comes in today from Dr. King's office. Patient was having chest pain for the last 2 days on and off but mostly all day yesterday. Patient states the pain did radiate to his back a little. Patient denies any difficulty breathing shortness of breath. Patient denies any headache patient denies numbness weakness. Patient denies any lightheadedness or dizziness. Patient denies any recent fever chills or cough. - Related Data Home Medications Medication Instructions Recorded Confirmed Aspirin 162 mg PO BID 11/08/13 01/06/22 ALPRAZolam [Xanax] 1 mg PO DAILY 09/28/18 01/06/22 Nitroglycerin Sl Tabs [Nitrostat] 0.4 mg SUBLINGUAL Q5M PRN 07/05/19 01/06/22 Cholecalciferol (Vitamin D3) 125 mcg PO DAILY 10/25/19 01/06/22 [Vitamin D3 (5000 Iu)] Multivit-Min/FA/Lycopen/Lutein 1 tab PO DAILY 10/25/19 01/06/22 [Centrum Silver Tablet] Atorvastatin [Lipitor] 40 mg PO DAILY 09/26/20 01/06/22 Propranolol [Inderal] 80 mg PO DAILY 09/26/20 01/06/22 Torsemide [Demadex] 10 mg PO DAILY 09/26/20 01/06/22 Glimepiride [Amaryl] 0.5 mg PO BID 11/20/20 01/06/22 FLUoxetine HCL [PROzac] 10 mg PO QAM 01/05/22 01/06/22 Famotidine [Pepcid] 10 mg PO DAILY PRN 01/05/22 01/06/22 Losartan [Cozaar] 50 mg PO QAM 01/05/22 01/06/22 allopurinoL 100 mg PO DAILY 01/05/22 01/06/22 Previous Rx's Medication Instructions Recorded Acetaminophen Tab [Tylenol] 1,000 mg PO Q6HR PRN #30 tablet 11/24/20 Allergies Allergy/AdvReac Type Severity Reaction Status Date / Time adhesive Allergy red skin Verified 01/06/22 07:29 bacitracin Allergy Rash/Hives Verified 01/06/22 07:29 [From Neosporin ([id number])] bacitracin zinc Allergy Rash/Hives Verified 01/06/22 07:29 [From Neosporin ([id number])] neomycin sulfate Allergy Rash/Hives Verified 01/06/22 07:29 [From Neosporin ([id number])] polymyxin B Allergy Rash/Hives Verified 01/06/22 07:29 [From Neosporin ([id number])] Review of Systems ROS Statement: Those systems with pertinent positive or pertinent negative responses have been documented in the HPI. ROS Other: All systems not noted in ROS Statement are negative. Past Medical History Past Medical History: Coronary Artery Disease (CAD), Cancer, Chest Pain / Angina, COPD, Diabetes Mellitus, GERD/Reflux, Hyperlipidemia, Hypertension, Myocardial Infarction (ID), Osteoarthritis (OA), Prostate Disorder, Renal Disease, Thyroid Disorder Additional Past Medical History / Comment(s): PAST HX CARDIOMYOPATHY, RENAL CALCULUS, SQUAMOUS CELL SKIN CANCER (2017) MILD COPD, BPH HX OF COLON POLYPS, pancreatitis diverticulosis, thyroid nodules Last Myocardial Infarction Date:: 2011 History of Any Multi-Drug Resistant Organisms: None Reported Past Surgical History: Coronary Bypass/CABG, Heart Catheterization With Stent, Hernia Repair, Orthopedic Surgery Additional Past Surgical History / Comment(s): CABG X4-2006, STENT X1, UMBILICAL AND INCISIONAL HERNIA, RT SHOULDER ARTHROSCOPY, RT KNEE ARTHROSCOPY, colonoscopies Past Anesthesia/Blood Transfusion Reactions: No Reported Reaction Date of Last Stent Placement:: 2011 Past Psychological History: Anxiety Smoking Status: Former smoker Past Alcohol Use History: None Reported Past Drug Use History: None Reported - Past Family History Mother Family Medical History: Deep Vein Thrombosis (DVT) Brother(s) Family Medical History: Cancer Additional Family Medical History / Comment(s): COLON CANCER Sister(s) Family Medical History: Cancer Additional Family Medical History / Comment(s): LUNG CANCER General Exam - General Exam Comments Initial Comments: GENERAL: Patient is well-developed and well-nourished. Patient is nontoxic and well- hydrated and is in no acute distress. ENT: Neck is soft and supple. No significant lymphadenopathy is noted. Oropharynx is clear. Moist mucous membranes. Neck has full range of motion without el iciting any pain. EYES: The sclera were anicteric and conjunctiva were pink and moist. Extraocular movements were intact and pupils were equal round and reactive to light. Eyelids were unremarkable. PULMONARY: Unlabored respirations. Good breath sounds bilaterally. No audible rales rhonchi or wheezing was noted. CARDIOVASCULAR: There is a regular rate and rhythm without any murmurs gallops or rubs. ABDOMEN: Soft and nontender with normal bowel sounds. SKIN: Skin is clear with no lesions or rashes and otherwise unremarkable. NEUROLOGIC: Patient is alert and oriented x3. Cranial nerves II through XII are grossly intact. Motor and sensory are also intact. Normal speech, volume and content. Symmetrical smile. MUSCULOSKELETAL: Normal extremities with adequate strength and full range of motion. No lower extremity swelling or edema. No calf tenderness. LYMPHATICS: No significant lymphadenopathy is noted PSYCHIATRIC: Normal psychiatric evaluation. Limitations: no limitations Course Vital Signs 05/26/22 05/26/22 05/26/22 13:18 13:26 14:30 Temperature 98.2 F Pulse Rate 74 63 Pulse Rate [ 74 Manufacturing Support Engineer ] Respiratory 18 18 Rate Blood Pressure 175/93 167/99 O2 Sat by Pulse 97 98 Oximetry Medical Decision Making - Medical Decision Making EKG shows sinus rhythm at 62 bpm AK interval 190 QRS is 190 QTC of 416 QTC is 421. Patient's EKG shows no ST segment elevation or depression. Was pt. sent in by a medical professional or institution (, PA, TUBE BENDING MACHINE OPERATOR, urgent care, hospital, or correction...) When possible be specific @ -Dr. King sent the patient in to the emergency department. Did you speak to anyone other than the patient for history (EMS, parent, family, police, friend...)? What history was obtained from this source @ -I spoke with Dr. King about the patient's history prior to the patient's arrival Did you review nursing and triage notes (agree or disagree)? Why? @ -I reviewed and agree with nursing and triage notes Were old charts reviewed (outside hosp., previous admission, EMS record, old EKG, old radiological studies, urgent care reports/EKG's, correction records)? Report findings @ -I reviewed the patient's previous EKGs as well as previous lab work Differential Diagnosis (chest pain, altered mental status, abdominal pain women, abdominal pain men, vaginal bleeding, weakness, fever, dyspnea, syncope, headache, dizziness, GI bleed, back pain, seizure, CVA, palpatations, mental health)? @ -Differential Chest Pain: Stable Angina, Unstable Angina, STEMI, NSTEMI Aortic Dissection, Pneumothorax, Musculoskeletal, Esophageal Spasm GERD, Cholecystitis, Pancreatitis, Zoster, this is not meant to be an all-inclusive list. EKG interpreted by me (3pts min.). @ -As above X-rays interpreted by me (1pt min.). @ -Chest x-ray was interpreted by myself is on no acute abnormality. CT interpreted by me (1pt min.). @ -None done U/S interpreted by me (1pt. min.). @ -None done What testing was considered but not performed or refused? (CT, X-rays, U/S, labs)? Why? @ -None What meds were considered but not given or refused? Why? @ -None Did you discuss the management of the patient with other professionals (prof mccarthy i.e. , PA, TUBE BENDING MACHINE OPERATOR, lab, RT, psych nurse, director of social services, manager digital, teacher, public service officer, gearcase assembler)? Give summary @ -I spoke with Dr. ricketts after she agreed to admit the patient admitted the patient I wrote admitting orders Was smoking cessation discussed for >3mins.? @ -No Was critical care preformed (if so, how long)? @ -No Were there social determinants of health that impacted care today? How? (Homelessness, low income, unemployed, alcoholism, drug addiction, transpo rtation, low edu. Level, literacy, decrease access to med. care, fpc, rehab)? @ -No Was there de-escalation of care discussed even if they declined (Discuss DNR or withdrawal of care, Hospice)? DNR status @ -No What co-morbidities impacted this encounter? (DM, HTN, Smoking, COPD, CAD, Cancer, CVA, ARF, Chemo, Hep., AIDS, mental health diagnosis, sleep apnea, morbid obesity)? @ -None Was patient admitted / discharged? Hospital course, mention meds given and route, prescriptions, significant lab abnormalities, going to OR and other pertinent info. @ -he will be admitted to the hospital for chest pain. I spoke with Dr. ricketts he agreed to admit the patient admitted and I wrote admitting orders I continued and Nitropaste and aspirin on the floor I consult to cardiology. Undiagnosed new problem with uncertain prognosis? @ -No Drug Therapy requiring intensive monitoring for toxicity (Heparin, Nitro, In sulin, Cardizem)? @ -No Were any procedures done? @ -No Diagnosis/symptom? @ -Chest Pain Acute, or Chronic, or Acute on Chronic? @ -Acute Uncomplicated (without systemic symptoms) or Complicated (systemic symptoms)? @ -Complications Side effects of treatment? @ -No Exacerbation, Progression, or Severe Exacerbation? @ -No Poses a threat to life or bodily function? How? (Chest pain, [place], ID, pneumonia, PE, COPD, DKA, ARF, appy, cholecystitis, CVA, Diverticulitis, Homicidal, Suicidal, threat to staff... and all critical care pts) @ -Yes this could potentially lead to end organ dysfunction of the patient's having a heart attack from significant coronary artery disease. Diagnosis/symptom? @ -Acute on chronic renal failure Acute, or Chronic, or Acute on Chronic? @ -Acute on chronic Uncomplicated (without systemic symptoms) or Complicated (systemic symptoms)? @ -Uncomplicated Side effects of treatment? @ -none Exacerbation, Progression, or Severe Exacerbation] @ -no Poses a threat to life or bodily function? @ -no - Lab Data Result diagrams: 05/26/22 13:34 05/26/22 13:34 Lab Results 05/26/22 05/26/22 05/26/22 Range/Units 13:34 13:34 13:34 WBC 8.5 (3.8-10.6) k/uL RBC 3.44 L (4.30-5.90) m/uL Hgb 11.9 L (13.0-17.5) gm/dL Hct 34.0 L (39.0-53.0) % MCV 99.0 (80.0-100.0) fL MCH 34.6 (25.0-35.0) pg MCHC 35.0 (31.0-37.0) g/dL RDW 16.2 H (11.5-15.5) % Plt Count 157 (150-450) k/uL MPV 9.2 Neutrophils % 53 % Lymphocytes % 31 % Monocytes % 8 % Eosinophils % 3 % Basophils % 1 % Neutrophils # 4.5 (1.3-7.7) k/uL Lymphocytes # 2.6 (1.0-4.8) k/uL Monocytes # 0.7 (0-1.0) k/uL Eosinophils # 0.3 (0-0.7) k/uL Basophils # 0.1 (0-0.2) k/uL Poikilocytosis Slight Anisocytosis Slight Macrocytosis Slight PT 10.0 (9.0-12.0) sec INR 0.9 (<1.2) APTT 21.9 L (22.0-30.0) sec Sodium 137 (137-145) mmol/L Potassium 5.4 H (3.5-5.1) mmol/L Chloride 106 (98-107) mmol/L Carbon Dioxide 25 (22-30) mmol/L Anion Gap 6 mmol/L BUN 52 H (9-20) mg/dL Creatinine 3.01 H (0.66-1.25) mg/dL Est GFR (CKD-EPI)AfAm 22 (>60 ml/min/1.73 sqM) Est GFR (CKD-EPI)NonAf 19 (>60 ml/min/1.73 sqM) Glucose 105 H (74-99) mg/dL Calcium 8.7 (8.4-10.2) mg/dL Magnesium 2.2 (1.6-2.3) mg/dL Total Bilirubin 0.8 (0.2-1.3) mg/dL AST 28 (17-59) U/L ALT 30 (4-49) U/L Alkaline Phosphatase 62 (38-126) U/L Troponin I (0.000-0.034) ng/mL Total Protein 6.7 (6.3-8.2) g/dL Albumin 4.1 (3.5-5.0) g/dL 05/26/22 Range/Units 13:34 WBC (3.8-10.6) k/uL RBC (4.30-5.90) m/uL Hgb (13.0-17.5) gm/dL Hct (39.0-53.0) % MCV (80.0-100.0) fL MCH (25.0-35.0) pg MCHC (31.0-37.0) g/dL RDW (11.5-15.5) % Plt Count (150-450) k/uL MPV Neutrophils % % Lymphocytes % % Monocytes % % Eosinophils % % Basophils % % Neutrophils # (1.3-7.7) k/uL Lymphocytes # (1.0-4.8) k/uL Monocytes # (0-1.0) k/uL Eosinophils # (0-0.7) k/uL Basophils # (0-0.2) k/uL Poikilocytosis Anisocytosis Macrocytosis PT (9.0-12.0) sec INR (<1.2) APTT (22.0-30.0) sec Sodium (137-145) mmol/L Potassium (3.5-5.1) mmol/L Chloride (98-107) mmol/L Carbon Dioxide (22-30) mmol/L Anion Gap mmol/L BUN (9-20) mg/dL Creatinine (0.66-1.25) mg/dL Est GFR (CKD-EPI)AfAm (>60 ml/min/1.73 sqM) Est GFR (CKD-EPI)NonAf (>60 ml/min/1.73 sqM) Glucose (74-99) mg/dL Calcium (8.4-10.2) mg/dL Magnesium (1.6-2.3) mg/dL Total Bilirubin (0.2-1.3) mg/dL AST (17-59) U/L ALT (4-49) U/L Alkaline Phosphatase (38-126) U/L Troponin I <0.012 (0.000-0.034) ng/mL Total Protein (6.3-8.2) g/dL Albumin (3.5-5.0) g/dL Disposition Clinical Impression: Chest pain, Acute on chronic renal failure Disposition: ADMITTED IP TO THIS HOSP Referrals: Kris King MD [Primary Care Provider] - 1-2 days Time of Disposition: 15:13
--- NOTE | 2022-05-26 14:02 | XR ---
EXAMINATION TYPE: XR chest 2V DATE OF EXAM: 05/26/2022 COMPARISON: 07/04/19 HISTORY: Shortness of breath TECHNIQUE: Frontal and lateral views of the chest are obtained. FINDINGS: Scattered senescent parenchymal changes noted. Hyperinflation compatible with COPD. No evidence for infiltrate. No evidence for atelectasis. Heart size is stable. Mediastinal structures are stable and grossly unremarkable. No evidence for hilar prominence. Degenerative changes dorsal spine. IMPRESSION: 1. No evidence for acute pulmonary disease.
[2022-05-26 14:05] LABS: Albumin 4.1 g/dL (3.5-5.0); Calcium 8.7 mg/dL (8.4-10.2); Magnesium 2.2 mg/dL (1.6-2.3); Potassium 5.4 mmol/L (3.5-5.1); Total Bilirubin 0.8 mg/dL (0.2-1.3); Total Protein 6.7 g/dL (6.3-8.2)
[2022-05-26 14:06] LABS: INR 0.9 (<1.2)
[2022-05-26 14:11] LABS: Partial Thromboplastin Time 21.9 sec (22.0-30.0)
[2022-05-26] MEDS ORDERED: NITROGLYCERIN SL TABS 0.4 MG TAB SUBLINGUAL PRN (15:29)
[2022-05-26] MEDS ORDERED: DEXTROSE 50% SYRINGE 50 ML IVP PRN ×2 (19:04)
--- NOTE | 2022-05-26 19:05 | P.HPIM ---
History of Present Illness This is a pleasant 77 years old male with multiple medical problems Coronary Artery Disease status post CABG and stent placement , COPD, Diabetes Mellitus, GERD/Reflux, Hyperlipidemia, Hypertension, Osteoarthritis (OA), benign pros tatic hypertrophy, hypothyroidism, history of cardiomyopathy He was sent by his primary Dr. King to the hospital, he went today for a routine visit. Apparently he was complaining of from chest pain about 2 days ago and has been going on for another 2 days, mainly in the left side, Lc X implant by the patient has mild nonradiating. He denies dyspnea or coughing, no urinary or GI symptoms like vomiting diarrhea or abdominal pain, no dysuria, no headache dizziness weakness or numbness. He denies smoking alcohol or illicit drugs Blood pressure elevated on admission 175/93 currently 160/74, heart rate 62-67. Patient is afebrile. CBC showed mild anemia with hemoglobin 11.9, INR is 0.9 creatinine is elevated 3.0, potassium 5.4, liver enzymes not elevated Troponin 2 are negative less than 0.012. Chest x-ray: No acute process. EKG showing normal sinus rhythm at [address]-T changes in emergency room he received aspirin 325 mg and manufacturing finance manager was consulted. Review of Systems Review of systems CONSTITUTIONAL: No fever, no malaise, no fatigue. HEENT: No recent visual problems or hearing problems. Denied any sore throat. CARDIOVASCULAR: No orthopnea, PND, no palpitations, no syncope. PULMONARY: No shortness of breath, no cough, no hemoptysis. GASTROINTESTINAL: No diarrhea, no nausea, no vomiting, no abdominal pain. Normoactive bowel sounds. NEUROLOGICAL: No headaches, no weakness, no numbness. HEMATOLOGICAL: Denies any bleeding or petechiae. GENITOURINARY: Denies any burning micturition, frequency, or urgency. MUSCULOSKELETAL/RHEUMATOLOGICAL: Denies any joint pain, swelling, or any muscle pain. ENDOCRINE: Denies any polyuria or polydipsia. Past Medical History Past Medical History: Coronary Artery Disease (CAD), Cancer, Chest Pain / Angina, COPD, Diabetes Mellitus, GERD/Reflux, Hyperlipidemia, Hypertension, Myocardial Infarction ([place]), Osteoarthritis (OA), Prostate Disorder, Renal Disease, Thyroid Disorder Additional Past Medical History / Comment(s): PAST HX CARDIOMYOPATHY, RENAL CALCULUS, SQUAMOUS CELL SKIN CANCER (2017) MILD COPD, BPH HX OF COLON POLYPS, pancreatitis diverticulosis, thyroid nodules Last Myocardial Infarction Date:: 2011 History of Any Multi-Drug Resistant Organisms: None Reported Past Surgical History: Coronary Bypass/CABG, Heart Catheterization With Stent, Hernia Repair, Orthopedic Surgery Additional Past Surgical History / Comment(s): CABG X4-2006, STENT X1, UMBILICAL AND INCISIONAL HERNIA, RT SHOULDER ARTHROSCOPY, RT KNEE ARTHROSCOPY, colonoscopies Past Anesthesia/Blood Transfusion Reactions: No Reported Reaction Date of Last Stent Placement:: 2011 Past Psychological History: Anxiety Smoking Status: Former smoker Past Alcohol Use History: None Reported Past Drug Use History: None Reported - Past Family History Mother Family Medical History: Deep Vein Thrombosis (DVT) Brother(s) Family Medical History: Cancer Additional Family Medical History / Comment(s): COLON CANCER Sister(s) Family Medical History: Cancer Additional Family Medical History / Comment(s): LUNG CANCER Medications and Allergies Home Medications Medication Instructions Recorded Confirmed Type Aspirin 81 mg PO BID 11/08/13 05/26/22 History Nitroglycerin Sl Tabs [Nitrostat] 0.4 mg SL Q5M PRN 07/05/19 05/26/22 History Cholecalciferol (Vitamin D3) 125 mcg PO DAILY 10/25/19 05/26/22 History [Vitamin D3 (5000 Iu)] Multivit-Min/FA/Lycopen/Lutein 1 tab PO DAILY 10/25/19 05/26/22 History [Centrum Silver Tablet] Atorvastatin [Lipitor] 40 mg PO DAILY 09/26/20 05/26/22 History Torsemide [Demadex] 10 mg PO DAILY 09/26/20 05/26/22 History Glimepiride [Amaryl] 0.5 mg PO BID 11/20/20 05/26/22 History FLUoxetine HCL [PROzac] 10 mg PO DAILY 01/05/22 05/26/22 History allopurinoL 100 mg PO DAILY 01/05/22 05/26/22 History ALPRAZolam [Xanax] 1 mg PO HS 05/26/22 05/26/22 History Clopidogrel [Plavix] 75 mg PO DAILY 05/26/22 05/26/22 History Losartan [Cozaar] 25 mg PO DAILY 05/26/22 05/26/22 History Propranolol HCl [Propranolol HCl 80 mg PO DAILY 05/26/22 05/26/22 History ER] Allergies Allergy/AdvReac Type Severity Reaction Status Date / Time adhesive Allergy red skin Verified 01/06/22 07:29 bacitracin Allergy Rash/Hives Verified 01/06/22 07:29 [From Neosporin ([id number])] bacitracin zinc Allergy Rash/Hives Verified 01/06/22 07:29 [From Neosporin ([id number])] neomycin sulfate Allergy Rash/Hives Verified 01/06/22 07:29 [From Neosporin ([id number]-[id number])] polymyxin B Allergy Rash/Hives Verified 01/06/22 07:29 [From Neosporin ([id number])] Physical Exam Vitals: Vital Signs Temp Pulse Pulse Resp BP Pulse Ox 05/26/22 17:00 66 18 162/72 99 05/26/22 16:00 62 18 164/78 98 05/26/22 14:30 63 18 167/99 98 05/26/22 13:26 74 05/26/22 13:18 98.2 F 74 18 175/93 97 Intake and Output 05/26/22 05/26/22 05/26/22 06:59 14:59 22:59 Other: Weight 117.934 kg -GENERAL: The patient is alert and oriented x3, not in any acute distress. Well obese HEENT: Pupils are round and equally reacting to light. EOMI. No scleral icterus. No conjunctival pallor. Normocephalic, atraumatic. No pharyngeal erythema. No thyromegaly. CARDIOVASCULAR: S1 and S2 present. No murmurs, rubs, or gallops. PULMONARY: Chest is clear to auscultation, no wheezing or crackles. ABDOMEN: Soft, nontender, nondistended, normoactive bowel sounds. No palpable organomegaly. MUSCULOSKELETAL: No joint swelling or deformity. EXTREMITIES: No cyanosis, clubbing, or pedal edema. NEUROLOGICAL: Gross neurological examination did not reveal any focal deficits. SKIN: No rashes. no petechiae. Results CBC & Chem 7: 05/26/22 13:34 05/26/22 13:34 Labs: Abnormal Lab Results - Last 24 Hours (Table) 05/26/22 05/26/22 05/26/22 Range/Units 13:34 13:34 13:34 RBC 3.44 L (4.30-5.90) m/uL Hgb 11.9 L (13.0-17.5) gm/dL Hct 34.0 L (39.0-53.0) % RDW 16.2 H (11.5-15.5) % APTT 21.9 L (22.0-30.0) sec Potassium 5.4 H (3.5-5.1) mmol/L BUN 52 H (9-20) mg/dL Creatinine 3.01 H (0.66-1.25) mg/dL Glucose 105 H (74-99) mg/dL Assessment and Plan Assessment: Chest pain, rule out cardiac causes Acute on chronic kidney disease stage IV Hypertension Hyperlipidemia Diabetes mellitus History of coronary artery disease status post CABG and stent placement History of osteoarthritis History of benign prostatic hypertrophy History of cardiomyopathy Morbid Obesity with BMI of 42 Plan: We'll do serial troponin Continue with aspirin 325 mg. Continue with home dose of Plavix 75 mg Echocardiogram Cardiology consult Nephrology consult with his senior mechanical design engineer Dr. Daniel Check bladder scan Hold losartan and torsemide Continue with propranolol. Add Norvasc Continue with the glimepiride with insulin sliding scale Labs and medication were reviewed.. Continue same treatment. Continue with symptomatic treatment. Resume home medication. Monitor labs and vitals. DVT and GI prophylaxis. Further recommendations as per clinical course of the patient DVT prophylaxis: Subcutaneous heparin GI Prophylaxis: Pepcid PT/OT: Pending Prognosis is guarded
[2022-05-26] MEDS: NITROGLYCERIN OINT 1 INCH/GM PACKET TOPICAL SCH (19:36)
[2022-05-26] MEDS: FAMOTIDINE 20 MG/2 ML VIAL IV SCH (20:38)
[2022-05-26] MEDS: HEPARIN SODIUM,PORCINE/PF 5,000 UNIT/0.5 ML SYRINGE SQ SCH (20:38)
[2022-05-26] MEDS: ALPRAZolam 1 MG TAB PO SCH (20:38)
[2022-05-26] MEDS: amLODIPine 5 MG TAB PO SCH (20:38)
[2022-05-26 21:30] LABS: Glucose,Whole Blood 187 mg/dL (70-110)
[2022-05-26] MEDS: INSULIN ASPART (NovoLOG) 100 UNIT/ML VIAL SQ SCH (21:54)
[2022-05-26] MEDS: GLIMEPIRIDE 1 MG TAB PO SCH (21:54)
[2022-05-27] MEDS: NITROGLYCERIN OINT 1 INCH/GM PACKET TOPICAL SCH ×2 (01:27→06:40)
[2022-05-27 06:56] LABS: Glucose,Whole Blood 86 mg/dL (70-110)
[2022-05-27] MEDS: INSULIN ASPART (NovoLOG) 100 UNIT/ML VIAL SQ SCH ×4 (06:56→21:31)
[2022-05-27] MEDS ORDERED: AMINOPHYLLINE 500 MG/20 ML VIAL IV PRN (08:16)
[2022-05-27] MEDS ORDERED: CAFFEINE CITRATE 60 MG/3 ML VIAL IV PRN (08:16)
[2022-05-27] MEDS ORDERED: REGADENOSON 0.4 MG/5 ML SYRINGE IV PRN (08:16)
[2022-05-27] MEDS ORDERED: ASPIRIN 325 MG TAB PO SCH (09:00)
[2022-05-27 09:15] LABS: Basophils # (A) 0.04 X 10*3/uL (0.00-0.10); Basophils % (A) 0.5 %; Eosinophils # (A) 0.21 X 10*3/uL (0.04-0.35); Eosinophils % (A) 2.8 %; HCT 29.4 % (39.6-50.0); HGB 9.8 g/dL (13.0-17.0); Immature Grans, Automated 0.8 %; Lymphocytes # (A) 2.74 X 10*3/uL (0.90-5.00); Lymphocytes % (A) 36.5 %; MCH 34.6 pg (27.0-32.0); MCHC 33.3 g/dL (32.0-37.0); MCV 103.9 fL (80.0-97.0); Mean Platelet Volume 11.5 fL (9.5-12.2); Monocytes # (A) 0.97 X 10*3/uL (0.20-1.00); Monocytes % (A) 12.9 %; NRBC Per 100 WBC 0.3 /100 WBCS (0.0-0.0); Neutrophils # (A) 3.48 X 10*3/uL (1.80-7.70); Neutrophils % (A) 46.5 %; Platelet Count 134 X 10*3/uL (140-440); RBC 2.83 X 10*6/uL (4.40-5.60); RDW 14.9 % (11.5-14.5)
[2022-05-27 09:24] LABS: African American GFR (CKD) 21.5 (60.0-200.0); BUN/Creat Ratio 16.06 Ratio (12.00-20.00); Blood Urea Nitrogen 49.8 mg/dL (9.0-27.0); Calcium 8.7 mg/dL (8.7-10.3); Carbon Dioxide 23.9 mmol/L (20.0-27.5); Chloride 107 mmol/L (96-109); Chol/HDL Ratio 3.53 Ratio; Glucose 76 mg/dL (70-110); LDL Cholesterol,Calculated 33.4 mg/dL (0.0-131.0); Non-African American GFR(CKD) 18.5 (60.0-200.0); Potassium 4.8 mmol/L (3.5-5.5); Sodium 140 mmol/L (135-145)
--- NOTE | 2022-05-27 09:32 | P.CRDCN ---
History of Present Illness Consult date: 05/27/22 History of present illness: HISTORY OF PRESENT ILLNESS: This is a 77-year-old male with a past medical history significant for hypertension, hyperlipidemia, diabetes, coronary artery disease with previous four-vessel CABG in 2006 and stenting in 2011, and former nicotine dependence. Patient follows in the office with Dr. Bhatti. We have been asked to see the patient in consultation for chest pain. Patient examined at the bedside. Patient states he has been having some chest discomfort for the past few days. He states the pain comes and goes. It will last for a couple minutes and then go away on its own. He states nothing makes the pain better or worse. He denies taking any medication for the pain. He denies any radiation of the pain. Denies SOB. * EKG reveals sinus mechanism with no signs of acute ischemia. PVCs. * Chest xray negative for acute process * Laboratory data: WBC 8.5. Hemoglobin 11.9. Platelet count 157. Sodium 137. Potassium 5.4. BUN 52. Creatinine 3.01. Troponin negative 3 * Current home cardiac medications include aspirin 81 mg twice a day, Lipitor 40 mg daily, Plavix 75 mg daily, losartan 25 mg daily, Demadex 10 mg daily, and propanolol 80 mg daily * Most recent echocardiogram obtained in September 2021 revealed ejection fraction 50-55%, small hypokinetic area of the inferior wall at the base, moderate LVH, trace aortic regurgitation, mild mitral regurgitation, and mild tricuspid regurgitation REVIEW OF SYSTEMS: At the time of my exam: CONSTITUTIONAL: Denies fever or chills. HEENT: Denies blurred vision, vision changes, or eye pain. Denies hemoptysis CARDIOVASCULAR: Denies chest pain. Denies orthopnea. Denies PND. Denies palpitations RESPIRATORY: Denies shortness of breath. GASTROINTESTINAL: Denies abdominal pain. Denies nausea or vomiting. HEMATOLOGIC: Denies bleeding disorders. GENITOURINARY: Denies any blood in urine. SKIN: Denies pruitis. Denies rash. PHYSICAL EXAM: VITAL SIGNS: Reviewed. GENERAL: Well-developed in no acute distress. HEENT: Head is normocephalic. Pupils are equal, round. Sclerae anicteric. Mucous membranes of the mouth are moist. Neck supple. No JVD or thyromegaly LUNGS: Respirations even and unlabored. Lungs essentially clear to auscultation bilaterally. HEART: Regular rate and rhythm. S1 and S2 heard. ABDOMEN: Soft. Nondistended. Nontender. EXTREMITIES: Normal range of motion. No clubbing or cyanosis. Peripheral pulses intact. No lower extremity edema NEUROLOGIC: Awake and alert. Oriented x 3. ASSESSMENT: Chest pain, troponins negative 3 Coronary artery disease with previous stenting and 4 vessel CABG and subsequent stenting Hypertension Hyperlipidemia Diabetes Chronic kidney disease PLAN: An acute coronary event has been ruled out Resume home cardiac medications Patient to undergo Lay scan stress test today Further recommendations pending patient course Nurse practitioner note has been reviewed by physician. Signing provider agrees with the documented findings, assessment, and plan of care. Past Medical History Past Medical History: Coronary Artery Disease (CAD), Cancer, Chest Pain / Angina, COPD, Diabetes Mellitus, GERD/Reflux, Hyperlipidemia, Hypertension, Myocardial Infarction ([place]), Osteoarthritis (OA), Prostate Disorder, Renal Disease, Thyroid Disorder Additional Past Medical History / Comment(s): PAST HX CARDIOMYOPATHY, RENAL CALCULUS, SQUAMOUS CELL SKIN CANCER (2017) MILD COPD, BPH HX OF COLON POLYPS, pancreatitis diverticulosis, thyroid nodules Last Myocardial Infarction Date:: 2011 History of Any Multi-Drug Resistant Organisms: None Reported Past Surgical History: Coronary Bypass/CABG, Heart Catheterization With Stent, Hernia Repair, Orthopedic Surgery Additional Past Surgical History / Comment(s): CABG X4-2006, STENT X1, UMBILICAL AND INCISIONAL HERNIA, RT SHOULDER ARTHROSCOPY, RT KNEE ARTHROSCOPY, colonoscopies Past Anesthesia/Blood Transfusion Reactions: No Reported Reaction Date of Last Stent Placement:: 2011 Past Psychological History: Anxiety Smoking Status: Former smoker Past Alcohol Use History: None Reported Past Drug Use History: None Reported - Past Family History Mother Family Medical History: Deep Vein Thrombosis (DVT) Brother(s) Family Medical History: Cancer Additional Family Medical History / Comment(s): COLON CANCER Sister(s) Family Medical History: Cancer Additional Family Medical History / Comment(s): LUNG CANCER Medications and Allergies Home Medications Medication Instructions Recorded Confirmed Type Aspirin 81 mg PO BID 11/08/13 05/26/22 History Nitroglycerin Sl Tabs [Nitrostat] 0.4 mg SL Q5M PRN 07/05/19 05/26/22 History Cholecalciferol (Vitamin D3) 125 mcg PO DAILY 10/25/19 05/26/22 History [Vitamin D3 (5000 Iu)] Multivit-Min/FA/Lycopen/Lutein 1 tab PO DAILY 10/25/19 05/26/22 History [Centrum Silver Tablet] Atorvastatin [Lipitor] 40 mg PO DAILY 09/26/20 05/26/22 History Torsemide [Demadex] 10 mg PO DAILY 09/26/20 05/26/22 History Glimepiride [Amaryl] 0.5 mg PO BID 11/20/20 05/26/22 History FLUoxetine HCL [PROzac] 10 mg PO DAILY 01/05/22 05/26/22 History allopurinoL 100 mg PO DAILY 01/05/22 05/26/22 History ALPRAZolam [Xanax] 1 mg PO HS 05/26/22 05/26/22 History Clopidogrel [Plavix] 75 mg PO DAILY 05/26/22 05/26/22 History Losartan [Cozaar] 25 mg PO DAILY 05/26/22 05/26/22 History Propranolol HCl [Propranolol HCl 80 mg PO DAILY 05/26/22 05/26/22 History ER] Allergies Allergy/AdvReac Type Severity Reaction Status Date / Time adhesive Allergy red skin Verified 01/06/22 07:29 bacitracin Allergy Rash/Hives Verified 01/06/22 07:29 [From Neosporin ([id number])] bacitracin zinc Allergy Rash/Hives Verified 01/06/22 07:29 [From Neosporin ([id number])] neomycin sulfate Allergy Rash/Hives Verified 01/06/22 07:29 [From Neosporin ([id number]-[id number]-[id number])] polymyxin B Allergy Rash/Hives Verified 01/06/22 07:29 [From Neosporin ([id number])] Physical Exam Vitals: Vital Signs Temp Pulse Pulse Resp BP BP Pulse Ox 05/27/22 03:14 97.6 F 59 L 17 138/71 97 05/26/22 23:04 167/79 05/26/22 18:55 97.7 F 67 56 L 20 160/74 187/84 97 05/26/22 17:00 66 18 162/72 99 05/26/22 16:00 62 18 164/78 98 05/26/22 14:30 63 18 167/99 98 05/26/22 13:26 74 05/26/22 13:18 98.2 F 74 18 175/93 97 Intake and Output 05/26/22 05/27/22 05/27/22 22:59 06:59 14:59 Other: # Voids 1 1 Weight 117.934 kg Results 05/27/22 05:37 05/27/22 05:37 Cardiac Enzymes 05/26/22 05/26/22 05/26/22 Range/Units 13:34 13:34 16:36 AST 28 (17-59) U/L Troponin I <0.012 <0.012 (0.000-0.034) ng/mL 05/26/22 Range/Units 19:27 AST (17-59) U/L Troponin I <0.012 (0.000-0.034) ng/mL Coagulation 05/26/22 Range/Units 13:34 PT 10.0 (9.0-12.0) sec APTT 21.9 L (22.0-30.0) sec CBC 05/26/22 Range/Units 13:34 WBC 8.5 (3.8-10.6) k/uL RBC 3.44 L (4.30-5.90) m/uL Hgb 11.9 L (13.0-17.5) gm/dL Hct 34.0 L (39.0-53.0) % Plt Count 157 (150-450) k/uL Comprehensive Metabolic Panel 05/26/22 Range/Units 13:34 Sodium 137 (137-145) mmol/L Potassium 5.4 H (3.5-5.1) mmol/L Chloride 106 (98-107) mmol/L Carbon Dioxide 25 (22-30) mmol/L BUN 52 H (9-20) mg/dL Creatinine 3.01 H (0.66-1.25) mg/dL Glucose 105 H (74-99) mg/dL Calcium 8.7 (8.4-10.2) mg/dL AST 28 (17-59) U/L ALT 30 (4-49) U/L Alkaline Phosphatase 62 (38-126) U/L Total Protein 6.7 (6.3-8.2) g/dL Albumin 4.1 (3.5-5.0) g/dL Current Medications Generic Name Dose Route Start Last Admin Trade Name Freq PRN Reason Stop Dose Admin Allopurinol 100 mg 05/27/22 09:00 Allopurinol 100 Mg Tab PO DAILY [facility] Alprazolam 1 mg 05/26/22 21:00 05/26/22 20:38 Alprazolam 1 Mg Tab PO 1 mg HS KRISTOPHER Administration Amlodipine Besylate 5 mg 05/26/22 19:30 05/26/22 20:38 Amlodipine 5 Mg Tab PO 5 mg DAILY KRISTOPHER Administration Aspirin 325 mg 05/27/22 09:00 Aspirin 325 Mg Tab PO DAILY [facility] Atorvastatin Calcium 40 mg 05/27/22 09:00 Atorvastatin 40 Mg Tab PO DAILY [facility] Clopidogrel Bisulfate 75 mg 05/27/22 09:00 Clopidogrel 75 Mg Tab PO DAILY [facility] Dextrose/Water 25 ml 05/26/22 19:04 Dextrose 50% Syringe 50 Ml IVP PER PROTOCOL PRN Hypoglycemia Protocol Dextrose/Water 50 ml 05/26/22 19:04 Dextrose 50% Syringe 50 Ml IVP PER PROTOCOL PRN Hypoglycemia Protocol Famotidine 20 mg 05/26/22 21:00 05/26/22 20:38 Famotidine 20 Mg/2 Ml Vial IV 20 mg Q12HR [facility] Administration Fluoxetine HCl 10 mg 05/27/22 09:00 Fluoxetine Hcl 10 Mg Cap PO DAILY [facility] Glimepiride 0.5 mg 05/26/22 21:00 05/26/22 21:54 Glimepiride 1 Mg Tab PO 0.5 mg BID KRISTOPHER Administration Heparin Sodium (Porcine) 5,000 unit 05/26/22 21:00 05/26/22 20:38 Heparin Sodium,Porcine/Pf 5,000 Unit/0.5 Ml Syringe SQ 5,000 unit Q12HR [facility] Administration Insulin Aspart 0 unit 05/26/22 21:00 05/27/22 06:56 Insulin Aspart (Novolog) 100 Unit/Ml Vial SQ Not Given ACHS [facility] Protocol Nitroglycerin 0.4 mg 05/26/22 15:29 Nitroglycerin Sl Tabs 0.4 Mg Tab SUBLINGUAL Q5M PRN Chest Pain Nitroglycerin 1 inch 05/26/22 18:00 05/27/22 06:40 Nitroglycerin Oint 1 Inch/Gm Packet TOPICAL 1 inch Q6HR [facility] Administration Propranolol HCl 80 mg 05/27/22 09:00 Propranolol La 80 Mg Cap.Sa.24h PO DAILY [facility] Intake and Output 02/05/1705/27/22 05/27/22 22:59 06:59 14:59 Other: # Voids 1 1 Weight 117.934 kg 05/26/22 13:34 05/26/22 13:34
[2022-05-27 12:13] LABS: Glucose,Whole Blood 107 mg/dL (70-110)
[2022-05-27] MEDS: allopurinoL 100 MG TAB PO SCH (12:24)
[2022-05-27] MEDS: CLOPIDOGREL 75 MG TAB PO SCH (12:24)
[2022-05-27] MEDS: HEPARIN SODIUM,PORCINE/PF 5,000 UNIT/0.5 ML SYRINGE SQ SCH ×2 (12:24→21:33)
[2022-05-27] MEDS: ASPIRIN 81 MG PO SCH (12:24)
[2022-05-27] MEDS: ATORVASTATIN 40 MG TAB PO SCH (12:24)
[2022-05-27] MEDS: amLODIPine 5 MG TAB PO SCH (12:24)
[2022-05-27] MEDS: FLUoxetine HCL 10 MG CAP PO SCH (12:25)
[2022-05-27] MEDS: GLIMEPIRIDE 1 MG TAB PO SCH ×2 (12:25→21:32)
[2022-05-27] MEDS: PROPRANOLOL LA 80 MG CAP.SA.24H PO SCH (12:26)
[2022-05-27] MEDS: FAMOTIDINE 20 MG/2 ML VIAL IV SCH (12:42)
--- NOTE | 2022-05-27 12:54 | CA ---
Lexiscan Nuclear Stress Test Report Name: Jaya Klein Exam Date: 05/27/2022 10:43 Exam Location: [place] Stress Ht (in): 66 Wt (lb): 260 BSA: 2.24 Ordering Phys: Zabrina Navarrete Referring Phys: BEV,, Technologist: DAMION,, Age: 77 Gender: M : 1945 Procedure CPT: Indications: Reflex order-Stress test ICD-10 Codes: Patient History: chest pain and shortness of breath. History of ASCAD Medications: Meds past 24 hrs: Pretest Chest Pain: STRESS TEST Lexiscan Protocol Exercise Duration (min:sec): 01:[address] Depressions (mm): Angina Score: Boateng Score: Resting HR (bpm): 56 Peak HR (bpm): 74 Resting BP (mmHg): 166 / 77 Peak BP (mmHg): 197 / 96 MPHR: 144 Target HR: 122 % MPHR: 51 METS: 1.0 Total Dose: Peak Dose: Atropine: Double Product: 02366 BP Response: Stress Termination: INFUSION COMPLETE Stress Symptoms: HEADACHE Stress Summary: ECG ANALYSIS Resting ECG: Stress ECG: CONCLUSIONS Nondiagnostic electrocardiogram stress testing Dr. Sheng Black MD (Electronically Signed) Final Date: 27 May 2022 12:53
--- NOTE | 2022-05-27 13:53 | P.NPCON ---
History of Present Illness - Reason for Consult chronic renal failure - History of Present Illness Patient is a 77-year-old male with history of coronary artery disease status post coronary artery bypass surgery, COPD, hypertension, type 2 diabetes. Patient also has underlying chronic kidney disease NKF stage IV with baseline GFR close to 20 mL per minute. Patient is admitted to the hospital with compl aints of chest discomfort. Patient is being followed by cardiology. Troponins have been negative. Status post stress test Serum creatinine at 3.1 mg/dL with GFR at 18.5. Patient states that she had her ultrasound of the kidneys done as outpatient about a week ago. This was ordered through our office and patient was seen for follow-up recently. No complaints of abdominal pain nausea vomiting or diarrhea. No significant urinary symptoms. Review of Systems As per HPI Past Medical History Past Medical History: Coronary Artery Disease (CAD), Cancer, Chest Pain / Angina, COPD, Diabetes Mellitus, GERD/Reflux, Hyperlipidemia, Hypertension, Myocardial Infarction ([place]), Osteoarthritis ([place]), Prostate Disorder, Renal Disease, Thyroid Disorder Additional Past Medical History / Comment(s): PAST HX CARDIOMYOPATHY, RENAL CALCULUS, SQUAMOUS CELL SKIN CANCER (2017) MILD COPD, BPH HX OF COLON POLYPS, pancreatitis diverticulosis, thyroid nodules Last Myocardial Infarction Date:: 2011 History of Any Multi-Drug Resistant Organisms: None Reported Past Surgical History: Coronary Bypass/CABG, Heart Catheterization With Stent, Hernia Repair, Orthopedic Surgery Additional Past Surgical History / Comment(s): CABG X4-2006, STENT X1, UMBILICAL AND INCISIONAL HERNIA, RT SHOULDER ARTHROSCOPY, RT KNEE ARTHROSCOPY, colonoscopies Past Anesthesia/Blood Transfusion Reactions: No Reported Reaction Date of Last Stent Placement:: 2011 Past Psychological History: Anxiety Smoking Status: Former smoker Past Alcohol Use History: None Reported Past Drug Use History: None Reported - Past Family History Mother Family Medical History: Deep Vein Thrombosis (DVT) Brother(s) Family Medical History: Cancer Additional Family Medical History / Comment(s): COLON CANCER Sister(s) Family Medical History: Cancer Additional Family Medical History / Comment(s): LUNG CANCER Medications and Allergies Home Medications Medication Instructions Recorded Confirmed Type Aspirin 81 mg PO BID 11/08/13 05/26/22 History Nitroglycerin Sl Tabs [Nitrostat] 0.4 mg SL Q5M PRN 07/05/19 05/26/22 History Cholecalciferol (Vitamin D3) 125 mcg PO DAILY 10/25/19 05/26/22 History [Vitamin D3 (5000 Iu)] Multivit-Min/FA/Lycopen/Lutein 1 tab PO DAILY 10/25/19 05/26/22 History [Centrum Silver Tablet] Atorvastatin [Lipitor] 40 mg PO DAILY 09/26/20 05/26/22 History Torsemide [Demadex] 10 mg PO DAILY 09/26/20 05/26/22 History Glimepiride [Amaryl] 0.5 mg PO BID 11/20/20 05/26/22 History FLUoxetine HCL [PROzac] 10 mg PO DAILY 01/05/22 05/26/22 History allopurinoL 100 mg PO DAILY 01/05/22 05/26/22 History ALPRAZolam [Xanax] 1 mg PO HS 05/26/22 05/26/22 History Clopidogrel [Plavix] 75 mg PO DAILY 05/26/22 05/26/22 History Losartan [Cozaar] 25 mg PO DAILY 05/26/22 05/26/22 History Propranolol HCl [Propranolol HCl 80 mg PO DAILY 05/26/22 05/26/22 History ER] Allergies Allergy/AdvReac Type Severity Reaction Status Date / Time adhesive Allergy red skin Verified 01/06/22 07:29 bacitracin Allergy Rash/Hives Verified 01/06/22 07:29 [From Neosporin ([id number])] bacitracin zinc Allergy Rash/Hives Verified 01/06/22 07:29 [From Neosporin ([id number])] neomycin sulfate Allergy Rash/Hives Verified 01/06/22 07:29 [From Neosporin ([id number])] polymyxin B Allergy Rash/Hives Verified 01/06/22 07:29 [From Neosporin ([id number])] Physical Exam Vitals: Vital Signs Temp Pulse Pulse Pulse Resp BP BP 05/27/22 07:00 97.9 F 60 17 151/73 05/27/22 03:14 97.6 F 59 L 17 05/26/22 23:04 05/26/22 18:55 97.7 F 67 56 L 20 160/74 05/26/22 17:00 66 18 162/72 05/26/22 16:00 62 18 164/78 05/26/22 14:30 63 18 167/99 BP Pulse Ox 05/27/22 07:00 97 05/27/22 03:14 138/71 97 05/26/22 23:04 167/79 05/26/22 18:55 187/84 97 05/26/22 17:00 99 05/26/22 16:00 98 05/26/22 14:30 98 Intake and Output 05/26/22 05/27/22 05/27/22 22:59 06:59 14:59 Other: # Voids 1 1 Weight 117.934 kg Awake, comfortable, no acute distress Alert oriented 3 Examination of the heart S1 and S2 Examination lungs good air 3 bilaterally occasional wheezing is heard Abdomen is soft nontender Examination of lower extremities shows edema 1+ bilaterally REGIONAL AIRLINE PILOT exam grossly intact Results - Lab Results Most recent lab results Calcium 8.7 mg/dL (8.7-10.3) 05/27/22 05:37 Magnesium 2.2 mg/dL (1.6-2.3) 05/26/22 13:34 05/27/22 05:37 05/27/22 05:37 Assessment and Plan Assessment: 1. Chronic kidney disease NKF stage IV secondary to diabetic kidney disease and nephrosclerosis with baseline creatinine in the high 2s 2. Chest pain with underlying history of Coronary artery disease. Troponins are negative. Patient is status post stress test 3. Anemia of chronic disease 4. Hypertension maintained on angiotensin receptor blockers at home, currently on hold Plan: I will check results of ultrasound done as outpatient 1 week ago. Can resume Cozaar but at a decreased dose. Repeat labs in a.m. Continue Follow-up as outpatient
--- NOTE | 2022-05-27 14:00 | NM ---
EXAMINATION TYPE: NM stress lexiscan cardiolite DATE OF EXAM: 05/27/2022 COMPARISON: 07/05/2019 HISTORY: Rest pain TECHNIQUE: After the intravenous administration of 10.5 mCi Tc 99m Sestamibi - Cardiolite resting SP ECT images acquired 60 minutes post injection. The patient received 0.4mg Lexiscan, 26.6 mCi Tc 99m Sestamibi - Stress images obtained [address] injection FINDINGS: Review of stress and rest SPECT images demonstrates no distinct perfusion abnormality. Gated analysi s shows normal wall motion with an estimated left ventricular ejection fraction of 48 %. IMPRESSION: No scintigraphic evidence for reversible ischemia. Ejection fraction 48% correlate clinically.
--- NOTE | 2022-05-27 14:27 | P.PN ---
Subjective This is a pleasant 77 years old male with multiple medical problems Coronary Artery Disease status post CABG and stent placement , COPD, Diabetes Mellitus, GERD/Reflux, Hyperlipidemia, Hypertension, Osteoarthritis (OA), benign prostatic hypertrophy, hypothyroidism, history of cardiomyopathy He was sent by his primary Dr. King to the hospital, he went today for a routine visit. Apparently he was complaining of from chest pain about 2 days a go and has been going on for another 2 days, mainly in the left side, Lc X implant by the patient has mild nonradiating. He denies dyspnea or coughing, no urinary or GI symptoms like vomiting diarrhea or abdominal pain, no dysuria, no headache dizziness weakness or numbness. He denies smoking alcohol or illicit drugs Blood pressure elevated on admission 175/93 currently 160/74, heart rate 62-67. Patient is afebrile. CBC showed mild anemia with hemoglobin 11.9, INR is 0.9 creatinine is elevated 3.0, potassium 5.4, liver enzymes not elevated Troponin 2 are negative less than 0.012. Chest x-ray: No acute process. EKG showing normal sinus rhythm at [address]-T changes in emergency room he received aspirin 325 mg and forensic accountant was consulted. 05/27/2022 Patient stress test came back negative the patient denies any chest pain or dyspnea He feels generally weak Creatinine is still elevated and slightly worse today 3.1, nephrology input is appreciated. Check a bladder scan, check the result of renal ultrasound Resume a renal diet Objective - Vital Signs Vital signs: Vital Signs Temp 97.9 F 05/27/22 07:00 Pulse 60 05/27/22 07:00 Resp 17 05/27/22 07:00 BP 151/73 05/27/22 07:00 Pulse Ox 97 05/27/22 07:00 FiO2 Intake & Output 05/26/22 05/27/22 05/27/22 18:59 06:59 18:59 Weight 117.934 kg Other: # Voids 1 - Exam GENERAL: The patient is alert and oriented x3, not in any acute distress. Well developed, well nourished. HEENT: Pupils are round and equally reacting to light. EOMI. No scleral icterus. No conjunctival pallor. Normocephalic, atraumatic. No pharyngeal erythema. No thyromegaly. CARDIOVASCULAR: S1 and S2 present. No murmurs, rubs, or gallops. PULMONARY: Chest is clear to auscultation, no wheezing or crackles. ABDOMEN: Soft, nontender, nondistended, normoactive bowel sounds. No palpable organomegaly. MUSCULOSKELETAL: No joint swelling or deformity. EXTREMITIES: No cyanosis, clubbing, or pedal edema. NEUROLOGICAL: Gross neurological examination did not reveal any focal deficits. SKIN: No rashes. no petechiae. - Labs CBC & Chem 7: 05/27/22 05:37 05/27/22 05:37 Labs: Abnormal Lab Results - Last 24 Hours (Table) 05/26/22 05/27/22 05/27/22 Range/Units 21:28 05:37 05:37 RBC 2.83 L (4.40-5.60) X 10*6/uL Hgb 9.8 L (13.0-17.0) g/dL Hct 29.4 L (39.6-50.0) % MCV 103.9 H (80.0-97.0) fL MCH 34.6 H (27.0-32.0) pg RDW 14.9 H (11.5-14.5) % Plt Count 134 L (140-440) X 10*3/uL Absolute Nucleated RBC 0.02 H (0.00-0.00) X 10*3/uL Immature Gran # 0.06 H (0.00-0.04) X 10*3/uL NRBC/100 WBC Diff 0.3 H (0.0-0.0) /100 WBCS Anion Gap 9.10 L (10.00-18.00) mmol/L BUN 49.8 H (9.0-27.0) mg/dL Creatinine 3.1 H (0.6-1.5) mg/dL Est GFR (CKD-EPI)AfAm 21.5 L (60.0-200.0) Est GFR (CKD-EPI)NonAf 18.5 L (60.0-200.0) POC Glucose (mg/dL) 187 H (70-110) mg/dL Triglycerides 164.00 H (0.00-149.00) mg/dL HDL Cholesterol 26.20 L (40.00-60.00) mg/dL Assessment and Plan Assessment: Chest pain, resolved. 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 Daniel Check bladder scan Hold losartan and torsemide Continue with propranolol. Add Norvasc Continue with the glimepiride with insulin sliding scale Labs and medication were reviewed.. Continue same treatment. Continue with symptomatic treatment. Resume home medication. Monitor labs and vitals. DVT and GI prophylaxis. Further recommendations as per clinical course of the patient DVT prophylaxis: Subcutaneous heparin GI Prophylaxis: Pepcid PT/OT: Pending Not quite ready for discharge, monitor renal function
[2022-05-27 14:51] LABS: Appearance,Urine Clear (Clear); Bilirubin,Urine Negative (Negative); Blood,Urine Negative (Negative); Color,Urine Light Yellow; Glucose,Urine (UA) Negative (Negative); Ketones,Urine Negative (Negative); Leukocyte Esterase,Urine Negative (Negative); Mucus,Urine Rare /hpf; Nitrite,Urine Negative (Negative); Protein,Urine 3+ (Negative); RBC,Urine 1 /hpf (0-5); Specific Gravity,Urine 1.014 (1.001-1.035); Squamous Epithelial Cell,Urine <1 /hpf (0-4); Urobilinogen,Urine <2.0 mg/dL (<2.0); WBC,Urine 1 /hpf (0-5)
[2022-05-27 17:21] LABS: Glucose,Whole Blood 146 mg/dL (70-110)
[2022-05-27] MEDS ORDERED: FAMOTIDINE 20 MG/2 ML VIAL IV SCH (21:00)
[2022-05-27 21:27] LABS: Glucose,Whole Blood 140 mg/dL (70-110)
[2022-05-27] MEDS: ALPRAZolam 1 MG TAB PO SCH (21:32)
[2022-05-28 06:20] LABS: Glucose,Whole Blood 98 mg/dL (70-110)
[2022-05-28] MEDS: INSULIN ASPART (NovoLOG) 100 UNIT/ML VIAL SQ SCH ×2 (06:31→12:34)
[2022-05-28] MEDS: GLIMEPIRIDE 1 MG TAB PO SCH (08:23)
[2022-05-28] MEDS: FLUoxetine HCL 10 MG CAP PO SCH (08:24)
[2022-05-28] MEDS: HEPARIN SODIUM,PORCINE/PF 5,000 UNIT/0.5 ML SYRINGE SQ SCH (08:24)
[2022-05-28] MEDS: allopurinoL 100 MG TAB PO SCH (08:24)
[2022-05-28] MEDS: PROPRANOLOL LA 80 MG CAP.SA.24H PO SCH (08:24)
[2022-05-28] MEDS: CLOPIDOGREL 75 MG TAB PO SCH (08:24)
[2022-05-28] MEDS: amLODIPine 5 MG TAB PO SCH (08:24)
[2022-05-28] MEDS: ASPIRIN 81 MG PO SCH (08:24)
[2022-05-28] MEDS: ATORVASTATIN 40 MG TAB PO SCH (08:24)
[2022-05-28 08:53] VITALS: RESP 16
[2022-05-28 09:43] LABS: African American GFR (CKD) 20.7 (60.0-200.0); Anion Gap 11.3 mmol/L (10.00-18.00); BUN/Creat Ratio 16.09 Ratio (12.00-20.00); Blood Urea Nitrogen 51.5 mg/dL (9.0-27.0); Calcium 8.7 mg/dL (8.7-10.3); Carbon Dioxide 23.7 mmol/L (20.0-27.5); Non-African American GFR(CKD) 17.8 (60.0-200.0); Potassium 4.9 mmol/L (3.5-5.5)
[2022-05-28 12:26] LABS: Glucose,Whole Blood 138 mg/dL (70-110)
[2022-05-28 12:48] LABS: African American GFR (CKD) 21 (>60 ml/min/1.73 sqM); Anion Gap 5 mmol/L; Blood Urea Nitrogen 55 mg/dL (9-20); Calcium 8.5 mg/dL (8.4-10.2); Carbon Dioxide 24 mmol/L (22-30); Chloride 106 mmol/L (98-107); Glucose 137 mg/dL (74-99); Non-African American GFR(CKD) 18 (>60 ml/min/1.73 sqM); Potassium 4.8 mmol/L (3.5-5.1); Sodium 135 mmol/L (137-145)
--- NOTE | 2022-05-28 13:34 | P.PN ---
Subjective Patient is seen for follow-up for chronic kidney disease. Patient was admitted to the hospital with chest discomfort. He is status post stress test which shows no evidence of reversible ischemia. Patient's renal function has deteriorated slightly over the past month or so. Serum creatinine however is staying at 3.1 mg/dL. Recent ultrasound done as outpatient in about a week ago was negative for obstructive uropathy. Patient wants to go home. No significant complaints today. 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 - Labs CBC & Chem 7: 05/27/22 05:37 05/28/22 12:01 Labs: Abnormal Lab Results - Last 24 Hours (Table) 05/27/22 05/27/22 05/27/22 Range/Units 14:20 17:19 21:26 Sodium (137-145) mmol/L BUN (9.0-27.0) mg/dL Creatinine (0.6-1.5) mg/dL Est GFR (CKD-EPI)AfAm (60.0-200.0) Est GFR (CKD-EPI)NonAf (60.0-200.0) Glucose (74-99) mg/dL POC Glucose (mg/dL) 146 H 140 H (70-110) mg/dL Urine Protein 3+ H (Negative) Urine Mucus Rare H (None) /hpf 05/28/22 05/28/22 05/28/22 Range/Units 04:44 12:01 12:25 Sodium 135 L (137-145) mmol/L BUN 51.5 H 55 H (9.0-27.0) mg/dL Creatinine 3.2 H 3.15 H (0.6-1.5) mg/dL Est GFR (CKD-EPI)AfAm 20.7 L (60.0-200.0) Est GFR (CKD-EPI)NonAf 17.8 L (60.0-200.0) Glucose 137 H (74-99) mg/dL POC Glucose (mg/dL) 138 H (70-110) mg/dL Urine Protein (Negative) Urine Mucus (None) /hpf Assessment and Plan Assessment: 1. Chronic kidney disease NKF stage IV secondary to diabetic kidney disease and nephrosclerosis with baseline creatinine in the high 2s. Now staying around 3- 3.1 mg/dL. Recent ultrasound done as outpatient shows no evidence of hydronephrosis. Angiotensin receptor blockers currently on hold. Blood pressure is not low. Patient can be discharged on half the dose of losartan. 2. Chest pain with underlying history of Coronary artery disease. Troponins are negative. Patient is status post stress test 3. Anemia of chronic disease 4. Hypertension maintained on angiotensin receptor blockers at home, currently on hold Plan: Okay for discharge from nephrology standpoint Can resume Cozaar but at half the dose. Continue Follow-up as outpatient
[2022-05-28 16:12] VITALS: BP 159/82; PULSE 56; TEMP 98.1
== END 2022-05-28 15:46 | disposition home or self-care (01) | DRG 683 ==
LOC: EC 13:07 → 6NMEDSUR 15:29 → OBSVTOIN 05-28 09:56
PROVIDERS: ADMIT Internal Medicine; ATTEND Internal Medicine
DX: I12.9 Hypertensive chronic kidney disease with stage 1 through stage 4 chronic kidney disease, or unspecified chronic kidney disease (principal); I42.9 Cardiomyopathy, unspecified; N18.4 Chronic kidney disease, stage 4 (severe); Z68.41 Body mass index [BMI] 40.0-44.9, adult; N17.9 Acute kidney failure, unspecified; F41.9 Anxiety disorder, unspecified; E78.00 Pure hypercholesterolemia, unspecified; J44.9 Chronic obstructive pulmonary disease, unspecified; K57.90 Diverticulosis of intestine, part unspecified, without perforation or abscess without bleeding; I25.119 Atherosclerotic heart disease of native coronary artery with unspecified angina pectoris; E66.01 Morbid (severe) obesity due to excess calories; E11.22 Type 2 diabetes mellitus with diabetic chronic kidney disease; E03.9 Hypothyroidism, unspecified; D63.8 Anemia in other chronic diseases classified elsewhere; I25.2 Old myocardial infarction; M19.90 Unspecified osteoarthritis, unspecified site; N40.0 Benign prostatic hyperplasia without lower urinary tract symptoms; Z86.010 Personal history of colon polyps; I08.3 Combined rheumatic disorders of mitral, aortic and tricuspid valves; I49.3 Ventricular premature depolarization; K21.9 Gastro-esophageal reflux disease without esophagitis; Z79.02 Long term (current) use of antithrombotics/antiplatelets; Z79.82 Long term (current) use of aspirin; Z79.899 Other long term (current) drug therapy; Z85.828 Personal history of other malignant neoplasm of skin; Z85.528 Personal history of other malignant neoplasm of kidney; Z87.19 Personal history of other diseases of the digestive system; Z87.442 Personal history of urinary calculi; Z95.1 Presence of aortocoronary bypass graft; Z95.5 Presence of coronary angioplasty implant and graft; Z80.1 Family history of malignant neoplasm of trachea, bronchus and lung; Z88.8 Allergy status to other drugs, medicaments and biological substances; Z91.048 Other nonmedicinal substance allergy status; Z79.890 Hormone replacement therapy; Z87.891 Personal history of nicotine dependence; Z79.84 Long term (current) use of oral hypoglycemic drugs
CPT/HCPCS: 36415; 71046; 78452; 80048; 80053; 80061; 81001; 83735; 84484; 85025; 85610; 85730; 93005; 93017; 99285

== ENCOUNTER → 2022-09-21 | Outpatient (CLI) | payer MEDICARE, BC ==
--- NOTE | 2022-09-21 13:15 | XR ---
EXAM TYPE: LUMBAR SPINE X RAY SERIES COMPARISON: NONE HISTORY: Back pain TECHNIQUE: 3 views are submitted. FINDINGS: Alignment is anatomic. The pedicles are intact. The transverse processes are intact. There is no s pondylolisthesis. Hypertrophic and degenerative changes of the spine. There is facet arthropathy L4- 5 and L5-S1. Vascular calcifications of the aorta. IMPRESSION: 1. Advanced facet arthropathy L4-5 and L5-S1 likely result in foraminal impingement. Recommend follow -up MRI..
== END | disposition home or self-care (01) ==
LOC: RADXRMAIN 12:34
PROVIDERS: ATTEND Family Medicine
DX: M47.816 Spondylosis without myelopathy or radiculopathy, lumbar region (principal); M47.817 Spondylosis without myelopathy or radiculopathy, lumbosacral region; M99.73 Connective tissue and disc stenosis of intervertebral foramina of lumbar region
CPT/HCPCS: 72100

== ENCOUNTER → 2022-09-21 | Outpatient (CLI) | payer MEDICARE, BC ==
--- NOTE | 2022-09-21 13:16 | US ---
EXAMINATION TYPE: US thyroid st tissue head/neck DATE OF EXAM: 09/21/2022 COMPARISON: 12/11/2020, 01/08/2022. CLINICAL INDICATION: Male, 77 years old with history of E04.1 NONTOXIC SINGLE THYROID NODULE; thyroid nodules GLAND SIZE: Right Lobe: 4.2x1.7x2.0 cm Overall Parenchyma: homogenous Left Lobe: 5.6x2.6x2.5 cm Overall Parenchyma: homogeneous Isthmus Thickness: 0.5 cm NODULES RIGHT: # of nodules measured on right: 1 1. 1.2 X 0.7 x 1.0 cm, mid lateral, Prior size: 1.1 x 0.7 x 0.6 cm TIRADS Score: 4 TIRADS Category 4: Moderately Suspicious Composition: Solid or almost completely solid (2 points). Echogenicity: Hypoechoic (2 points). Shape: Wider than tall (0 points). Margin: Smooth (0 points). Echogenic foci: None or large comet-tail artifacts (0 points) Recommendation: If >1.5cm: FNA; If >1cm: Follow up at 1,2, 3,5 years LEFT: # of nodules measured on left: 1 1. 3.2 X 2.1 x 2.0 cm, lower mid, Prior size: 2.7 x 2.2 x 2.1 cm TIRADS Score: 7 TIRADS Category 5: Highly Suspicious Composition: Solid or almost completely solid (2 points). Echogenicity: Hypoechoic (2 points). Shape: Wider than tall (0 points). Margin: Smooth (0 points). Echogenic foci: Punctate echogenic foci (3 points) Recommendation: If >1cm: FNA; If >0.5cm: Follow annually for 5 years This was previously biopsied in 2020. Continued attention on follow-up. ISTHMUS: # of nodules measured in the isthmus: 0 Bilateral neck scanned, no evidence of lymphadenopathy. IMPRESSION: Thyroid nodules and recommendations as described above.
== END | disposition home or self-care (01) ==
LOC: RADUSWWP 11:41
PROVIDERS: ATTEND Otolaryngology
DX: E04.2 Nontoxic multinodular goiter (principal)
CPT/HCPCS: 76536

== ENCOUNTER → 2022-10-27 | Outpatient (CLI) | payer MEDICARE, BC ==
--- NOTE | 2022-10-27 15:47 | US ---
EXAMINATION TYPE: US kidneys/renal and bladder DATE OF EXAM: 10/27/2022 COMPARISON: US 2020 CLINICAL INDICATION: Male, 77 years old with history of N18.4 CHRONIC KIDNEY DISEASE, STAGE 4; EXAM MEASUREMENTS: Right Kidney: 10.0 x 5.4 x 4.6 cm Left Kidney: 10.5 x 4.7 x 6.4 cm Right Kidney: multiple cortical cysts with largest superior pole = 1.6cm Left Kidney: 6.3cm cystic area mid pole Bladder: wnl Bilateral Jets seen: no There is no evidence for hydronephrosis at this point in time. No nephrolithiasis is seen. No solid masses are identified. The urinary bladder is anechoic. Bilateral ureteral jets are seen. IMPRESSION: Renal cortical cysts.
== END | disposition home or self-care (01) ==
LOC: RADUSWWP 15:13
PROVIDERS: ATTEND Internal Medicine
DX: N28.1 Cyst of kidney, acquired (principal); N18.4 Chronic kidney disease, stage 4 (severe)
CPT/HCPCS: 76770

== ENCOUNTER → 2023-04-11 | Outpatient (CLI) | payer MEDICARE, BC ==
--- NOTE | 2023-04-11 14:06 | XR ---
EXAMINATION TYPE: XR cervical spine comp DATE OF EXAM: 04/11/2023 COMPARISON: NONE HISTORY: None TECHNIQUE: Four views are submitted. FINDINGS: The odontoid is intact. There are no compression deformities. The prevertebral soft tissue structur es are within normal limits. Sternotomy wires are seen calcifications in the soft tissues of the nec k likely vascular. Moderate degenerative disc disease C5-6 and C6-C7 with facet arthropathy at multip le levels. Foraminal encroachment at C3-4, C5-6 and C6-C7. High grade one anterolisthesis C3-C4 and C 4-C5. IMPRESSION: 1. Multilevel degenerative disc disease and facet arthropathy most marked at C5-6 and C6-C7. 2. Multilevel foraminal encroachment.
== END | disposition home or self-care (01) ==
LOC: RADXRMAIN 13:46
PROVIDERS: ATTEND Family Medicine
DX: M47.812 Spondylosis without myelopathy or radiculopathy, cervical region (principal); M50.323 Other cervical disc degeneration at C6-C7 level; M50.322 Other cervical disc degeneration at C5-C6 level
CPT/HCPCS: 72050

== ENCOUNTER → 2023-08-29 | Outpatient (CLI) | payer MEDICARE, BC ==
--- NOTE | 2023-08-29 15:54 | US ---
EXAMINATION TYPE: US thyroid st tissue head/neck DATE OF EXAM: 08/29/2023 COMPARISON: US 09/21/2022 most recent. CLINICAL INDICATION: Male, 78 years old with history of E04.1 THYROID NODULE; Nodule GLAND SIZE: Right Lobe: 4.3 x 2.0 x 2.0 cm Overall Parenchyma: homogeneous Left Lobe: 5.4 x 2.4 x 2.4 cm Overall Parenchyma: homogeneous Isthmus Thickness: 0.29 cm NODULES RIGHT: # of nodules measured on right: 1 1. 1.0 X 0.8 x 0.8 cm, mid lateral, Prior size: 1.2 x 0.7 x 1.0 cm TIRADS Score: 5 TIRADS Category 4: Composition: Solid or almost completely solid (2 points). Echogenicity: Very hypoechoic (3 points). Shape: Wider than tall (0 points). Margin: Smooth (0 points). Echogenic foci: None or large comet-tail artifacts (0 points) Recommendation: If >1.5cm: FNA; If >1cm: Follow up at 1,2, 3,5 years LEFT: # of nodules measured on left: 1 1. 3.1 X 2.3 x 2.3 cm, lower mid, Prior size: 3.2 x 2.1 x 2.0 cm TIRADS Score: 4 TIRADS Category 4: Composition: Solid or almost completely solid (2 points). Echogenicity: Hypoechoic (2 points). Shape: Wider than tall (0 points). Margin: Smooth (0 points). Echogenic foci: None or large comet-tail artifacts (0 points) Recommendation: If >1.5cm: FNA; If >1cm: Follow up at 1,2, 3,5 years ISTHMUS: # of nodules measured in the isthmus: 0 Bilateral neck scanned, no evidence of lymphadenopathy. IMPRESSION: 1. Right thyroid nodule which meets criteria for follow-up. 2. Left thyroid nodule that needs criteria for FNA if not already performed.
== END | disposition home or self-care (01) ==
LOC: RADUSWWP 13:08
PROVIDERS: ATTEND Otolaryngology
DX: E04.2 Nontoxic multinodular goiter (principal)
CPT/HCPCS: 76536

== ENCOUNTER → 2023-09-29 | Outpatient (CLI) | payer MEDICARE, BC ==
--- NOTE | 2023-09-29 12:38 | US ---
EXAMINATION TYPE: US kidneys/renal and bladder DATE OF EXAM: 09/29/2023 COMPARISON: 10/27/2022 CLINICAL INDICATION: Male, 78 years old with history of N18.4 CKD,STAGE 4; EXAM MEASUREMENTS: Right Kidney: 9.8 x 5.2 x 4.7 cm Left Kidney: 10.4 x 4.3 x 5.7 cm Right Kidney: multiple cysts, largest measures 1.5cm Left Kidney: multiple cysts, largest measures 5.8cm Bladder: not fully distended, appears wnl as seen Bilateral Jets seen: no Normal Post Void Residual: yes - 13.2ml IMPRESSION: 1. Mild renal atrophy and increased echotexture of the cortices consistent with medical renal disease . 2. No renal calcification or hydronephrosis. 3. Multiple simple cortical cysts of the kidneys largest on the right is 1.5 cm and the largest on th e left is 5.8 cm. 4. Unremarkable urinary bladder
== END | disposition home or self-care (01) ==
LOC: RADUSWWP 11:21
PROVIDERS: ATTEND Internal Medicine
DX: N26.1 Atrophy of kidney (terminal) (principal); N18.4 Chronic kidney disease, stage 4 (severe); N28.1 Cyst of kidney, acquired
CPT/HCPCS: 76770

== ENCOUNTER 2024-07-31 05:38 | Day surgery (SDC) | payer MEDICARE, BC ==
[2024-07-27 14:04] VITALS: BMI 34.4
[2024-07-31] MEDS: SODIUM CHLORIDE 0.9% 1,000 ML IV SCH (06:08)
[2024-07-31] MEDS: IV FLUID CONTINUATION 1,000 ML IV ONE (06:08)
[2024-07-31 06:18] LABS: Glucose,Whole Blood 184 mg/dL (70-110)
[2024-07-31 06:22] VITALS: RESP 16; TEMP 97.1
[2024-07-31 06:52] LABS: African American GFR (CKD) 14 (>60 ml/min/1.73 sqM); Anion Gap 6 mmol/L; Blood Urea Nitrogen 37 mg/dL (9-20); Calcium 9.3 mg/dL (8.4-10.2); Carbon Dioxide 34 mmol/L (22-30); Chloride 94 mmol/L (98-107); Glucose 170 mg/dL (74-99); Non-African American GFR(CKD) 12 (>60 ml/min/1.73 sqM); Potassium 4.4 mmol/L (3.5-5.1); Sodium 134 mmol/L (137-145)
[2024-07-31 07:16] LABS: HCT 23.3 % (39.6-50.0); HGB 8.3 g/dL (13.0-17.0); MCHC 35.6 g/dL (32.0-37.0); MCV 118.9 fL (80.0-97.0); Mean Platelet Volume 10.2 fL (9.5-12.2); Platelet Count 125 10*3/uL (140-440); RBC 1.96 10*6/uL (4.40-5.60); RDW 17.2 % (11.5-14.5); WBC 5.67 10*3/uL (4.50-10.00)
[2024-07-31 07:22] LABS: MCH 42.3 pg (27.0-32.0)
[2024-07-31] MEDS: LIDOCAINE 1% INJ 10MG/ML (20 ML MDV) SQ ONE (07:31)
[2024-07-31] MEDS: MIDAZOLAM 2 MG/2 ML VIAL IVP ONE (07:31)
[2024-07-31] MEDS: fentaNYL (PF) 50 MCG/1 ML VIAL IVP ONE (07:31)
[2024-07-31] MEDS: IOPAMIDOL-370 100ML BTL INJ ONE (08:33)
[2024-07-31 08:37] LABS: Eosinophils # (M) 0.11 k/uL (0-0.7); Lymphocytes # (M) 1.64 k/uL (1.0-4.8); Monocytes # (M) 0.68 k/uL (0-1.0); Neutrophils # (M) 3.23 k/uL (1.3-7.7); Neutrophils % (M) 57 %; Nucleated Red Blood Cells 0 /100 WBC (0-0); Total Cells Counted 100
[2024-07-31 08:38] LABS: Anisocytosis (M) Present; Poikilocytosis (M) Present; Polychromasia Present
--- NOTE | 2024-07-31 08:40 | P.OP ---
Date of Procedure: 07/31/24 Description of Procedure: Preoperative diagnosis: Malfunctioning right upper extremity arteriovenous fistula, end-stage renal disease Postoperative diagnosis: Same, cephalic branches stealing from access site Procedure: Right upper extremity fistulogram with ultrasound guided access, branch ligation of the cephalic vein Surgeon: Masood Anaya DO Anesthesia : Local Estimated blood loss: Minimal Complications: None Condition: Stable Disposition: Palpable thrill at the fistula site Indications: 79-year-old gentleman with history of end-stage renal disease on hemodialysis via right upper extremity arteriovenous fistula presents secondary to continued infiltration due to inability to access. Patient presents for fistulogram and branch ligation seen on ultrasound. Operative narrative: After written informed consent was obtained the patient all risks benefits competitions were described the patient is brought to the Content Strategy Lead and laid in a supine position with their right arm outstretched on an armboard. The area of the arm was prepped and draped in usual sterile fashion. Utilizing local anesthetic the fistula was accessed under ultrasound guidance and a 6-Upper Sorbian sheath was placed. Fistulogram was then obtained demonstrating patent fistula with 2 branches leading 1 to the basilic and 1 to the cephalic vein with 2 branches extending from the cephalic vein. Local anesthetic was infused overlying these areas and dissection was carried down to the branches and they were suture-ligated with 3-0 Prolene suture. Once completed improved thrill noted at the access site for the fistula angiogram was obtained demonstrating brisk flow into the cephalic vein extending up towards the basilic vein. Patient tolerated procedure well and was sent to PACU for recovery. Of note the vein at the mid forearm does dive to roughly 8 to [address] the way from the wrist to the mid forearm is roughly 6 mm in depth. It does improve at the antecubital fossa and does come up to around 4 mm.
[2024-07-31 08:49] VITALS: BP 164/67
[2024-07-31 09:53] VITALS: PULSE 65
--- NOTE | 2024-07-31 15:23 | IR ---
Fluoroscopy INDICATION: Pain FINDINGS: Fluoroscopy time: 3.4 minutes Total dose area product (DAP) in uGy*m?, mGy*cm? (or similar): 0.0154 Images obtained: 10 sequences. Images document fistula evaluation IMPRESSION: 1. Documentation of fluoroscopy. [facility], , 07/31/2024 3:21 PM
== END 2024-07-31 09:45 | disposition home or self-care (01) ==
LOC: CATHCVL 05:38
PROVIDERS: ATTEND Surgery
DX: T82.590A Other mechanical complication of surgically created arteriovenous fistula, initial encounter (principal); N18.6 End stage renal disease; E11.9 Type 2 diabetes mellitus without complications; E66.01 Morbid (severe) obesity due to excess calories; Z68.38 Body mass index [BMI] 38.0-38.9, adult; Z99.2 Dependence on renal dialysis; Z79.02 Long term (current) use of antithrombotics/antiplatelets; Z79.82 Long term (current) use of aspirin; Z79.899 Other long term (current) drug therapy
CPT/HCPCS: 36901; 36909; 80048; 85025; C1894; C1769 ×2; J2250; J2003; Q9967; J3010

== ENCOUNTER → 2024-08-30 | Day surgery (SDC) | payer MEDICARE, BC ==
[~2024-08-30] MED LIST changes: +ALPRAZolam 0.25 MG TAB PO PRN; +ALPRAZolam 0.5 MG TAB PO PRN; +ASPIRIN 325 MG TAB PO ONE; +ATORVASTATIN 80 MG TAB PO ONE; -LIDOCAINE 1% (10MG/ML) FOR IV START INTRADERMA PRN; +NITROGLYCERIN SL TABS 0.4 MG TAB SUBLINGUAL PRN
[2024-08-30 08:53] LABS: Glucose,Whole Blood 146 mg/dL (70-110)
[2024-08-30 08:56] VITALS: TEMP 97.6
[2024-08-30] MEDS: IV FLUID CONTINUATION 1,000 ML IV ONE (09:00)
[2024-08-30] MEDS: SODIUM CHLORIDE 0.9% 1,000 ML in EMPTY BAG 1 BAG IV SCH (09:00)
[2024-08-30] MEDS: HEPARIN SODIUM,PORCINE 10,000 UNIT in SODIUM CHLORIDE 0.9% 1,000 ML IRRIGATION PRN (10:38)
[2024-08-30] MEDS: MIDAZOLAM 2 MG/2 ML VIAL IVP ONE (10:38)
[2024-08-30] MEDS: HEPARIN SODIUM,PORCINE (1 ML) 2,500 UNIT in SODIUM CHLORIDE 0.9% 250 ML IRRIGATION PRN (10:38)
[2024-08-30] MEDS: LIDOCAINE 1% INJ 10MG/ML (20 ML MDV) SQ ONE (10:44)
[2024-08-30] MEDS: IOPAMIDOL-370 100ML BTL INJ ONE ×2 (11:08→11:17)
[2024-08-30 13:16] VITALS: RESP 16
[2024-08-30 13:18] VITALS: PULSE 68
[2024-08-30 17:06] VITALS: BP 144/66
--- NOTE | 2024-08-30 22:48 | CC ---
CARDIAC CATHETERIZATION REPORT PROCEDURES PERFORMED: Left heart catheterization and coronary angiography, selective injection of left internal mammary artery graft and vein graft and free radial graft. ANESTHESIA: Moderate conscious sedation time was 33 minutes. The patient was administered Versed. Oxygen saturation, hemodynamics, and EKG were monitored closely. CLINICAL INFORMATION: Mr. Jaya Klein is a 79-year-old gentleman with a known history of diabetes, hypertension, hyperlipidemia, CAD, and he has developed end-stage renal disease and is currently on hemodialysis. He has been having symptoms of angina and is known to have previous PCI and bypass surgery. He was brought in for the cardiac cath electively. He underwent aortocoronary bypass surgery in May 2005 with a CHANG to LAD and 3 vein grafts to the ramus intermedius, diagonal, and distal RCA. He also had a free radial artery graft to the obtuse marginal branch of circumflex. All the 3 vein grafts to the ramus diagonal and distal RCA were occluded and in September 2011, I performed PTCA of [place] RCA after he presented with a non-ST elevated. In 2012, I performed a repeat coronary angiogram, which revealed that free radial artery graft to the obtuse marginal, CHANG to LAD, and the [place] RCA were all patent. Because of unstable angina, I brought him for the procedure electively. PROCEDURE NOTE: Under local anesthesia and strict aseptic precautions, a 6-Omani introducer was placed in the right femoral artery using micropuncture needle technique. A 6-Omani introducer was placed. I used a standard left Vanessa catheter for left coronary artery and Germán catheter for the CHANG and also I was able to inject the free radial artery graft to the obtuse marginal branch and I also used the same catheter for the right coronary artery. I used a AR2 catheter to selective injection of the radial artery graft to the obtuse marginal and checked the LV pressures with a pigtail catheter. Following the procedure, the sheath was taken out and Angio-Seal device used to secure hemostasis and he was sent to the room in a stable condition. Findings were discussed with the patient and . He was advised medical therapy without percutaneous intervention. CARDIAC CATHETERIZATION FINDINGS: The left ventricular end-diastolic pressure was about 10 mmHg without any gradient across aortic valve. CORONARY ANGIOGRAPHY FINDINGS: Left main coronary artery: This is a patent long vessel. Distally, there is about a 40% to 50% lesion. I try then to trifurcate into LAD, ramus, and circumflex. Left anterior descending coronary artery: This vessel is totally occluded without antegrade flow. Left posterior circumflex coronary artery: This is a relatively fair caliber vessel that runs in the AV groove and the obtuse marginal branch is totally occluded and another small branch also has somewhat of a limited flow. Ramus intermedius: This is fair caliber. Had a previous graft to it. We can see the tenting where the graft was attached. There is about a 40% to 50% narrowing in the midportion of the ramus. Right coronary artery: The [place] RCA was stented in 2011. This is widely patent stented area. Has no significant disease. No more than 30% narrowing and distally bifurcates into PDA and PLV. PLV has about a 40% narrowing in the midportion. PDA is free of significant disease. No significant disease in the RCA and the PLV branch has about a 40% to 50% narrowing. Saphenous vein graft to the obtuse marginal. This graft is totally occluded. Saphenous vein graft to the right coronary artery. This is totally occluded, seen as a stump. The left internal mammary artery graft to LAD. This graft is widely patent at its origin, course, and insertion site. The CHANG is quite tortuous. Beyond the insertion site at the junction of the middle and distal one-third, there is a 70% stenosis, beyond which there is not much myocardium. LAD, therefore, has developed progression of disease. There is a 70% narrowing at the junction of the middle and distal one- third, which appears to be progression of disease. Free radial artery graft to the obtuse marginal branch of circumflex. This graft is widely patent at its origin, course, insertion site, and opacified obtuse marginal is free of significant disease other than minor irregularities. FINAL IMPRESSION: This patient has normal filling pressures. No gradient. A right-dominant system with a patent RCA. No significant disease, but the PLV branch of RCA has a 40% to 45% mid narrowing. Left main has a 40% to 50% narrowing and LAD is 100% occluded. Ramus has a 50% lesion. The opacified circumflex has minor irregularities. Three vein grafts are occluded and only 2 of them I could selectively cannulate and saw them as stumps. The free radial artery graft to obtuse marginal is widely patent with good flow and complete opacification of the obtuse marginal branches without significant disease. The CHANG to LAD graft is widely patent, but beyond the insertion site at the junction of mid and distal LAD, there is a 70% narrowing, which represents a progression of disease. RECOMMENDATION: Based on the anatomy and findings, I am recommending aggressive medical therapy with risk factor modification and would not recommend percutaneous intervention. The patient does not have a lot of myocardium beyond the stenosis in the mid/distal LAD. Findings were explained to the patient and . He will be discharged later today and will have his hemodialysis tomorrow and he will keep his appointment with me in the next 7 to 10 days. MMODL / IJN: [id number] /
== END ==
LOC: CATHCVL 08:22
PROVIDERS: ATTEND Internal Medicine Interventional Cardiology
DX: I25.710 Atherosclerosis of autologous vein coronary artery bypass graft(s) with unstable angina pectoris (principal); I25.82 Chronic total occlusion of coronary artery; Z95.5 Presence of coronary angioplasty implant and graft; E11.22 Type 2 diabetes mellitus with diabetic chronic kidney disease; I12.0 Hypertensive chronic kidney disease with stage 5 chronic kidney disease or end stage renal disease; N18.6 End stage renal disease; Z99.2 Dependence on renal dialysis; E78.5 Hyperlipidemia, unspecified; E66.9 Obesity, unspecified; Z68.41 Body mass index [BMI] 40.0-44.9, adult; Z79.02 Long term (current) use of antithrombotics/antiplatelets; Z79.82 Long term (current) use of aspirin; Z79.84 Long term (current) use of oral hypoglycemic drugs; Z79.899 Other long term (current) drug therapy; Z88.6 Allergy status to analgesic agent; Z88.1 Allergy status to other antibiotic agents; Z88.8 Allergy status to other drugs, medicaments and biological substances
CPT/HCPCS: 93459; C1760; C1894; C1769; J2250; J1644 ×2; J2003; Q9967

== ENCOUNTER 2024-09-04 14:32 | Observation (INO) | payer MEDICARE, BC ==
--- NOTE | 2024-09-04 15:29 | ED ---
URI HPI - General Chief Complaint: Upper Respiratory Infection Stated Complaint: RSV+ Time Seen by Provider: 09/04/24 14:52 Source: patient, family, RN notes reviewed Mode of arrival: ambulatory Limitations: no limitations - History of Present Illness Initial Comments: 79-year-old male sent from Dr. King's office for RSV. Patient has been experiencing productive cough and nasal drainage x 1 week. Denies chest pain, fevers, or shortness of breath. Patient does have a history of dialysis on hemodialysis Tuesday (last dialysis was yesterday), CAD on Plavix, diabetes, hyperlipidemia, and hypertension., Fevers, - Related Data Home Medications Medication Instructions Recorded Confirmed Aspirin 162 mg PO HS 11/08/13 08/30/24 Nitroglycerin Sl Tabs [Nitrostat] 0.4 mg SL Q5M PRN 07/05/19 08/30/24 Atorvastatin [Lipitor] 40 mg PO DAILY 09/26/20 08/30/24 FLUoxetine HCL [PROzac] 10 mg PO DAILY 01/05/22 08/30/24 ALPRAZolam [Xanax] 1 mg PO TID PRN 05/26/22 08/30/24 Torsemide [Soaanz] 40 mg PO W/SUPPER 12/21/22 08/30/24 carvediloL [Carvedilol] 6.25 mg PO BID 10/31/23 08/30/24 Acetaminophen [Tylenol Extra 500 mg PO DIRECTED PRN 07/27/24 08/27/24 Strength] Calcium Acetate [Phoslo] 1,334 mg PO BID-W/MEALS 07/27/24 08/30/24 Folic Acid/Vit B Complex and C 0.8 mg PO DAILY 07/27/24 08/30/24 [Kathi-Rosalinda Tablet] Clopidogrel [Plavix] 75 mg PO DAILY 07/31/24 08/30/24 Vit B Comp No.3/Folic/C/Biotin 1 each PO DIRECTED 07/31/24 08/30/24 [Kathi-Rosalinda Rx Tablet] Isosorbide Mononitrate ER [Imdur] 30 mg PO DAILY 08/27/24 08/30/24 Ranolazine [Ranexa] 500 mg PO BID 08/27/24 08/30/24 glipiZIDE [Glucotrol] 2.5 mg PO DAILY 08/27/24 08/30/24 Allergies Allergy/AdvReac Type Severity Reaction Status Date / Time adhesive Allergy red skin Verified 09/04/24 14:38 bacitracin Allergy Rash/Hives Verified 09/04/24 14:38 [From Neosporin ([id number])] bacitracin zinc Allergy Rash/Hives Verified 09/04/24 14:38 [From Neosporin ([id number])] neomycin sulfate Allergy Rash/Hives Verified 09/04/24 14:38 [From Neosporin ([id number])] polymyxin B Allergy Rash/Hives Verified 09/04/24 14:38 [From Neosporin ([id number])] paper tape Allergy red skin Uncoded 09/04/24 14:38 Review of Systems ROS Statement: Those systems with pertinent positive or pertinent negative responses have been documented in the HPI. ROS Other: All systems not noted in ROS Statement are negative. Past Medical History Past Medical History: Coronary Artery Disease (CAD), Cancer, Chest Pain / Angina, COPD, Diabetes Mellitus, Dialysis, GERD/Reflux, Hearing Disorder / Deafness, Hyperlipidemia, Hypertension, Myocardial Infarction (RI), Osteoarthritis (OA), Prostate Disorder, Renal Disease, Thyroid Disorder Additional Past Medical History / Comment(s): right arm fistula for dialysis M,W,F- "functions but sometimes infiltrates". PAST HX CARDIOMYOPATHY, RENAL C ALCULUS, SQUAMOUS CELL SKIN CANCER (2017), MILD COPD, BPH, HX OF COLON POLYPS, pancreatitis, diverticulosis, thyroid nodules, bilateral hearing aid use/poor hearing. another skin ca spot left arm 2 weeks ago. intermittent current dizzy spells. Last Myocardial Infarction Date:: 2011 History of Any Multi-Drug Resistant Organisms: None Reported Past Surgical History: Coronary Bypass/CABG, Heart Catheterization With Stent, Hernia Repair, Orthopedic Surgery Additional Past Surgical History / Comment(s): CABG X4-2006, STENT X1, UMBILICAL AND INCISIONAL HERNIA, RT SHOULDER ARTHROSCOPY, RT KNEE ARTHROSCOPY, colonoscopies, fistula right upper arm.08/30/24 heart cath Past Anesthesia/Blood Transfusion Reactions: No Reported Reaction Date of Last Stent Placement:: 2011 Past Psychological History: Anxiety Smoking Status: Former smoker - Past Family History Mother Family Medical History: Cancer, Deep Vein Thrombosis (DVT) Additional Family Medical History / Comment(s): Cervical cancer. Brother(s) Family Medical History: Cancer Additional Family Medical History / Comment(s): COLON CANCER. Sister(s) Family Medical History: Cancer Additional Family Medical History / Comment(s): LUNG CANCER. General Exam Limitations: no limitations General appearance: alert, in no apparent distress Head exam: Present: atraumatic, normocephalic, normal inspection Eye exam: Present: normal appearance, PERRL, EOMI. Absent: scleral icterus, conjunctival injection, periorbital swelling Respiratory exam: Present: normal lung sounds bilaterally, wheezes (Diffuse expiratory wheezes in all lung albrecht bilaterally). Absent: respiratory distress, rales, rhonchi, stridor Cardiovascular Exam: Present: regular rate, normal rhythm, normal heart sounds. Absent: systolic murmur, diastolic murmur, rubs, gallop, clicks Neurological exam: Present: alert, oriented X3 Psychiatric exam: Present: normal affect, normal mood Skin exam: Present: warm, dry, intact, normal color. Absent: rash Course Vital Signs 09/04/24 09/04/24 14:33 16:37 Temperature 97.8 F Pulse Rate 83 71 Respiratory 22 18 Rate Blood Pressure 167/76 143/67 O2 Sat by Pulse 97 96 Oximetry Medical Decision Making - Medical Decision Making Was pt. sent in by a medical professional or institution (, PA, RISK CONTROL OFFICER, urgent care, hospital, or half-way...) When possible be specific @ -Sent by Dr. iKng for admission Did you speak to anyone other than the patient for history (EMS, parent, family, police, friend...)? What history was obtained from this source @ -No Did you review nursing and triage notes (agree or disagree)? Why? @ -I reviewed and agree with nursing and triage notes Were old charts reviewed (outside hosp., previous admission, EMS record, old EKG, old radiological studies, urgent care reports/EKG's, half-way records)? Report findings @ -No old charts were reviewed Differential Diagnosis (chest pain, altered mental status, abdominal pain women, abdominal pain men, vaginal bleeding, weakness, fever, dyspnea, syncope, headache, dizziness, GI bleed, back pain, seizure, CVA, palpatations, mental health, musculoskeletal)? @ -RSV, COVID-19, influenza, pneumonia, bronchitis EKG interpreted by me (3pts min.). @ -As above X-rays interpreted by me (1pt min.). @ -Chest x-ray reveals no acute cardiopulmonary process CT interpreted by me (1pt min.). @ -None done U/S interpreted by me (1pt. min.). @ -None done What testing was considered but not performed or refused? (CT, X-rays, U/S, labs)? Why? @ -None What meds were considered but not given or refused? Why? @ -None Did you discuss the management of the patient with other professionals (professionals i.e. , PA, RISK CONTROL OFFICER, lab, RT, psych nurse, social staff worker, swatch clerk, teacher, chief digital media officer, case investigator)? Give summary @ -I spoke with Tierra from [facility] who accepts admission for RSV Was smoking cessation discussed for >3mins.? @ -No Was critical care preformed (if so, how long)? @ -No Were there social determinants of health that impacted care today? How? (Homelessness, low income, unemployed, alcoholism, drug addiction, transportation, low edu. Level, literacy, decrease access to med. care, detention, rehab)? @ -No Was there de-escalation of care discussed even if they declined (Discuss DNR or withdrawal of care, Hospice)? DNR status @ -No What co-morbidities impacted this encounter? (DM, HTN, Smoking, COPD, CAD, C ancer, CVA, ARF, Chemo, Hep., AIDS, mental health diagnosis, sleep apnea, morbid obesity)? @ -None Was patient admitted / discharged? Hospital course, mention meds given and route, prescriptions, significant lab abnormalities, going to OR and other pertinent info. @ - admitted. 79-year-old male sent from Dr. King's office for RSV. Patient has been experiencing nasal congestion and productive cough x 1 week. Patient is afebrile, nontachycardic, satting 100% on room air. Patient is well-appea ring, no acute distress. There is mild expiratory wheeze in all lung albrecht bilaterally. Patient is RSV positive. EKG reveals normal sinus rhythm with no acute ST changes. Chest x-ray reveals no acute cardiopulmonary process. Lab work remarkable for normal white blood cell count. Hemoglobin 9, platelets 127 comparable to previous, creatinine and BUN elevated however comparable to previous. Patient will be admitted to medicine for RSV. Patient will require routine breathing treatments and observation due to extensive medical conditions. Case was discussed with my ED attending Dr. Jonh. Undiagnosed new problem with uncertain prognosis? @ -No Drug Therapy requiring intensive monitoring for toxicity (Heparin, Nitro, Insulin, Cardizem)? @ -No Were any procedures done? @ -No Diagnosis/symptom? @ -RSV Acute, or Chronic, or Acute on Chronic? @ -Acute Uncomplicated (without systemic symptoms) or Complicated (systemic symptoms)? @ -Uncomplicated Side effects of treatment? @ -No Exacerbation, Progression, or Severe Exacerbation? @ -No Poses a threat to life or bodily function? How? (Chest pain, USA, RI, pneumonia, PE, COPD, DKA, ARF, appy, cholecystitis, CVA, Diverticulitis, Homicidal, Suicidal, threat to staff... and all critical care pts) @ -Unlikely at this time - Lab Data Result diagrams: 09/04/24 15:34 09/04/24 15:34 Lab Results 09/04/24 09/04/24 09/04/24 Range/Units 15:34 15:34 15:34 WBC 7.29 (4.50-10.00) 10*3/uL RBC 2.09 L (4.40-5.60) 10*6/uL Hgb 9.0 L (13.0-17.0) g/dL Hct 25.1 L (39.6-50.0) % MCV 120.1 H (80.0-97.0) fL MCH 43.1 H (27.0-32.0) pg MCHC 35.9 (32.0-37.0) g/dL Plt Count 127 L (140-440) 10*3/uL MPV 10.4 (9.5-12.2) fL Immature Gran % (Auto) 1.2 % Neutrophils % 61.6 % Lymphocytes % 18.8 % Monocytes % 17.4 % Eosinophils % 0.7 % Basophils % 0.3 % Immature Gran # 0.09 H (0.00-0.04) 10*3/uL Neutrophils # 4.49 (1.80-7.70) 10*3/uL Lymphocytes # 1.37 (0.90-5.00) 10*3/uL Monocytes # 1.27 H (0.20-1.00) 10*3/uL Eosinophils # 0.05 (0.04-0.35) 10*3/uL Basophils # 0.02 (0.00-0.10) 10*3/uL Manual Slide Review Performed Polychromasia Present Sodium 135 L (137-145) mmol/L Potassium 3.8 (3.5-5.1) mmol/L Chloride 94 L (98-107) mmol/L Carbon Dioxide 30 (22-30) mmol/L Anion Gap 11 mmol/L BUN 37 H (9-20) mg/dL Creatinine 4.42 H (0.66-1.25) mg/dL Est GFR (CKD-EPI)AfAm 14 (>60 ml/min/1.73 sqM) Est GFR (CKD-EPI)NonAf 12 (>60 ml/min/1.73 sqM) Glucose 149 H (74-99) mg/dL Calcium 9.7 (8.4-10.2) mg/dL Total Bilirubin 1.0 (0.2-1.3) mg/dL AST 32 (17-59) U/L ALT 19 (4-49) U/L Alkaline Phosphatase 41 (38-126) U/L Total Protein 6.3 (6.3-8.2) g/dL Albumin 4.1 (3.5-5.0) g/dL Influenza Type A (PCR) Not Detected (Not Detectd) Influenza Type B (PCR) Not Detected (Not Detectd) RSV (PCR) Detected A (Not Detectd) SARS-CoV-2 (PCR) Not Detected (Not Detectd) - EKG Data -: EKG Interpreted by Tn EKG Comments: EKG reveals normal sinus rhythm with first-degree AV block. Ventricular rate 74 bpm, parable 220, QRS duration 133, QT/QTc 437/464 Disposition Clinical Impression: RSV infection Disposition: ADMITTED IP TO THIS HOSP Referrals: Kris King MD [Primary Care Provider] - 1-2 days Time of Disposition: 17:33
--- NOTE | 2024-09-04 15:36 | XR ---
EXAMINATION TYPE: XR chest 2V DATE OF EXAM: 09/04/2024 3:23 PM COMPARISON: Chest radiographs from 05/26/2022. CLINICAL INDICATION: Male, 79 years old with history of cough; TECHNIQUE: XR chest 2V Frontal and lateral views of the chest. FINDINGS: Lungs/Pleura: There is flattening of the diaphragm with increased lucency of the lungs. No evidence o f pneumothorax, pleural effusion or focal consolidation. Pulmonary vascularity: Unremarkable. Heart/mediastinum: Cardiomediastinal silhouette is unremarkable. Musculoskeletal: No acute osseous pathology. Midline sternotomy wires are noted. Other findings: None IMPRESSION: 1. No acute cardiopulmonary disease process. 2. COPD changes. [facility], , 09/04/2024 3:34 PM
[2024-09-04 15:43] LABS: Basophils # (A) 0.02 10*3/uL (0.00-0.10); Basophils % (A) 0.3 %; Eosinophils # (A) 0.05 10*3/uL (0.04-0.35); Eosinophils % (A) 0.7 %; HCT 25.1 % (39.6-50.0); Lymphocytes # (A) 1.37 10*3/uL (0.90-5.00); Lymphocytes % (A) 18.8 %; MCHC 35.9 g/dL (32.0-37.0); Mean Platelet Volume 10.4 fL (9.5-12.2); Monocytes # (A) 1.27 10*3/uL (0.20-1.00); Monocytes % (A) 17.4 %; Neutrophils # (A) 4.49 10*3/uL (1.80-7.70); Neutrophils % (A) 61.6 %; Platelet Count 127 10*3/uL (140-440); RBC 2.09 10*6/uL (4.40-5.60); RDW 16.9 % (11.5-14.5); WBC 7.29 10*3/uL (4.50-10.00)
[2024-09-04 15:52] LABS: MCH 43.1 pg (27.0-32.0); MCV 120.1 fL (80.0-97.0)
[2024-09-04 15:55] LABS: ALT 19 U/L (4-49); AST 32 U/L (17-59); African American GFR (CKD) 14 (>60 ml/min/1.73 sqM); Albumin 4.1 g/dL (3.5-5.0); Alkaline Phosphatase 41 U/L (38-126); Anion Gap 11 mmol/L; Blood Urea Nitrogen 37 mg/dL (9-20); Calcium 9.7 mg/dL (8.4-10.2); Carbon Dioxide 30 mmol/L (22-30); Chloride 94 mmol/L (98-107); Glucose 149 mg/dL (74-99); Non-African American GFR(CKD) 12 (>60 ml/min/1.73 sqM); Potassium 3.8 mmol/L (3.5-5.1); Sodium 135 mmol/L (137-145); Total Protein 6.3 g/dL (6.3-8.2)
[2024-09-04 16:20] LABS: Influenza A Not Detected (Not Detectd); Influenza B Not Detected (Not Detectd); RSV Detected (Not Detectd)
[2024-09-04 16:44] LABS: Polychromasia Present
[2024-09-04] MEDS ORDERED: NALOXONE 0.4 MG/ML 1 ML VIAL IV PRN (17:29)
[2024-09-04] MEDS ORDERED: ACETAMINOPHEN TAB 325 MG TAB PO PRN (17:29)
[2024-09-04] MEDS ORDERED: ONDANSETRON 4 MG/2 ML VIAL IVP PRN (17:29)
[2024-09-04] MEDS: BENZONATATE 100 MG CAP PO STA (17:37)
[2024-09-04] MEDS ORDERED: NITROGLYCERIN SL TABS 0.4 MG TAB SUBLINGUAL PRN (23:02)
[2024-09-05 06:16] LABS: Glucose,Whole Blood 144 mg/dL (70-110)
[2024-09-05] MEDS: INSULIN LISPRO (HumaLOG) 100 UNIT/ML 10 mL VL SQ SCH (06:43)
[2024-09-05] MEDS: carvediloL 6.25 MG TAB PO SCH (06:44)
[2024-09-05] MEDS: TORSEMIDE 20 MG TAB PO SCH (08:50)
[2024-09-05] MEDS: ISOSORBIDE MONONITRATE ER 30 MG TAB.ER.24H PO SCH (08:50)
[2024-09-05] MEDS: RANOLAZINE 500 MG TAB.ER.12H PO SCH (08:50)
[2024-09-05] MEDS: FLUoxetine HCL 10 MG CAP PO SCH (08:51)
[2024-09-05] MEDS: ATORVASTATIN 40 MG TAB PO SCH (08:51)
[2024-09-05] MEDS: CLOPIDOGREL 75 MG TAB PO SCH (08:51)
[2024-09-05] MEDS: ALBUTEROL NEBULIZED 2.5 MG/3 ML INHALATION PRN (10:03)
--- NOTE | 2024-09-05 11:02 | P.NPCON ---
History of Present Illness - Reason for Consult end stage renal disease - History of Present Illness Patient is a 79-year-old male with end-stage renal disease on hemodialysis on Tuesday schedule. He is admitted to the hospital with complaints of cough for about 1 week along with upper respiratory tract symptoms of nasal congestion. Patient denied any fever. He was sent from his primary care physician's office due to significant shortness of breath. Patient tested positive for RSV. Currently not maintained on oxygen. O2 sats 96% on room air. Patient is afebrile No complaints of diarrhea nausea vomiting or abdominal pain. Past Medical History Past Medical History: Coronary Artery Disease (CAD), Cancer, Chest Pain / Angina, COPD, Diabetes Mellitus, Dialysis, GERD/Reflux, Hearing Disorder / Deafness, Hyperlipidemia, Hypertension, Myocardial Infarction ([place]), Osteoarthritis (OA), Prostate Disorder, Renal Disease, Thyroid Disorder Additional Past Medical History / Comment(s): right arm fistula for dialysis M,W,F- "functions but sometimes infiltrates". PAST HX CARDIOMYOPATHY, RENAL CALCULUS, SQUAMOUS CELL SKIN CANCER (2017), MILD COPD, BPH, HX OF COLON POLYPS, pancreatitis, diverticulosis, thyroid nodules, bilateral hearing aid use/poor hearing. another skin ca spot left arm 2 weeks ago. intermittent current dizzy spells. Last Myocardial Infarction Date:: 2011 History of Any Multi-Drug Resistant Organisms: None Reported Past Surgical History: Coronary Bypass/CABG, Heart Catheterization With Stent, Hernia Repair, Orthopedic Surgery Additional Past Surgical History / Comment(s): CABG X4-2006, STENT X1, UMBILICAL AND INCISIONAL HERNIA, RT SHOULDER ARTHROSCOPY, RT KNEE ARTHROSCOPY, colonoscopies, fistula right upper arm.08/30/24 heart cath Past Anesthesia/Blood Transfusion Reactions: No Reported Reaction Date of Last Stent Placement:: 2011 Past Psychological History: Anxiety Smoking Status: Former smoker Past Alcohol Use History: None Reported Additional Past Alcohol Use History / Comment(s): Quit smoking in the s, smoked 1/2 PPD. Past Drug Use History: None Reported - Past Family History Mother Family Medical History: Cancer, Deep Vein Thrombosis (DVT) Additional Family Medical History / Comment(s): Cervical cancer. Brother(s) Family Medical History: Cancer Additional Family Medical History / Comment(s): COLON CANCER. Sister(s) Family Medical History: Cancer Additional Family Medical History / Comment(s): LUNG CANCER. Medications and Allergies Home Medications Medication Instructions Recorded Confirmed Type Aspirin 162 mg PO HS@2200 11/08/13 09/04/24 History Nitroglycerin Sl Tabs [Nitrostat] 0.4 mg SL Q5M PRN 07/05/19 09/04/24 History Atorvastatin [Lipitor] 40 mg PO DAILY@0900 09/26/20 09/04/24 History FLUoxetine HCL [PROzac] 10 mg PO DAILY@0900 01/05/22 09/04/24 History ALPRAZolam [Xanax] 1 mg PO BID@0900,2200 05/26/22 09/04/24 History Torsemide [Soaanz] 40 mg PO W/SUPPER@1800 12/21/22 09/04/24 History carvediloL [Carvedilol] 6.25 mg PO BID@0900,2200 10/31/23 09/04/24 History Acetaminophen [Tylenol Extra 500 mg PO Q4H PRN 07/27/24 09/04/24 History Strength] Folic Acid/Vit B Complex and C 0.8 mg PO W/SUPPER@1800 07/27/24 09/04/24 History [Kathi-Rosalinda Tablet] Clopidogrel [Plavix] 75 mg PO DAILY@0900 07/31/24 09/04/24 History Isosorbide Mononitrate ER [Imdur] 30 mg PO DAILY@0900 08/27/24 09/04/24 History Ranolazine [Ranexa] 500 mg PO BID@1800,0 08/27/24 09/04/24 History ALPRAZolam [Xanax] 1 mg PO HS PRN 09/04/24 09/04/24 History Albuterol Nebulized [Ventolin 2.5 mg INHALATION RT-QID 09/04/24 09/04/24 History Nebulized] Budesonide 0.5 mg INHALATION RT-BID 09/04/24 09/04/24 History Calcium Acetate 667mg Capsule 1,334 mg PO BID-W/MEALS 09/04/24 09/04/24 History glipiZIDE XL [Glucotrol XL] 2.5 mg PO DAILY@0900 09/04/24 09/04/24 History Allergies Allergy/AdvReac Type Severity Reaction Status Date / Time adhesive Allergy red skin Verified 09/04/24 19:30 bacitracin Allergy Rash/Hives Verified 09/04/24 19:30 [From Neosporin ([id number])] bacitracin zinc Allergy Rash/Hives Verified 09/04/24 19:30 [From Neosporin ([id number])] neomycin sulfate Allergy Rash/Hives Verified 09/04/24 19:30 [From Neosporin ([id number])] polymyxin B Allergy Rash/Hives Verified 09/04/24 19:30 [From Neosporin ([id number])] paper tape Allergy red skin Uncoded 09/04/24 14:38 Physical Exam Vitals: Vital Signs Temp Pulse Pulse Resp BP BP Pulse Ox 09/05/24 10:20 76 09/05/24 10:04 72 09/05/24 07:44 97.6 F 78 15 163/74 96 09/05/24 00:57 98.4 F 75 17 145/72 98 09/04/24 22:13 98.6 F 74 16 173/75 96 09/04/24 21:00 71 18 151/71 96 09/04/24 19:00 71 21 152/83 95 09/04/24 18:30 77 20 149/74 97 09/04/24 18:00 72 20 147/81 98 09/04/24 17:30 76 21 132/66 97 09/04/24 16:37 71 18 143/67 96 09/04/24 16:30 71 19 134/65 97 09/04/24 16:00 73 17 136/66 96 09/04/24 14:33 97.8 F 83 22 167/76 97 Intake and Output 09/04/24 09/05/24 09/05/24 22:59 06:59 14:59 Other: # Voids 2 Weight 111.13 kg Patient is awake, comfortable, alert oriented x 3 No acute distress Examination of the heart S1 and S2 Examination of the lungs bilateral breath sounds are heard Abdomen is soft nontender Examination of lower extremities shows no significant edema OXYACETYLENE BURNER exam grossly intact Right arm AV fistula intact Results - Lab Results Most recent lab results Calcium 9.7 mg/dL (8.4-10.2) 09/04/24 15:34 09/04/24 15:34 09/04/24 15:34 Assessment and Plan Assessment: 1. End-stage renal disease on hemodialysis on Tuesday schedule 2. RSV infection 3. CKD mineral bone disorder 4. Hypertension with end-stage renal disease Plan: Hemodialysis today Patient could be discharged from nephrology standpoint post hemodialysis. Continue with [facility] with meals Thank you for the consultation. We will continue to follow the patient with you during his hospitalization.
[2024-09-05 11:41] LABS: Glucose,Whole Blood 156 mg/dL (70-110)
[2024-09-05] MEDS: CALCIUM ACETATE 667 MG TAB PO SCH (12:31)
[2024-09-05 16:59] LABS: Glucose,Whole Blood 164 mg/dL (70-110)
[2024-09-05 21:02] LABS: Glucose,Whole Blood 141 mg/dL (70-110)
[2024-09-05] MEDS: ASPIRIN 81 MG PO SCH (21:53)
[2024-09-05] MEDS: ALPRAZolam 1 MG TAB PO PRN (21:56)
--- NOTE | 2024-09-05 21:58 | P.HPIM ---
History of Present Illness H&P Date: 09/05/24 Chief Complaint: Cough and congestion Patient is a 79-year-old male with a known history of ESRD on hemodialysis, coronary artery disease history of stent placement and CABG, diabetes type 2, hearing disorder/deafness, hypertension, hyperlipidemia, history of AL, BPH, hypothyroidism, squamous cell skin cancer in 2017, anxiety who prior history of smoking. Patient presents to ER with complaints of runny nose and cough for the past 1 week. Patient was seen by his primary care physician on Tuesday. He was tested positive for RSV. Otherwise patient denies any fever at home. Cough and nasal congestion. No nausea vomiting abdominal pain or diarrhea. Laboratory data showed WBC 7.29, hemoglobin 9.0 and platelets 127, neutrophils 4.49 Sodium 135 potassium 3.8 chloride 94 bicarb is 30 BUN 37 creatinine 4.42 and blood sugar 149 liver enzymes are not elevated RSV PCR detected. Chest x-ray showed no acute cardiopulmonary process. COPD changes. EKG showed sinus rhythm with first-degree AV block Review of Systems Constitutional: Patient denies any fever or chills . No generalized weakness or weight loss. Abdomen: Patient denied nausea vomiting and diarrhea and abdominal pain. Cardiovascular: Patient denies any chest pain. Positive for short of breath no palpitations. No leg swelling Respiratory: Cough congestion runny nose and shortness of breath Neurologic: Patient denied any numbness or tingling. no headache. Musculoskeletal: Patient denies any complaints of joint swelling or deformity. Skin: Negative Psychiatric: Negative Endocrine: No heat or cold intolerance. No recent weight gain. Genitourinary: No dysuria or hematuria. All other 14 point ROS negative except the above Past Medical History Past Medical History: Coronary Artery Disease (CAD), Cancer, Chest Pain / Angina, COPD, Diabetes Mellitus, Dialysis, GERD/Reflux, Hearing Disorder / Deafness, Hyperlipidemia, Hypertension, Myocardial Infarction ([place]), Osteoarthritis ([place]), Prostate Disorder, Renal Disease, Thyroid Disorder Additional Past Medical History / Comment(s): right arm fistula for dialysis M,W,F- "functions but sometimes infiltrates". PAST HX CARDIOMYOPATHY, RENAL CALCULUS, SQUAMOUS CELL SKIN CANCER (2017), MILD COPD, BPH, HX OF COLON POLYPS, pancreatitis, diverticulosis, thyroid nodules, bilateral hearing aid use/poor hearing. another skin ca spot left arm 2 weeks ago. intermittent current dizzy spells. Last Myocardial Infarction Date:: 2011 History of Any Multi-Drug Resistant Organisms: None Reported Past Surgical History: Coronary Bypass/CABG, Heart Catheterization With Stent, Hernia Repair, Orthopedic Surgery Additional Past Surgical History / Comment(s): CABG X4-2006, STENT X1, UMBILICAL AND INCISIONAL HERNIA, RT SHOULDER ARTHROSCOPY, RT KNEE ARTHROSCOPY, colonoscop ies, fistula right upper arm.08/30/24 heart cath Past Anesthesia/Blood Transfusion Reactions: No Reported Reaction Date of Last Stent Placement:: 2011 Past Psychological History: Anxiety Smoking Status: Former smoker Past Alcohol Use History: None Reported Additional Past Alcohol Use History / Comment(s): Quit smoking in the , smoked 1/2 PPD. Past Drug Use History: None Reported - Past Family History Mother Family Medical History: Cancer, Deep Vein Thrombosis (DVT) Additional Family Medical History / Comment(s): Cervical cancer. Brother(s) Family Medical History: Cancer Additional Family Medical History / Comment(s): COLON CANCER. Sister(s) Family Medical History: Cancer Additional Family Medical History / Comment(s): LUNG CANCER. Medications and Allergies Home Medications Medication Instructions Recorded Confirmed Type Aspirin 162 mg PO HS@219911/08/13 09/04/24 History Nitroglycerin Sl Tabs [Nitrostat] 0.4 mg SL Q5M PRN 07/05/19 09/04/24 History Atorvastatin [Lipitor] 40 mg PO DAILY@0909/26/20 09/04/24 History FLUoxetine HCL [PROzac] 10 mg PO DAILY@89901/05/22 09/04/24 History ALPRAZolam [Xanax] 1 mg PO BID@0900,219905/26/22 09/04/24 History Torsemide [Soaanz] 40 mg PO W/SUPPER@1800 12/21/22 09/04/24 History carvediloL 6.25 mg PO BID@0900,219910/31/23 09/04/24 History Acetaminophen [Tylenol Extra 500 mg PO Q4H PRN 07/27/24 09/04/24 History Strength] Folic Acid/Vit B Complex and C 0.8 mg PO W/SUPPER@1800 07/27/24 09/04/24 History [Kathi-Rosalinda Tablet] Clopidogrel [Plavix] 75 mg PO DAILY@0900 07/31/24 09/04/24 History Isosorbide Mononitrate ER [Imdur] 30 mg PO DAILY@0900 08/27/24 09/04/24 History Ranolazine [Ranexa] 500 mg PO BID@1800,2200 08/27/24 09/04/24 History ALPRAZolam [Xanax] 1 mg PO HS PRN 09/04/24 09/04/24 History Albuterol Nebulized [Ventolin 2.5 mg INHALATION RT-QID 09/04/24 09/04/24 History Nebulized] Budesonide 0.5 mg INHALATION RT-BID 09/04/24 09/04/24 History Calcium Acetate 667mg Capsule 1,334 mg PO BID-W/MEALS 09/04/24 09/04/24 History glipiZIDE XL [Glucotrol XL] 2.5 mg PO DAILY@0900 09/04/24 09/04/24 History Allergies Allergy/AdvReac Type Severity Reaction Status Date / Time adhesive Allergy red skin Verified 09/04/24 19:30 bacitracin Allergy Rash/Hives Verified 09/04/24 19:30 [From Neosporin ([id number])] bacitracin zinc Allergy Rash/Hives Verified 09/04/24 19:30 [From Neosporin ([id number])] neomycin sulfate Allergy Rash/Hives Verified 09/04/24 19:30 [From Neosporin ([id number]-[id number])] polymyxin B Allergy Rash/Hives Verified 09/04/24 19:30 [From Neosporin ([id number])] paper tape Allergy red skin Uncoded 09/04/24 14:38 Physical Exam Vitals: Vital Signs Temp Pulse Pulse Resp BP BP Pulse Ox 09/05/24 10:20 76 09/05/24 10:04 72 09/05/24 07:44 97.6 F 78 15 163/74 96 09/05/24 00:57 98.4 F 75 17 145/72 98 09/04/24 22:13 98.6 F 74 16 173/75 96 09/04/24 21:00 71 18 151/71 96 09/04/24 19:00 71 21 152/83 95 09/04/24 18:30 77 20 149/74 97 09/04/24 18:00 72 20 147/81 98 09/04/24 17:30 76 21 132/66 97 09/04/24 16:37 71 18 143/67 96 09/04/24 16:30 71 19 134/65 97 09/04/24 16:00 73 17 136/66 96 09/04/24 14:33 97.8 F 83 22 167/76 97 Intake and Output 09/04/24 09/05/24 09/05/24 22:59 06:59 14:59 Other: # Voids 2 Weight 111.13 kg PHYSICAL EXAMINATION: Patient is lying in the bed,, no acute distress, awake alert and oriented. Hard of hearing.. HEENT: Normocephalic. Neck is supple. Pupils reactive. Nostrils clear. Oral cavity is moist. Neck reveals no JVD, carotid bruits, or thyromegaly. CHEST EXAMINATION: Trachea is central. Symmetrical expansion. Bilateral expiratory wheezing and occasional rhonchi. Nonlabored breathing.. CARDIAC: Normal S1, S2 with no gallops. No murmurs ABDOMEN: Soft. Bowel sounds normal. No organomegaly. No abdominal bruits. Extremities: reveal no edema. No clubbing or cyanosis Neurologically awake, alert, oriented x3 with well-coordinated movements. No gross focal deficits noted Skin: No rash or skin lesions. Psychiatric: Coperative. Nonsuicidal Musculoskeletal: No joint swelling or deformity. Results CBC & Chem 7: 09/06/24 04:49 09/06/24 04:49 Labs: Abnormal Lab Results - Last 24 Hours (Table) 09/04/24 09/04/24 09/04/24 Range/Units 15:34 15:34 15:34 RBC 2.09 L (4.40-5.60) 10*6/uL Hgb 9.0 L (13.0-17.0) g/dL Hct 25.1 L (39.6-50.0) % MCV 120.1 H (80.0-97.0) fL MCH 43.1 H (27.0-32.0) pg Plt Count 127 L (140-440) 10*3/uL Immature Gran # 0.09 H (0.00-0.04) 10*3/uL Monocytes # 1.27 H (0.20-1.00) 10*3/uL Sodium 135 L (137-145) mmol/L Chloride 94 L (98-107) mmol/L BUN 37 H (9-20) mg/dL Creatinine 4.42 H (0.66-1.25) mg/dL Glucose 149 H (74-99) mg/dL POC Glucose (mg/dL) (70-110) mg/dL RSV (PCR) Detected A (Not Detectd) 09/05/24 Range/Units 06:14 RBC (4.40-5.60) 10*6/uL Hgb (13.0-17.0) g/dL Hct (39.6-50.0) % MCV (80.0-97.0) fL MCH (27.0-32.0) pg Plt Count (140-440) 10*3/uL Immature Gran # (0.00-0.04) 10*3/uL Monocytes # (0.20-1.00) 10*3/uL Sodium (137-145) mmol/L Chloride (98-107) mmol/L BUN (9-20) mg/dL Creatinine (0.66-1.25) mg/dL Glucose (74-99) mg/dL POC Glucose (mg/dL) 144 H (70-110) mg/dL RSV (PCR) (Not Detectd) Thrombosis Risk Factor Assmnt - DVT/VTE Prophylaxis DVT/VTE Prophylaxis: Pharmacologic Prophylaxis ordered - Choose All That Apply Any of the Below Risk Factors Present?: Yes Each Factor Represents 1 point: Abnormal pulmonary function (COPD), Obesity (BMI >25), Serious lung disease incl. pneumonia (< 1month) Other Risk Factors: Yes Each Risk Factor Represents 3 Points: Age 75 years or older Other congenital or acquired thrombophilia - If yes, enter type in comment: No Thrombosis Risk Factor Assessment Total Risk Factor Score: 6 Thrombosis Risk Factor Assessment Level: High Risk Assessment and Plan Assessment: Acute RSV infection Cough congestion, runny nose and difficulty in breathing secondary to above Bronchospasm ESRD on hemodialysis MWF Hypertension Diabetes type 2 [id number] Coronary artery disease with history of stent placement and CABG Hearing disorder/deafness BPH Hypothyroidism Anxiety Prior history of smoking DVT prophylaxis with heparin subcu Plan: Patient will be continued on symptomatic management. DuoNebs as needed for w heezing/shortness of breath. Pulmicort inhalation twice daily. Current with home medications. Hemodialysis as per schedule. Nephrology team is on board. Continue to follow closely. Discussed with his family in detail. Time with Patient: Greater than 30
[2024-09-05] MEDS: BUDESONIDE 0.5 MG/2 ML NEBU INHALATION SCH (22:06)
[2024-09-06 06:02] LABS: Glucose,Whole Blood 127 mg/dL (70-110)
[2024-09-06 08:17] LABS: BUN/Creat Ratio 5.57 Ratio (12.00-20.00); Blood Urea Nitrogen 20.6 mg/dL (9.0-27.0); Calcium 8.6 mg/dL (8.7-10.3); Chloride 94 mmol/L (96-109); Glucose 99 mg/dL (70-110); Potassium 3.7 mmol/L (3.5-5.5); Sodium 134 mmol/L (135-145)
[2024-09-06 08:20] LABS: HCT 24.7 % (39.6-50.0); HGB 8.6 g/dL (13.0-17.0); MCH 42.2 pg (27.0-32.0); MCHC 34.8 g/dL (32.0-37.0); MCV 121.1 FL (80.0-97.0); NRBC Per 100 WBC 0.03 X 10*3/uL (0.00-0.01); Platelet Count 111 X 10*3/uL (140-440); RBC 2.04 X 10*6/uL (4.40-5.60); RDW 17.2 % (11.5-14.5); WBC 7.01 X 10*3/uL (4.50-10.00)
[2024-09-06] MEDS: HEPARIN SODIUM,PORCINE 5,000 UNIT/ML 1 ML VIAL SQ SCH (08:22)
[2024-09-06 08:54] VITALS: BP 133/76; RESP 16; TEMP 98.4
[2024-09-06 09:21] LABS: Basophils # (A) 0.01 X 10*3/uL (0.00-0.10); Basophils % (A) 0.1 %; Eosinophils # (A) 0.16 X 10*3/uL (0.04-0.35); Eosinophils % (A) 2.3 %; Lymphocytes # (A) 1.95 X 10*3/uL (0.90-5.00); Lymphocytes % (A) 27.8 %; Monocytes # (A) 1.16 X 10*3/uL (0.20-1.00); Monocytes % (A) 16.5 %; Neutrophils # (A) 3.67 X 10*3/uL (1.80-7.70); Neutrophils % (A) 52.4 %
[2024-09-06] MEDS: IPRATROPIUM-ALBUTEROL 3 ML NEB INHALATION PRN (09:41)
[2024-09-06 09:54] VITALS: PULSE 83
[2024-09-06 11:50] LABS: Glucose,Whole Blood 137 mg/dL (70-110)
[2024-09-06] MEDS: DARBEPOETIN ALFA 60 MCG/0.3 ML SYRINGE SQ SCH (12:34)
--- NOTE | 2024-09-06 22:12 | P.PN ---
Subjective Patient is seen for follow-up for end-stage renal disease. Status post hemodialysis yesterday No significant complaints today. Objective - Vital Signs Vital signs: Vital Signs Temp 98.4 F 09/06/24 07:49 Pulse 83 09/06/24 09:54 Resp 16 09/06/24 07:49 BP 133/76 09/06/24 07:49 Pulse Ox 96 09/06/24 09:44 FiO2 21 09/06/24 09:44 Intake & Output 09/06/24 09/06/24 09/07/24 06:59 18:59 06:59 Intake Total 500 Output Total 4500 Balance -4000 Intake: Hemodialysis 500 Output: Hemodialysis 2500 Hemodialysis Net Amount 2000 Other: # Voids 0 - Exam Patient is awake, comfortable, no Alert oriented x 3 No significant edema noted - Labs CBC & Chem 7: 09/06/24 04:49 09/06/24 04:49 Labs: Abnormal Lab Results - Last 24 Hours (Table) 09/06/24 09/06/24 09/06/24 Range/Units 04:49 04:49 06:00 RBC 2.04 L (4.40-5.60) X 10*6/uL Hgb 8.6 L (13.0-17.0) g/dL Hct 24.7 L (39.6-50.0) % MCV 121.1 H (80.0-97.0) FL MCH 42.2 H (27.0-32.0) pg RDW 17.2 H (11.5-14.5) % Plt Count 111 L (140-440) X 10*3/uL Immature Gran # 0.06 H (0.00-0.04) X 10*3/uL Monocytes # 1.16 H (0.20-1.00) X 10*3/uL NRBC/100 WBC Diff 0.03 H (0.00-0.01) X 10*3/uL Sodium 134 L (135-145) mmol/L Chloride 94 L (96-109) mmol/L Anion Gap 13.00 H (4.00-12.00) mmol/L Creatinine 3.7 H (0.6-1.5) mg/dL Est GFR (CKD-EPI) 16 L (>=60) BUN/Creatinine Ratio 5.57 L (12.00-20.00) Ratio POC Glucose (mg/dL) 127 H (70-110) mg/dL Calcium 8.6 L (8.7-10.3) mg/dL 09/06/24 Range/Units 11:48 RBC (4.40-5.60) X 10*6/uL Hgb (13.0-17.0) g/dL Hct (39.6-50.0) % MCV (80.0-97.0) FL MCH (27.0-32.0) pg RDW (11.5-14.5) % Plt Count (140-440) X 10*3/uL Immature Gran # (0.00-0.04) X 10*3/uL Monocytes # (0.20-1.00) X 10*3/uL NRBC/100 WBC Diff (0.00-0.01) X 10*3/uL Sodium (135-145) mmol/L Chloride (96-109) mmol/L Anion Gap (4.00-12.00) mmol/L Creatinine (0.6-1.5) mg/dL Est GFR (CKD-EPI) (>=60) BUN/Creatinine Ratio (12.00-20.00) Ratio POC Glucose (mg/dL) 137 H (70-110) mg/dL Calcium (8.7-10.3) mg/dL Assessment and Plan Assessment: 1. End-stage renal disease on hemodialysis on Tuesday schedule 2. RSV infection 3. CKD mineral bone disorder 4. Hypertension with end-stage renal disease Plan: Hemodialysis in AM. Patient is stable for discharge from nephrology standpoint.
--- NOTE | 2024-10-27 22:40 | P.DS ---
Providers Date of admission: 09/04/24 20:30 Expected date of discharge: 09/06/24 Attending physician: Seferino De Jesus Consults: 09/05/24 09:50 Consult Physician Urgent Consulting Provider: Dolly Wallace Consult Reason/Comments: esrd, m/w/f Do you want consulting provider notified?: Yes Primary care physician: Kris King Hospital Course: Discharge diagnosis Acute RSV infection Cough congestion, runny nose and difficulty in breathing secondary to above. Improved clinically. Bronchospasm ESRD on hemodialysis MWF Hypertension Diabetes type 2 [id number] Coronary artery disease with history of stent placement and CABG Hearing disorder/deafness BPH Hypothyroidism Anxiety Prior history of smoking DVT prophylaxis with heparin subcu Hospital course Patient is a 79-year-old male with a known history of ESRD on hemodialysis, coronary artery disease history of stent placement and CABG, diabetes type 2, hearing disorder/deafness, hypertension, hyperlipidemia, history of [place], BPH, hypothyroidism, squamous cell skin cancer in 2017, anxiety who prior history of smoking. Patient presents to ER with complaints of runny nose and cough for the past 1 week. Patient was seen by his primary care physician on Tuesday. He was tested positive for RSV. Otherwise patient denies any fever at home. Cough and nasal congestion. No nausea vomiting abdominal pain or diarrhea. Laboratory data showed WBC 7.29, hemoglobin 9.0 and platelets 127, neutrophils 4.49 Sodium 135 potassium 3.8 chloride 94 bicarb is 30 BUN 37 creatinine 4.42 and blood sugar 149 liver enzymes are not elevated RSV PCR detected. Chest x-ray showed no acute cardiopulmonary process. COPD changes. EKG showed sinus rhythm with first-degree AV blockPlan: Patient was continued on symptomatic management. DuoNebs as needed for wheezing/shortness of breath. Pulmicort inhalation twice daily. Current with home medications. Hemodialysis as per schedule. Nephrology team is on board. Patient did improve clinically. Cleared from nephrology standpoint. Status post hemodialysis today. PHYSICAL EXAMINATION: Patient is lying in the bed comfortably, no acute distress, awake alert and oriented.. HEENT: Normocephalic. Neck is supple. Pupils reactive. Nostrils clear. Oral cavity is moist. Neck reveals no JVD, carotid bruits, or thyromegaly. CHEST EXAMINATION: Trachea is central. Symmetrical expansion. Lung albrecht clear to auscultation and percussion. CARDIAC: Normal S1, S2 with no gallops. No murmurs ABDOMEN: Soft. Bowel sounds normal. No organomegaly. No abdominal bruits. Extremities: reveal no edema. No clubbing or cyanosis Neurologically awake, alert, oriented x3 with well-coordinated movements. No focal deficits noted Skin: No rash or skin lesions. Psychiatric: Coperative. Nonsuicidal Musculoskeletal: No joint swelling or deformity. Normal range of motion. Vital signs: Vital Signs Temp 98.4 F 09/06/24 07:49 Pulse 83 09/06/24 09:54 Resp 16 09/06/24 07:49 BP 133/76 09/06/24 07:49 Pulse Ox 96 09/06/24 09:44 FiO2 21 09/06/24 09:44 Intake & Output 09/06/24 09/06/24 09/07/24 06:59 18:59 06:59 Intake Total 500 Output Total 4500 Balance -4000 Intake: Hemodialysis 500 Output: Hemodialysis 2500 Hemodialysis Net Amount 2000 Other: # Voids 0 Patient Condition at Discharge: Good Plan - Discharge Summary Discharge Rx Participant: Yes New Discharge Prescriptions: Continue Aspirin 162 mg PO HS@2200 Nitroglycerin Sl Tabs [Nitrostat] 0.4 mg SL Q5M PRN PRN Reason: Chest Pain Atorvastatin [Lipitor] 40 mg PO DAILY@0900 ALPRAZolam [Xanax] 1 mg PO BID@0900,2200 Torsemide [Soaanz] 40 mg PO W/SUPPER@1800 Folic Acid/Vit B Complex and C [Kathi-Rosalinda Tablet] 0.8 mg PO W/SUPPER@1800 Clopidogrel [Plavix] 75 mg PO DAILY@0900 Ranolazine [Ranexa] 500 mg PO BID@1800,2200 Isosorbide Mononitrate ER [Imdur] 30 mg PO DAILY@0900 Budesonide 0.5 mg INHALATION RT-BID ALPRAZolam [Xanax] 1 mg PO HS PRN PRN Reason: Anxiety/insomnia FLUoxetine HCL [PROzac] 10 mg PO DAILY@0900 carvediloL 12.5 mg PO DAILY Acetaminophen [Tylenol Extra Strength] 500 mg PO Q4H PRN PRN Reason: Pain glipiZIDE XL [Glucotrol XL] 2.5 mg PO DAILY@0900 Calcium Acetate 667mg Capsule 1,334 mg PO BID-W/MEALS Discharge Medication List Aspirin 162 mg PO HS@219911/08/13 [History] Nitroglycerin Sl Tabs [Nitrostat] 0.4 mg SL Q5M PRN 07/05/19 [History] Atorvastatin [Lipitor] 40 mg PO DAILY@0900 09/26/20 [History] FLUoxetine HCL [PROzac] 10 mg PO DAILY@0901/05/22 [History] ALPRAZolam [Xanax] 1 mg PO BID@0900,0 05/26/22 [History] Torsemide [Soaanz] 40 mg PO W/SUPPER@1800 12/21/22 [History] carvediloL 12.5 mg PO DAILY 10/31/23 [History] Acetaminophen [Tylenol Extra Strength] 500 mg PO Q4H PRN 07/27/24 [History] Folic Acid/Vit B Complex and C [Kathi-Rosalinda Tablet] 0.8 mg PO W/SUPPER@1800 07/27/24 [History] Clopidogrel [Plavix] 75 mg PO DAILY@0907/31/24 [History] Isosorbide Mononitrate ER [Imdur] 30 mg PO DAILY@89908/27/24 [History] Ranolazine [Ranexa] 500 mg PO BID@1800,219908/27/24 [History] ALPRAZolam [Xanax] 1 mg PO HS PRN 09/04/24 [History] Budesonide 0.5 mg INHALATION RT-BID 09/04/24 [History] Calcium Acetate 667mg Capsule 1,334 mg PO BID-W/MEALS 09/04/24 [History] glipiZIDE XL [Glucotrol XL] 2.5 mg PO DAILY@0909/04/24 [History] Follow up Appointment(s)/Referral(s): Kris King MD [Primary Care Provider] - 1-2 days Discharge Disposition: HOME SELF-CARE
== END 2024-09-06 13:33 | disposition home or self-care (01) ==
LOC: EC 14:32 → 4SSUR 20:30
PROVIDERS: ADMIT Hospitalist; ATTEND Hospitalist
DX: J06.9 Acute upper respiratory infection, unspecified (principal); B97.4 Respiratory syncytial virus as the cause of diseases classified elsewhere; E11.22 Type 2 diabetes mellitus with diabetic chronic kidney disease; I12.0 Hypertensive chronic kidney disease with stage 5 chronic kidney disease or end stage renal disease; N18.6 End stage renal disease; M89.8X9 Other specified disorders of bone, unspecified site; E03.9 Hypothyroidism, unspecified; E78.5 Hyperlipidemia, unspecified; F41.9 Anxiety disorder, unspecified; H91.90 Unspecified hearing loss, unspecified ear; I25.10 Atherosclerotic heart disease of native coronary artery without angina pectoris; I25.2 Old myocardial infarction; I42.9 Cardiomyopathy, unspecified; I44.0 Atrioventricular block, first degree; J44.9 Chronic obstructive pulmonary disease, unspecified; J98.01 Acute bronchospasm; N40.0 Benign prostatic hyperplasia without lower urinary tract symptoms; K21.9 Gastro-esophageal reflux disease without esophagitis; Z79.02 Long term (current) use of antithrombotics/antiplatelets; Z79.51 Long term (current) use of inhaled steroids; Z79.82 Long term (current) use of aspirin; Z79.84 Long term (current) use of oral hypoglycemic drugs; Z79.899 Other long term (current) drug therapy; Z80.1 Family history of malignant neoplasm of trachea, bronchus and lung; Z85.828 Personal history of other malignant neoplasm of skin; Z87.891 Personal history of nicotine dependence; Z95.1 Presence of aortocoronary bypass graft; Z95.5 Presence of coronary angioplasty implant and graft; Z97.4 Presence of external hearing-aid; Z99.2 Dependence on renal dialysis
CPT/HCPCS: 96372; 99284; 36415; 94640 ×3; 94760; 93005; 80053; 80048; 85025 ×2; 87636; 71046; G0257; G0378 ×3; J1644; J0881; 90935

== ENCOUNTER 2024-09-25 08:32 | Day surgery (SDC) | payer MEDICARE, BC ==
[~2024-09-25 08:32] MED LIST changes: -ASPIRIN 325 MG TAB PO ONE; -ATORVASTATIN 80 MG TAB PO ONE; +HEPARIN SODIUM,PORCINE (1 ML) 2,500 UNIT in SODIUM CHLORIDE 0.9% 250 ML IRRIGATION PRN; +HEPARIN SODIUM,PORCINE 10,000 UNIT in SODIUM CHLORIDE 0.9% 1,000 ML IRRIGATION PRN
[2024-09-25] MEDS: IV FLUID CONTINUATION 1,000 ML IV ONE (09:13)
[2024-09-25] MEDS: SODIUM CHLORIDE 0.9% 1,000 ML in EMPTY BAG 1 BAG IV SCH (09:18)
[2024-09-25] MEDS: ASPIRIN 325 MG TAB PO STA (09:18)
[2024-09-25 09:21] LABS: Glucose,Whole Blood 146 mg/dL (70-110)
[2024-09-25] MEDS: LIDOCAINE 2% (PF) 20 MG/ML 5 ML VIAL SQ ONE (10:58)
[2024-09-25] MEDS: HEPARIN SODIUM 1,000 UN/ML (10ML VL) IVP ONE (11:07)
[2024-09-25] MEDS: MIDAZOLAM 2 MG/2 ML VIAL IVP ONE (11:21)
[2024-09-25] MEDS: NITROGLYCERIN 1000MCG/10ML SYRINGE INTRACORON ONE (11:23)
[2024-09-25] MEDS: CLOPIDOGREL 75 MG TAB PO ONE (11:33)
[2024-09-25] MEDS: HEPARIN SODIUM,PORCINE (1 ML) 2,500 UNIT in SODIUM CHLORIDE 0.9% 250 ML IRRIGATION ONE (11:34)
[2024-09-25] MEDS: HEPARIN SODIUM,PORCINE 10,000 UNIT in SODIUM CHLORIDE 0.9% 1,000 ML IRRIGATION ONE (11:34)
[2024-09-25] MEDS: FAMOTIDINE 20 MG TAB PO STA (12:28)
[2024-09-25] MEDS ORDERED: ACETAMINOPHEN TAB 500 MG TAB PO PRN (12:30)
[2024-09-25] MEDS ORDERED: NITROGLYCERIN SL TABS 0.4 MG TAB SUBLINGUAL PRN (12:30)
[2024-09-25] MEDS ORDERED: ALPRAZolam 1 MG TAB PO PRN (12:30)
--- NOTE | 2024-09-25 16:48 | P.NPCON ---
History of Present Illness - Reason for Consult end stage renal disease - History of Present Illness Patient is a 79-year-old male with end-stage renal disease, maintained on hemodialysis on Tuesday schedule. Patient was admitted for elective cardiac catheterization. He had a stent placed in RCA. There was concern for volume overload as filling pressures were elevated during cardiac catheterization. Patient denies any significant shortness of breath however he has lower extremity edema. Complaining of heartburn No fever chills nausea vomiting or abdominal pain. Past Medical History Past Medical History: Coronary Artery Disease (CAD), Cancer, Chest Pain / Angina, COPD, Diabetes Mellitus, Dialysis, GERD/Reflux, Hearing Disorder / Deafness, Hyperlipidemia, Hypertension, Myocardial Infarction ([place]), Osteoarthritis (OA), Prostate Disorder, Renal Disease, Thyroid Disorder Additional Past Medical History / Comment(s): right arm fistula for dialysis M,W,F- "functions but sometimes infiltrates". PAST HX CARDIOMYOPATHY, RENAL CALCULUS, SQUAMOUS CELL SKIN CANCER (2017), MILD COPD, BPH, HX OF COLON POLYPS, pancreatitis, diverticulosis, thyroid nodules, bilateral hearing aid use/poor hearing. another skin ca spot left arm 2 weeks ago. intermittent current dizzy spells. Last Myocardial Infarction Date:: 2011 History of Any Multi-Drug Resistant Organisms: None Reported Past Surgical History: Coronary Bypass/CABG, Heart Catheterization With Stent, Hernia Repair, Orthopedic Surgery Additional Past Surgical History / Comment(s): CABG X4-2006, STENT X1, UMBILICAL AND INCISIONAL HERNIA, RT SHOULDER ARTHROSCOPY, RT KNEE ARTHROSCOPY, colonoscopies, fistula right upper arm.08/30/24 heart cath Past Anesthesia/Blood Transfusion Reactions: No Reported Reaction Date of Last Stent Placement:: 2011 Smoking Status: Former smoker - Past Family History Mother Family Medical History: Cancer, Deep Vein Thrombosis (DVT) Additional Family Medical History / Comment(s): Cervical cancer. Brother(s) Family Medical History: Cancer Additional Family Medical History / Comment(s): COLON CANCER. Sister(s) Family Medical History: Cancer Additional Family Medical History / Comment(s): LUNG CANCER. Medications and Allergies Home Medications Medication Instructions Recorded Confirmed Type Aspirin 162 mg PO HS@2200 11/08/09/25/24 History Nitroglycerin Sl Tabs [Nitrostat] 0.4 mg SL Q5M PRN 07/05/19 09/21/24 History Atorvastatin [Lipitor] 40 mg PO DAILY@0900 09/26/20 09/25/24 History FLUoxetine HCL [PROzac] 10 mg PO DAILY@89901/05/22 09/25/24 History ALPRAZolam [Xanax] 1 mg PO BID@0900,2200 05/26/22 09/25/24 History Torsemide [Soaanz] 40 mg PO W/SUPPER@1800 12/21/22 09/25/24 History carvediloL 12.5 mg PO DAILY 10/31/23 09/25/24 History Acetaminophen [Tylenol Extra 500 mg PO Q4H PRN 07/27/24 09/21/24 History Strength] Folic Acid/Vit B Complex and C 0.8 mg PO W/SUPPER@1800 07/27/24 09/25/24 History [Kathi-Rosalinda Tablet] Clopidogrel [Plavix] 75 mg PO DAILY@0900 07/31/24 09/25/24 History Isosorbide Mononitrate ER [Imdur] 30 mg PO DAILY@0900 08/27/24 09/25/24 History Ranolazine [Ranexa] 500 mg PO BID@1800,2200 08/27/24 09/25/24 History ALPRAZolam [Xanax] 1 mg PO HS PRN 09/04/24 09/21/24 History Budesonide 0.5 mg INHALATION RT-BID 09/04/24 09/21/24 History Calcium Acetate 667mg Capsule 1,334 mg PO BID-W/MEALS 09/04/24 09/25/24 History glipiZIDE XL [Glucotrol XL] 2.5 mg PO DAILY@0909/04/24 09/25/24 History Allergies Allergy/AdvReac Type Severity Reaction Status Date / Time adhesive Allergy red skin Verified 09/21/24 13:01 bacitracin Allergy Rash/Hives Verified 09/21/24 13:01 [From Neosporin ([id number])] bacitracin zinc Allergy Rash/Hives Verified 09/21/24 13:01 [From Neosporin ([id number])] neomycin sulfate Allergy Rash/Hives Verified 09/21/24 13:01 [From Neosporin ([id number])] polymyxin B Allergy Rash/Hives Verified 09/21/24 13:01 [From Neosporin ([id number])] paper tape Allergy red skin Uncoded 09/21/24 13:01 Physical Exam Vitals: Vital Signs Temp Pulse Resp BP BP Pulse Ox 09/25/24 15:11 97.5 F L 67 18 166/81 99 09/25/24 13:45 67 16 136/70 95 09/25/24 13:15 67 16 145/70 93 L 09/25/24 12:45 70 16 137/63 97 09/25/24 12:30 71 16 146/79 97 09/25/24 12:15 70 16 161/82 97 09/25/24 12:00 68 16 158/73 98 09/25/24 11:49 70 16 147/85 98 09/25/24 09:18 97.4 F L 79 16 132/65 96 Intake and Output 09/25/24 09/25/24 09/25/24 06:59 14:59 22:59 Intake Total 450 Balance 450 Intake: IV 450 Other: Weight 110 kg Patient is awake, comfortable, no acute distress Examination of the heart S1 and S2 Examination of the lungs bilateral breath sounds are heard Abdomen is soft nontender Examination of lower extremities shows edema 2+ bilaterally [employer] exam grossly intact Assessment and Plan Assessment: 1. End-stage renal disease on hemodialysis on Tuesday schedule 2. Volume overload 3. Coronary artery disease status post cardiac catheterization and RCA stent placement 4. Hypertension with CKD 5. CKD mineral bone disorder Plan: Hemodialysis today for about 2 hours and repeat again in a.m. Resume home antihypertensive medications Resume PhosLo with meals Thank you for the consultation. Will continue to follow the patient with you during his hospitalization.
[2024-09-25] MEDS: FOLIC ACID-VIT B COMPLEX-VIT C 1 CAP PO SCH (18:10)
[2024-09-25] MEDS: TORSEMIDE 20 MG TAB PO SCH (18:10)
[2024-09-25] MEDS: CALCIUM ACETATE 667 MG TAB PO SCH (18:10)
[2024-09-25] MEDS: RANOLAZINE 500 MG TAB.ER.12H PO SCH (18:10)
[2024-09-25] MEDS: FAMOTIDINE 20 MG TAB PO PRN (18:36)
[2024-09-25] MEDS: BUDESONIDE 0.5 MG/2 ML NEBU INHALATION SCH (19:58)
[2024-09-25] MEDS: ASPIRIN 81 MG PO SCH (20:38)
[2024-09-25] MEDS: ALPRAZolam 1 MG TAB PO SCH (20:38)
--- NOTE | 2024-09-25 22:26 | CC ---
CARDIAC CATHETERIZATION REPORT PROCEDURE: Percutaneous transluminal coronary angioplasty and stenting of the posterior left ventricular artery branch of right coronary artery. PERFORMED BY: Dr. Olamide Bhatti. ASSISTED BY: Dr. Black. Moderate conscious sedation time was 28 minutes. The patient was administered Versed. Oxygen saturation, hemodynamics, and EKG were monitored closely. CLINICAL INFORMATION: Mr. Jaya Klein is a 79-year-old gentleman with a history of CAD, prior bypass surgery, and MS. Also, had a PCI of RCA in the proximal portion performed in 2011 with a drug-eluting stent. Recently because of abnormal stress test, I performed a cardiac cath which revealed that the CHANG to LAD was patent and a free radial artery graft to the OM was patent, but the LAD beyond the insertion site had diffuse disease in the mid and distal portion. Additionally, his viejas RCA was patent proximally where the stent was located, but the PLV branch had a very eccentric lesion, which I initially thought was not significant, but upon review, seemed quite significant and because of the patient's continued symptoms of angina, I recommended coronary angiography and PCI of PLV branch of circumflex and brought in for the procedure. PROCEDURE NOTE: Under local anesthesia and strict aseptic precautions with the help of ultrasound, we gained access into the right femoral artery using ultrasound guidance. 6-Divehi long 23 cm sheath was placed. [facility] guide catheter was used to cannulate the right coronary artery. A run-through wire was used to cross the lesion. Predilatation was performed with a 2.5 caliber 12 mm NC Trek balloon. A 3.0 caliber 12 mm Xience stent was deployed. Intravascular ultrasound was performed. Following this, we went ahead with a 3.25 caliber 8 mm NC Trek balloon and post dilated. I performed an ultrasound which revealed that the stented segment was fully expanded. The stent was fully expanded and well apposed. The entire vessel had mild diffuse disease and calcification, but no critical stenosis. Very proximally within the previous stent, there was no evidence of significant restenosis. Proximal to the stent, also there was area of haziness with moderate disease. However, no significant lesions were detected. The stented segment was widely patent with a fully expanded stent and well-opposed struts. Final angiogram revealed excellent result. The catheter and wire were taken out. LV pressures were checked using a pigtail catheter. End-diastolic pressure was about 16 mmHg. No gradient. The sheath was taken out and Angio-Seal device used to secure hemostasis, and he was sent to the room in a stable condition. He received 300 mg of Plavix. He was already on aspirin and Plavix. Additionally, he received 6500 units of heparin. ACT at the end of the procedure was 279. Results were discussed with the patient and . I expect he will be discharged tomorrow after dialysis. This patient has end- stage renal disease, diabetes, hypertension, and hyperlipidemia. This patient will be on aspirin and Plavix without interruption for 1 year. MMODL / IJN: [id number] /
[2024-09-26 05:28] LABS: African American GFR (CKD) 18 (>60 ml/min/1.73 sqM); Anion Gap 7 mmol/L; Blood Urea Nitrogen 24 mg/dL (9-20); Calcium 8.7 mg/dL (8.4-10.2); Carbon Dioxide 32 mmol/L (22-30); Chloride 96 mmol/L (98-107); Glucose 102 mg/dL (74-99); Non-African American GFR(CKD) 15 (>60 ml/min/1.73 sqM); Potassium 3.9 mmol/L (3.5-5.1); Sodium 135 mmol/L (137-145)
[2024-09-26 05:45] LABS: Basophils # (A) 0.02 10*3/uL (0.00-0.10); Basophils % (A) 0.4 %; Eosinophils # (A) 0.15 10*3/uL (0.04-0.35); Eosinophils % (A) 2.7 %; HCT 23.9 % (39.6-50.0); HGB 8.4 g/dL (13.0-17.0); Lymphocytes # (A) 1.55 10*3/uL (0.90-5.00); Lymphocytes % (A) 27.6 %; MCHC 35.1 g/dL (32.0-37.0); Mean Platelet Volume 10.2 fL (9.5-12.2); Monocytes # (A) 0.92 10*3/uL (0.20-1.00); Monocytes % (A) 16.4 %; Neutrophils # (A) 2.94 10*3/uL (1.80-7.70); Neutrophils % (A) 52.2 %; RBC 1.98 10*6/uL (4.40-5.60); RDW 16.2 % (11.5-14.5); WBC 5.62 10*3/uL (4.50-10.00)
[2024-09-26 07:55] LABS: Platelet Count 96 10*3/uL (140-440)
[2024-09-26 08:17] VITALS: RESP 15
[2024-09-26] MEDS: carvediloL 12.5 MG TAB PO SCH (08:52)
[2024-09-26 09:20] LABS: MCV 120.7 fL (80.0-97.0)
[2024-09-26 09:22] LABS: MCH 42.4 pg (27.0-32.0)
--- NOTE | 2024-09-26 09:35 | DS ---
DISCHARGE SUMMARY DIAGNOSES: 1. Unstable angina. 2. End-stage renal disease, on hemodialysis. 3. Diabetes. 4. Hypertension. 5. Hyperlipidemia. 6. History of prior bypass surgery and PCI. HOSPITAL COURSE: Mr. Klein was admitted to the hospital for coronary angiogram and PCI of the PLV branch of a dominant RCA. Previously stented RCA was in the proximal and midportion, which was patent. The procedure was performed uneventfully. He had a single 3.0 caliber 12 mm Xience stent deployed post dilated with a 3.25 caliber NC Trek balloon with excellent result. Postprocedure course was uneventful. His vitals are stable. His right groin is clean and dry. EKG is unremarkable. Labs are also stable. He is going to have dialysis today and then he will be discharged. Discharge instructions regarding activity, diet, and medications were given. PHYSICAL EXAMINATION: reveals; NECK: No JVD. HEART: S1-S2 heard normally. Short systolic murmur. LUNGS: Clear with fine bibasilar rales. ABDOMEN: Soft. LOWER EXTREMITIES: Reveal diminished pulses. CENTRAL NERVOUS SYSTEM: Normal. DISCHARGE INSTRUCTIONS: The patient will be discharged today and I will see him in the office on Tuesday for a followup visit. Discharge instructions were given. He will be on aspirin and Plavix without interruption for 1 year. MMODL / IJN: [id number] /
[2024-09-26 12:52] VITALS: BP 120/65; PULSE 77; TEMP 97.5
[2024-09-26] MEDS: ATORVASTATIN 40 MG TAB PO SCH (12:52)
[2024-09-26] MEDS: ISOSORBIDE MONONITRATE ER 30 MG TAB.ER.24H PO SCH (12:53)
[2024-09-26] MEDS: CLOPIDOGREL 75 MG TAB PO SCH (12:53)
[2024-09-26] MEDS: FLUoxetine HCL 10 MG CAP PO SCH (12:53)
[2024-09-26] MEDS: glipiZIDE 5 MG TAB PO SCH (12:53)
== END 2024-09-26 12:25 | disposition home or self-care (01) ==
LOC: CATHCVL 08:32 → 6NMEDSUR 11:35 → CATHCVL 09-26 12:25
PROVIDERS: ATTEND Internal Medicine Interventional Cardiology
DX: I25.10 Atherosclerotic heart disease of native coronary artery without angina pectoris (principal); I25.110 Atherosclerotic heart disease of native coronary artery with unstable angina pectoris; E11.22 Type 2 diabetes mellitus with diabetic chronic kidney disease; I12.0 Hypertensive chronic kidney disease with stage 5 chronic kidney disease or end stage renal disease; N18.6 End stage renal disease; Z99.2 Dependence on renal dialysis; J44.9 Chronic obstructive pulmonary disease, unspecified; E78.5 Hyperlipidemia, unspecified; I25.2 Old myocardial infarction; E87.70 Fluid overload, unspecified; Z95.1 Presence of aortocoronary bypass graft; Z95.5 Presence of coronary angioplasty implant and graft; Z87.891 Personal history of nicotine dependence; Z79.02 Long term (current) use of antithrombotics/antiplatelets; Z79.84 Long term (current) use of oral hypoglycemic drugs; Z79.82 Long term (current) use of aspirin
CPT/HCPCS: 94640 ×2; 94664; 93005; 92978; 80048; 85025; G0257 ×2; C9600; C1760; C1887 ×2; C1769 ×3; C1894 ×3; C1753; C1874; C1725 ×2; J2250; J1644 ×3; J2003; J2305; 90935